=== PATIENT | male | born 1950 | race Caucasian/White ===

== ENCOUNTER 2017-07-10 17:00 | Inpatient (IN) ==
--- NOTE | 2017-07-10 17:39 | Emergency Department Note ---
Disposition Clinical Impression: Hypertensive urgency Headache Qualifiers: Headache type: unspecified Headache chronicity pattern: acute headache Intractability: not intractable Qualified Code(s): R51 - Headache Abdominal pain Qualifiers: Abdominal location: generalized Qualified Code(s): R10.84 - Generalized abdominal pain Disposition: Admitted As Inpatient Condition: Undetermined Referrals: Praneeth Ruiz MD [Primary Care Provider] - Forms: Work/School Release, ED Satisfaction Letter Time of Disposition: 19:19 General Adult HPI - General Chief complaint: ED Headache Stated complaint: headache, upper abdominal pain Time Seen by Provider: 07/10/17 17:06 Source: patient Mode of arrival: ambulatory Limitations: no limitations Nursing Notes Reviewed: Yes Vital Signs Reviewed: Yes - History of Present Illness HPI Narrative: 67-year-old male with history of hypertension arrives to the emergency department complaining of abdominal pain, generalized weakness and headache that has been ongoing for the past few days. The patient states he is not sleeping well due to the abdominal pain as well as headache. The patient arrives to the emergency department with a systolic blood pressure in the 220s. He denies any chest pain but does admit to some blurred vision. He states his abdominal pain is different than any abdominal pains had the past. He denies any other complaints at this time. He is resting comfortably in the room but is a very poor historian. Onset (ago): unknown Location: head, abdomen Radiation: non-radiation Pain Severity: moderate, severe Pain Scale: 10 Quality: aching Consistency: constant, Worsening Improves with: nothing Worsens with: nothing Associated symptoms: Reports: denies other symptoms - Related Data Home Medications Medication Instructions Recorded Confirmed Albuterol Sulfate [Proventil Hfa] 8 gm IH QID 05/13/15 05/13/15 Azithromycin [Zithromax] 250 mg PO DAILY 05/13/15 05/13/15 Citalopram Hydrobromide [Celexa] 40 mg PO DAILY 05/13/15 05/13/15 Diazepam [Valium] 10 mg PO BID 05/13/15 05/13/15 Gabapentin [Neurontin] 300 mg PO TID 05/13/15 05/13/15 Hydrochlorothiazide 20 mg PO DAILY 05/13/15 05/13/15 Lisinopril [Zestril] 20 mg PO DAILY 05/13/15 05/13/15 Polyethylene Glycol 3350 [MiraLAX] 17 gm PO DAILY 05/13/15 05/13/15 PredniSONE 20 mg PO BID 05/13/15 05/13/15 Sertraline HCl [Zoloft] 20 mg PO DAILY 05/13/15 05/13/15 Sildenafil Citrate [Viagra] 25 mg PO PRN PRN 05/13/15 05/13/15 Tizanidine [Zanaflex] 4 mg PO TID 05/13/15 05/13/15 Previous Rx's Medication Instructions Recorded Trazodone HCl 50 mg PO HS #30 tablet 01/12/17 Metoclopramide [Reglan] 10 mg PO QIDAC PRN 7 Days tablet 01/15/17 MDD 40 Allergies Allergy/AdvReac Type Severity Reaction Status Date / Time No Known Allergies Allergy Verified 07/04/17 17:36 All systems ED: reviewed and negative except as stated. Constitutional: Reports: weakness. Denies: fever, chills Cardiovascular: Denies: chest pain, palpitations, dyspnea on exertion Respiratory: Denies: cough, dyspnea, wheezes Gastrointestinal: Reports: abdominal pain. Denies: nausea, vomiting, diarrhea, constipation Genitourinary: Denies: urgency, dysuria Musculoskeletal: Denies: back pain Neurological: Reports: headache. Denies: weakness, numbness, paresthesias, confusion, abnormal gait, vertigo Psychiatric: Denies: anxiety Past Medical History - Past Medical History Attestation: Yes The following information was validated with the patient. Source: patient Medical history: Reports: COPD, GERD, GI bleed, hyperlipidemia, hypertension, myocardial infarction Surgical history: Reports: no surgical history Psychiatric history: Reports: anxiety, depression - Social History Smoking Status: Current some day smoker Smokeless Tobacco Status: No Alcohol use: Reports: none Drug use: Reports: none Physical Exam Bedside U/S demonstrated no obvious aortic dilation. - General Limitations: no limitations General appearance: alert, in no apparent distress - Head Head exam: atraumatic, normocephalic, normal inspection - Eye Eye exam: Present: normal appearance, PERRL, EOMI - ENT ENT exam: normal exam, normal oropharynx, mucous membranes moist - Neck Neck exam: Present: normal inspection, full ROM, trachea midline - Chest Chest inspection: Present: normal inspection - Respiratory Respiratory exam: Present: normal lung sounds bilaterally - Cardiovascular Cardiovascular exam: Present: regular rate, normal rhythm, normal heart sounds - Abdominal Exam Abdominal exam: Present: soft, tenderness (Diffuse). Absent: Non-Tender, distention, guarding, rebound, rigidity Course Vital Signs Temperature 97.9 F 07/10/17 17:02 Pulse Rate 80 07/10/17 17:02 Respiratory Rate 18 07/10/17 17:02 Blood Pressure 217/127 07/10/17 17:02 O2 Sat by Pulse Oximetry 96 07/10/17 17:02 Temperature 97.9 F 07/10/17 17:02 Pulse Rate 91 07/10/17 18:49 Respiratory Rate 16 07/10/17 18:49 Blood Pressure 158/98 07/10/17 18:49 O2 Sat by Pulse Oximetry 96 07/10/17 18:49 Oxygen Delivery Oxygen Delivery Room Air Medical Decision Making - MDM Narrative Medical decision making narrative: Patient's workup here in the emergency Department dentures no acute process to account for the patient's symptoms. The patient does have a history of hypertension and was very hypertensive upon arrival to the emergency department. His blood pressure was initially 220. He was given 2 doses of 10 mg of hydralazine which did lower his blood pressure. The patient's current blood pressure is 158 systolic. He is feeling much better at this time. We will admit the patient to the hospitalist service for further workup and care. Patient accepted by Dr. Buck. - Lab Data Lab results reviewed: Yes I reviewed the patient's lab results. Result diagrams: 07/10/17 17:14 07/10/17 17:14 Lab Results 07/10/17 07/10/17 07/10/17 Range/Units 17:14 17:14 17:14 WBC 8.9 (4.3-11.1) K/mcL RBC 5.85 H (4.19-5.50) M/mcL Hgb 17.5 H D (12.9-16.9) g/dL Hct 49.6 (37.5-50.1) % MCV 84.8 (83.0-100.0) fL MCH 29.9 (28.0-33.3) pg MCHC 35.3 (31.6-35.5) g/dL RDW 13.1 (11.5-14.5) % Plt Count 476 H (140-400) K/mcL MPV 8.9 L (9.4-12.4) fL Immature Gran % 0.2 (0-4) % Seg Neutrophils % 81.3 % Lymphocytes % 12.4 % Monocytes % 5.1 % Eosinophils % 0.1 % Basophils % 0.9 % Neutrophils # 7.2 (1.6-8.9) K/mcL Lymphocytes # 1.1 (0.6-4.6) K/mcL Monocytes # 0.5 (0.0-1.3) K/mcL Eosinophils # 0.0 (0.0-0.6) K/mcL Basophils # 0.1 (0.0-0.2) K/mcL Sodium 134 L (136-145) mEq/L Potassium 3.5 (3.5-4.5) mEq/L Chloride 99 (98-109) mEq/L Carbon Dioxide 22 (19-29) mEq/L BUN 13 (8-26) mg/dL Creatinine 1.16 (0.72-1.25) mg/dL Est GFR ( Amer) > 60 (> 60) Est GFR (Non-Af Amer) > 60 (> 60) BUN/Creatinine Ratio 11 (6-26) Glucose 139 H (70-99) mg/dL Calculated Osmolality 280 (280-300) Calcium 10.1 (8.6-10.8) mg/dL Total Bilirubin 0.9 (0.2-1.2) mg/dL Direct Bilirubin 0.4 (0.0-0.5) mg/dL Indirect Bilirubin 0.5 (0.0-1.2) mg/dL AST 11 (5-34) Units/L ALT 13 (0-55) Units/L Alkaline Phosphatase 109 (38-126) Units/L Troponin I 0.01 (0-0.03) ng/mL Serum Total Protein 8.7 H (6.0-8.3) g/dL Albumin 4.5 (3.5-5.0) g/dL Globulin 4.2 H (2.4-3.5) g/dL Albumin/Globulin Ratio 1.1 (1.1-2.2) Urine Color (Yellow) Urine Clarity (Clear) Urine pH (5.0-8.0) pH Units Ur Specific [place] (1.010-1.025) Urine Protein (Neg-Trace) mg/dL Urine Glucose (UA) (Normal) mg/dL Urine Ketones (Negative) mg/dL Urine Blood (Negative) Urine Nitrite (Negative) Urine Bilirubin (Negative) Urine Urobilinogen (Normal) mg/dL Ur Leukocyte Esterase (Negative) Urine Microscopic RBC (0-3) per hpf Urine Microscopic WBC (0-3) per hpf Ur Squamous Epith Cells (None-Few) per lpf Urine Bacteria (None-Few) per hpf Hyaline Casts (None-Few) per lpf Ur Culture Indicated? (NO) 07/10/17 Range/Units 18:40 WBC (4.3-11.1) K/mcL RBC (4.19-5.50) M/mcL Hgb (12.9-16.9) g/dL Hct (37.5-50.1) % MCV (83.0-100.0) fL MCH (28.0-33.3) pg MCHC (31.6-35.5) g/dL RDW (11.5-14.5) % Plt Count (140-400) K/mcL MPV (9.4-12.4) fL Immature Gran % (0-4) % Seg Neutrophils % % Lymphocytes % % Monocytes % % Eosinophils % % Basophils % % Neutrophils # (1.6-8.9) K/mcL Lymphocytes # (0.6-4.6) K/mcL Monocytes # (0.0-1.3) K/mcL Eosinophils # (0.0-0.6) K/mcL Basophils # (0.0-0.2) K/mcL Sodium (136-145) mEq/L Potassium (3.5-4.5) mEq/L Chloride (98-109) mEq/L Carbon Dioxide (19-29) mEq/L BUN (8-26) mg/dL Creatinine (0.72-1.25) mg/dL Est GFR ( Amer) (> 60) Est GFR (Non-Af Amer) (> 60) BUN/Creatinine Ratio (6-26) Glucose (70-99) mg/dL Calculated Osmolality (280-300) Calcium (8.6-10.8) mg/dL Total Bilirubin (0.2-1.2) mg/dL Direct Bilirubin (0.0-0.5) mg/dL Indirect Bilirubin (0.0-1.2) mg/dL AST (5-34) Units/L ALT (0-55) Units/L Alkaline Phosphatase (38-126) Units/L Troponin I (0-0.03) ng/mL Serum Total Protein (6.0-8.3) g/dL Albumin (3.5-5.0) g/dL Globulin (2.4-3.5) g/dL Albumin/Globulin Ratio (1.1-2.2) Urine Color Yellow (Yellow) Urine Clarity Clear (Clear) Urine pH 7.0 (5.0-8.0) pH Units Ur Specific [place] 1.021 (1.010-1.025) Urine Protein 30 H (Neg-Trace) mg/dL Urine Glucose (UA) Normal (Normal) mg/dL Urine Ketones 40 H (Negative) mg/dL Urine Blood Negative (Negative) Urine Nitrite Negative (Negative) Urine Bilirubin Negative (Negative) Urine Urobilinogen Normal (Normal) mg/dL Ur Leukocyte Esterase Negative (Negative) Urine Microscopic RBC 0-3 (0-3) per hpf Urine Microscopic WBC 0-3 (0-3) per hpf Ur Squamous Epith Cells Moderate H (None-Few) per lpf Urine Bacteria None Seen (None-Few) per hpf Hyaline Casts None Seen (None-Few) per lpf Ur Culture Indicated? NO (NO) - Radiology Data Radiology results reviewed: Yes I reviewed the patient's radiology results. - EKG Data EKG #1 EKG attestation: Yes I reviewed and interpreted this EKG. EKG results narrative: Heart rate 68 bpm. GA interval 163 ms. QTc 384 ms. Normal sinus rhythm. No ST elevation or ST depression noted. EKG similar appearance to EKG from 2016. EKG #2 1846: Heart rate 97 bpm. GA interval 128 ms. QTC 4:15 milliseconds. Normal axis. Normal sinus rhythm. No ST elevation or ST depression noted. Nonspecific changes noted primarily in leads 3 from EKG performed at 1747.
[2017-07-10 17:42] LABS: Basophils # 0.1 K/mcL (0.0-0.2); Basophils % 0.9 %; Eosinophils % 0.1 %; Hematocrit 49.6 % (37.5-50.1); Immature Granulocytes % 0.2 % (0-4); Lymphocytes # 1.1 K/mcL (0.6-4.6); Lymphocytes % 12.4 %; Mean Corpuscular HGB Conc 35.3 g/dL (31.6-35.5); Mean Corpuscular Hemoglobin 29.9 pg (28.0-33.3); Mean Corpuscular Volume 84.8 fL (83.0-100.0); Mean Platelet Volume 8.9 fL (9.4-12.4); Monocytes # 0.5 K/mcL (0.0-1.3); Monocytes % 5.1 %; Neutrophils # 7.2 K/mcL (1.6-8.9); Platelet Count 476 K/mcL (140-400); Red Blood Count 5.85 M/mcL (4.19-5.50); Red Cell Distribution Width 13.1 % (11.5-14.5); Segmented Neutrophils % 81.3 %
--- NOTE | 2017-07-10 17:43 | Emergency Department Note ---
START Narrative - START START: I examined this patient and my medical decision-making was reviewed with the Resident Physician. I agree with the documented findings, disposition and treatment plan as described except to the extent set forth below. 67 yo M here for elevated BP and headache and abd pain. will do ct head and abd pelvis BP is 190 systolic despite taking his normal lisinopril dose today. has not had a bp this elevated in the past. denies cp to me. abd pain is vague in quality. no pain radiation. will do imaging and labs. bp control with hydralazine due to HR in the upper 60s. slowly titrate his bp down. anticipate admission due to age and BP
[2017-07-10 17:51] LABS: Hemoglobin 17.5 g/dL (12.9-16.9)
[2017-07-10 17:59] LABS: Alanine Aminotransferase 13 Units/L (0-55); Albumin 4.5 g/dL (3.5-5.0); Albumin/Globulin Ratio 1.1 (1.1-2.2); Alkaline Phosphatase 109 Units/L (38-126); Aspartate Amino Transferase 11 Units/L (5-34); BUN/Creatinine Ratio 11 (6-26); Bilirubin,Direct 0.4 mg/dL (0.0-0.5); Bilirubin,Indirect 0.5 mg/dL (0.0-1.2); Bilirubin,Total 0.9 mg/dL (0.2-1.2); Blood Urea Nitrogen 13 mg/dL (8-26); Calcium 10.1 mg/dL (8.6-10.8); Carbon Dioxide 22 mEq/L (19-29); Chloride 99 mEq/L (98-109); Globulin 4.2 g/dL (2.4-3.5); Glucose 139 mg/dL (70-99); Osmolality,Calculated 280 (280-300); Potassium 3.5 mEq/L (3.5-4.5); Sodium 134 mEq/L (136-145); Total Protein 8.7 g/dL (6.0-8.3); eGFR For African Americans > 60 (> 60); eGFR For Non-African Americans > 60 (> 60)
[2017-07-10] MEDS ORDERED: Ondansetron 4 MG/2 ML VIAL IVP ONE ×2 (18:14→19:51)
[2017-07-10] MEDS ORDERED: *HR* HYDROmorphone (PF) 1 MG/ML SYRINGE IVP ONE (18:29)
[2017-07-10 19:08] LABS: Bilirubin,Urine Negative (Negative); Blood,Urine Negative (Negative); Clarity,Urine Clear (Clear); Color,Urine Yellow (Yellow); Glucose,Urine (UA) Normal (Normal); Ketones,Urine 40 mg/dL (Negative); Leukocyte Esterase,Urine Negative (Negative); Nitrite,Urine Negative (Negative); Protein,Urine 30 mg/dL (Neg-Trace); Specific Gravity,Urine 1.021 (1.010-1.025); Urobilinogen,Urine Normal (Normal)
[2017-07-10 19:10] LABS: Bacteria,Urine None Seen per hpf (None-Few); Hyaline Casts,Urine None Seen per lpf (None-Few); RBC,Urine 0-3 per hpf (0-3); Squamous Epithelial Cell,Urine Moderate per lpf (None-Few); WBC,Urine 0-3 per hpf (0-3)
[2017-07-10] MEDS ORDERED: *HR* Promethazine 25 MG/ML VIAL IVP ONE (19:19)
--- NOTE | 2017-07-10 20:48 | Internal Med History&Physical ---
Date of Encounter: 07/10/17 Time of Encounter: 20:47 Assessment and Plan (1) Hypertensive urgency Current visit: Yes Status: Acute hx of HTN presented with BP of 217/127, unclear which came first whether his current symptoms are from the uncontrolled HTN or the symptoms made it impossible for him to take his medications leading to his current BP, head CT was unremarkable, will resume his medications with BP monitoring for adjustment (2) Abdominal pain Current visit: Yes Status: Acute etiology remains unclear, abdominal CT reported non calcified stones, will get USG for further evaluation, supportive management for now Qualifiers: Abdominal location: generalized Qualified Code(s): R10.84 - Generalized abdominal pain (3) Depression Current visit: Yes Status: Chronic continue home medications Qualifiers: Depression Type: major depressive disorder Major depression recurrence: recurrent Active/Remission status: in partial remission Qualified Code(s): F33.41 - Major depressive disorder, recurrent, in partial remission (4) Diabetes Current visit: Yes Status: Chronic Type II diabetes mellitus on metformin,, A1c unknown, will update, to do basal bolus insulin regimen with sliding scale insulin for hyperglycemia coverage, will hold metformin due to the possible need for contrast enhanced studies Qualifiers: Diabetes mellitus type: type 2 Diabetes mellitus complication status: with neurologic complications Diabetes mellitus complication detail: with polyneuropathy Diabetes mellitus skilled nursing insulin use: without skilled nursing use Qualified Code(s): E11.42 - Type 2 diabetes mellitus with diabetic polyneuropathy (5) GERD (gastroesophageal reflux disease) Current visit: Yes Status: Chronic continue PPI Qualifiers: Esophagitis presence: without esophagitis Qualified Code(s): K21.9 - Gastro -esophageal reflux disease without esophagitis Internal Medicine - H&P: HPI Chief complaint: headache Admitted From: Emergency Dept Plans for Post Hospital Care: Home History of present illness: Mr. Ro is a 67 year old male with a history of type II diabetes mellitus complicated by peripheral neuropathy who came to the ER today for persistent headache and abdominal pain. Patient reports that he was in his usual state of health until about 5 days ago when he began experiencing headaches located at the back of his head, achy in character which radiates to the neck. Pain is intermittent in timing, 10/10 at the peak of its severity. It is associated with poor sleep, and he denies sleeping for the past 5 days. His symptoms were also associated with general malaise, poor appetite with aches and pain. His abdominal pain is below the umbilicus, achy in character, radiates diffusely over the lower abdomen associated with nausea, no vomiting but dry heaves. No diarrhea reported. He denies any recent sick contacts, fever, chills, or upper respiratory tract infection. He came to the ER today because his headache has been constant as well as constant abdominal pain with inability to keep anything down either liquids or solids. Past Med Surg Social Fam HX - Past Medical History Source: patient Medical history: COPD, diabetes, GERD, GI bleed, hyperlipidemia, hypertension, myocardial infarction, other (sigmoid diverticulosis) Psychiatric history: anxiety, depression - Past Surgical History Surgical History: no surgical history - Social History Smoking Status: Current some day smoker Smokeless Tobacco Status: No Alcohol use: none Drug use: none Current living situation: Home - Independent Activity Level: Independent ambulation - Family History Mother Living Status: Age at : 72 Cause of : Lung Cancer Hx Family Cardiac Disorders: Yes (HTN) Hx Family Respiratory Disorders: No Hx Family Cancer: Yes (Lung) Hx Family GI Disorders: No Hx Family Genitourinary Disorders: No Hx Family Endocrine Disorder: No Hx Family Musculoskeletal Disorders: No Hx Family Neuromuscular Disorders: No Hx Family Neurologic Disorders: Yes (CVA) Hx Family HEENT Disorders: No Hx Family Autoimmune Disorders: No Hx Family Reproductive Disorders: No Hx Family Psychosocial Disorders: No Hx Family Medical Disorders: No - Additional Family History Additional family history: HTN; in both parents, DM in sister, father from a massive DC in his 50's, mother had a stroke, no family history of GI problems to his knowledge Internal Medicine - H&P: Meds Albuterol Sulfate [Proventil Hfa] 2 puff IH QID PRN 05/13/15 [History] Gabapentin [Neurontin] 300 mg PO TID 05/13/15 [History] Polyethylene Glycol 3350 [MiraLAX] 17 gm PO DAILY 05/13/15 [History] Tizanidine [Zanaflex] 4 mg PO TID PRN 05/13/15 [History] Ascorbate Calcium [Vitamin C] 500 mg PO BID 07/10/17 [History] Aspirin Enteric Coated [Aspirin EC] 81 mg PO DAILY 07/10/17 [History] Duloxetine HCl [Cymbalta] 60 mg PO DAILY 07/10/17 [History] Ferrous Gluconate 324 mg PO BID 07/10/17 [History] HydrOXYzine Pamoate [Vistaril] 50 mg PO HS 07/10/17 [History] Metformin HCl [Glucophage] 1,000 mg PO BID 07/10/17 [History] Potassium Chloride [Klor-Con 10] 10 meq PO BID 07/10/17 [History] Simvastatin [Zocor] 20 mg PO HS 07/10/17 [History] Trazodone HCl 100 mg PO HS 07/10/17 [History] 3 Allergy/AdvReac Type Severity Reaction Status Date / Time No Known Allergies Allergy Verified 07/04/17 17:36 All Systems PM: A 10-system review of systems was performed and is negative for pertinent findings except as documented above in the HPI. - Constitutional Vitals: Temp Pulse Resp BP Pulse Ox 98.2 F 94 18 167/104 96 07/10/17 20:11 07/10/17 19:28 07/10/17 20:11 07/10/17 20:11 07/10/17 19:28 GENERAL: Adult male, sitting at the edge of his bed dry heaving, Alert, in obvious distress HEENT: NC/AT, EOMI, PERRLA, anicteric sclera, normal conjunctiva, supple, clear nares, dry mucous membranes, RESP: Lungs are clear to auscultation bilaterally, with good AE, no crackles or wheeze CARDIO: Normal heart sounds with RRR, no murmurs, no JVD, no ankle edema GI: Soft, full, tenderness just below umbilicus extending to the lower abdomen with mild guarding, RUQ tenderness noted, no organomegaly felt, normal bowel sounds heard MUSCULOSKELETAL: Grossly normal movements bilaterally, no deformities noted, NEUROLOGIC: CN 2-12 intact grossly. No gross motor/sensory deficit appreciated, PSYCHIATRY: AAO x 3. SKIN: dry skin Internal Med - H&P Results - Labs CBC & Chem 7: 07/10/17 17:14 07/11/17 05:39 - Diagnostic Studies CT scan - head Status: image reviewed by me CT scan - abdomen Status: image reviewed by me
[2017-07-10] MEDS ORDERED: Ondansetron 4 MG/2 ML VIAL IVP PRN (21:01)
[2017-07-10] MEDS ORDERED: Naloxone 0.4 MG/ML INJ IVP PRN (21:01)
[2017-07-10] MEDS ORDERED: *HR* Morphine 2 MG/ML SYRINGE IVP PRN (21:04)
[2017-07-10] MEDS ORDERED: Dextrose Gel 15 GM PO PRN ×2 (21:05)
[2017-07-10] MEDS ORDERED: D5% in Water 1,000 ML IVC PRN (21:05)
[2017-07-10] MEDS ORDERED: *HR* Dextrose 50 % in Water (Syg) 50 ML SYRINGE IVP PRN (21:05)
[2017-07-10] MEDS ORDERED: *HR* Labetalol 20 MG/4 ML SYRINGE IVP PRN (21:11)
[2017-07-10] MEDS ORDERED: *HR* Morphine 2 MG/ML SYRINGE ONE (21:43)
[2017-07-10] MEDS ORDERED: Ondansetron 4 MG/2 ML VIAL ONE (21:43)
[2017-07-10] MEDS: *HR* Morphine 2 MG/ML SYRINGE IVP PRN (21:45)
[2017-07-10] MEDS: Insulin LISPRO 300 UNITS/3 ML VIAL SQ SCH (23:10)
[2017-07-10] MEDS ORDERED: Metoclopramide 10 MG/2 ML VIAL IVP PRN (23:19)
[2017-07-11] MEDS: Ondansetron 4 MG/2 ML VIAL IVP SCH ×4 (00:04→16:50)
[2017-07-11] MEDS: amLODIPine 5 MG TABLET PO SCH ×2 (00:20→08:11)
[2017-07-11] MEDS: tiZANidine 4 MG TABLET PO PRN ×2 (00:20→21:33)
[2017-07-11] MEDS: Gabapentin 300 MG CAPSULE PO SCH ×4 (00:20→20:42)
[2017-07-11] MEDS: Insulin LISPRO 300 UNITS/3 ML VIAL SQ SCH ×5 (00:21→20:39)
[2017-07-11] MEDS: 0.9 % Sodium Chloride 1,000 ML IVC SCH ×4 (00:21→21:33)
[2017-07-11] MEDS: *HR* Morphine 2 MG/ML SYRINGE IVP PRN ×4 (04:37→18:54)
[2017-07-11 06:29] LABS: BUN/Creatinine Ratio 14 (6-26); Blood Urea Nitrogen 14 mg/dL (8-26); Calcium 9.8 mg/dL (8.6-10.8); Carbon Dioxide 23 mEq/L (19-29); Chloride 99 mEq/L (98-109); Glucose 121 mg/dL (70-99); Magnesium 2.2 mg/dL (1.6-2.6); Osmolality,Calculated 280 (280-300); Phosphorous 3.4 mg/dL (2.3-4.7); Potassium 3.7 mEq/L (3.5-4.5); Sodium 134 mEq/L (136-145); eGFR For African Americans > 60 (> 60); eGFR For Non-African Americans > 60 (> 60)
[2017-07-11] MEDS: Acetaminophen 325 MG TABLET PO PRN (08:10)
[2017-07-11] MEDS: Aspirin Enteric Coated 81 MG Tablet PO SCH (08:11)
[2017-07-11] MEDS: Ascorbic Acid 500 MG TABLET PO SCH ×2 (08:11→20:41)
--- NOTE | 2017-07-11 17:01 | Electrocardiograph Report ---
[address] [address] Test Date: 2017-07-10 Pat Name: Cain Ro Department: 103 Room: 3B Gender: M Director Of Philanthropy: WINNIE : 1950 Requested By: Evan Hill Order Number: [id number] Reading MD: Mango Basurto Measurements Intervals [place] Rate: 68 P: 46 IN: 163 QRS: 31 QRSD: 89 T: 48 QT: 367 QTc: 384 Interpretive Statements SINUS RHYTHM Electronically Signed On 07-11-2017 17:00:05 EDT by Mango Basurto
--- NOTE | 2017-07-11 17:02 | Electrocardiograph Report ---
[place] [address] Test Date: 2017-07-10 Pat Name: Cain Ro Department: 103 Room: 3B64 Gender: M Activities Officer: EVER : 1950 Requested By: Evan Hill Order Number: [id number] Reading MD: Mango Basurto Measurements Intervals [place] Rate: 97 P: 3 AK: 128 QRS: 16 QRSD: 97 T: 20 QT: 361 QTc: 415 Interpretive Statements SINUS RHYTHM INFERIOR MYOCARDIAL INFARCTION, PROBABLY OLD Electronically Signed On 07-11-2017 17:00:48 EDT by Mango Basurto
--- NOTE | 2017-07-11 19:46 | Internal Med Progress Note ---
Date of Encounter: 07/11/17 Time of Encounter: 13:30 - Assessment and plan (1) Sleep difficulties Current Visit: No Status: Acute Assessment and plan: Patient reports insomnia. We will give melatonin tonight. If it helps, patient will take at home. (2) Hypertensive urgency Current Visit: Yes Status: Acute Assessment and plan: Blood pressure has returned to within normal limits. We will continue to monitor and continue home medications. (3) Headache Current Visit: Yes Status: Acute Assessment and plan: Patient with occipital headache onset 2 days ago. He denies any vision changes. His neck is nontender to palpation, does not complain of pain with movement against resistance with normal range of motion. He denies any nausea or vomiting. Head CT is negative for any acute intracranial abnormality. We will give patient medication and reevaluate in the morning. Chest X-Ray 07/10/17 17:07 IMPRESSION: No acute process. D/ / Elliot Perry MD / Elliot Perry MD Interpreting Provider: Elliot Perry MD Head CT 07/10/17 17:07 IMPRESSION: No acute intracranial abnormality. D/ / Vishnu Betts MD / Vishnu Betts MD Interpreting Provider: Vishnu Betts MD Qualifiers: Headache type: unspecified Headache chronicity pattern: acute headache Intractability: not intractable Qualified Code(s): R51 - Headache (4) Abdominal pain Current Visit: Yes Status: Acute Assessment and plan: Patient reports sudden onset "hard" lower abdominal pain with nausea. Patient appears to be periumbilical. He has no history of anything in the past. He denies constipation, nausea, vomiting, diarrhea. Onset while sitting at his desk at home. Have episodes of nausea and vomiting at the time of onset of pain. He has been able to eat and drink this evening. Abdomen is soft and nontender to palpation with bowel sounds present. Abdominal ultrasound shows small stones and/or sludge within the gallbladder, otherwise unremarkable. There is no evidence of biliary obstruction. His hepatic steatosis with areas of focal fatty sparing along the gallbladder fossa. Abdomen pelvis CT shows no acute definite acute finding in the abdomen or pelvis , there might be a suspicion of a few small noncalcified gallstones. Mild sigmoid diverticulosis with no evidence of diverticulitis is noted. Urine negative for infection. We will continue to monitor vitals, labs, and patient condition. Qualifiers: Abdominal location: generalized Qualified Code(s): R10.84 - Generalized abdominal pain (5) Diabetes Current Visit: Yes Status: Chronic Assessment and plan: Type 2 diabetes. Continue sliding scale insulin, Accu-Cheks before meals at bedtime, diabetic diet. A1c ordered for morning. Qualifiers: Diabetes mellitus type: type 2 Diabetes mellitus complication status: with neurologic complications Diabetes mellitus complication detail: with polyneuropathy Diabetes mellitus detention insulin use: without rn long term care use Qualified Code(s): E11.42 - Type 2 diabetes mellitus with diabetic polyneuropathy (6) GERD (gastroesophageal reflux disease) Current Visit: Yes Status: Chronic Assessment and plan: Patient nontender and epigastric area. He denies any GERD exacerbation or symptoms. Continue home medications. Qualifiers: Esophagitis presence: without esophagitis Qualified Code(s): K21.9 - Gastro -esophageal reflux disease without esophagitis - Time Spent With Patient less than 15 minutes - Subjective Interval history: Patient was seen and assessed at 1330 this afternoon. Patient reports sudden onset yesterday of "hard" pain with nausea. No history of anything in the past. Onset while sitting at his desk at home. Patient states that the pain awakened him from his sleep. He also reports that he has not slept for 45 days. I will give him melatonin tonight. He denies any diarrhea, he was able to eat and drink his dinner tray tonight. Patient also reports a 9/10 headache since yesterday or the day before, patient is unsure. He does state that the headache began first. It is occipital in location, he describes it as achy. He has had no vision changes and he does have neck pain. Neck is nontender to palpation, pain does not increase with movement. We will continue to monitor. - Constitutional Vitals: Temp Pulse Resp BP Pulse Ox 98.9 F 93 16 138/87 93 07/11/17 18:57 07/11/17 18:57 07/11/17 18:57 07/11/17 18:57 07/11/17 18:57 General appearance: Present: A&O X 3, pleasant, no acute distress, answers questions appropriately - Head Head exam: Present: atraumatic, normal inspection, normocephalic - Eye Eye exam: Present: normal appearance, conjuntiva pink, sclera anicteric - Neck Neck exam general surgery: Present: normal inspection, supple, trachea midline. Absent: lymphadenopathy, tenderness - Respiratory Respiratory exam: Present: CTAB. Absent: accessory muscle use, chest wall tenderness, rales, respiratory distress, rhonchi, wheezes - Cardiovascular Cardiovascular exam: Present: RRR, +S1, +S2. Absent: diastolic murmur, gallop, rubs, systolic murmur - GI/Abdominal GI/Abdominal exam: Present: normal bowel sounds, soft. Absent: distended, hepatomegaly, tenderness - Extremities Exam Extremities exam: Present: normal capillary refill, warm, radial pulses palpable and symmetrical. Absent: calf tenderness, cyanotic, pedal edema, tenderness - Neurological Exam Neurological exam: Present: alert, oriented X3, no focal deficits, strengths equal and symetr throughout. Absent: facial droop, speech deficit - Psychiatric Psychiatric exam: Present: flat affect - Skin Skin exam: Present: dry, intact, normal color, warm. Absent: rash Internal Medicine: Result - Labs CBC & Chem 7: 07/10/17 17:14 07/11/17 05:39 Labs: BMP 07/11/17 05:39 Sodium 134 L Potassium 3.7 Chloride 99 Carbon Dioxide 23 BUN 14 Creatinine 1.02 Glucose 121 H Calcium 9.8 - Impressions Impressions Abdomen Ultrasound 07/10/17 21:12 IMPRESSION: Small stones and/ or sludge is seen layering dependently within the gallbladder which is otherwise unremarkable. No evidence of biliary obstruction. Hepatic steatosis with areas of focal fatty sparing along the gallbladder fossa. D/ / Shalonda Lynn MD / Shalonda Lynn MD Interpreting Provider: Shalonda Lynn MD Consult Discharge Plan - Plan Referrals: Praneeth Ruiz MD [Primary Care Provider] - 07/26/17 9:45 am
[2017-07-11] MEDS ORDERED: Ketorolac 30 MG/ML VIAL IVP ONE (19:50)
[2017-07-11] MEDS ORDERED: Ondansetron 4 MG/2 ML VIAL IVP ONE (19:51)
[2017-07-11] MEDS: *HR* Heparin 5,000 UNIT/ML VIAL SQ SCH (20:41)
[2017-07-11] MEDS ORDERED: Melatonin 3 MG TABLET PO SCH (21:00)
[2017-07-12] MEDS: Ondansetron 4 MG/2 ML VIAL IVP SCH (00:49)
[2017-07-12] MEDS: 0.9 % Sodium Chloride 1,000 ML IVC SCH ×2 (01:31→10:10)
[2017-07-12 04:41] LABS: Basophils # 0.1 K/mcL (0.0-0.2); Eosinophils # 0.1 K/mcL (0.0-0.6); Hematocrit 42.3 % (37.5-50.1); Immature Granulocytes % 0.1 % (0-4); Lymphocytes # 2.3 K/mcL (0.6-4.6); Lymphocytes % 32.8 %; Mean Corpuscular HGB Conc 33.6 g/dL (31.6-35.5); Mean Corpuscular Hemoglobin 29.7 pg (28.0-33.3); Mean Corpuscular Volume 88.5 fL (83.0-100.0); Mean Platelet Volume 9.4 fL (9.4-12.4); Monocytes # 0.7 K/mcL (0.0-1.3); Monocytes % 9.8 %; Neutrophils # 3.9 K/mcL (1.6-8.9); Platelet Count 322 K/mcL (140-400); Red Blood Count 4.78 M/mcL (4.19-5.50); Red Cell Distribution Width 13.8 % (11.5-14.5); Segmented Neutrophils % 55.3 %
[2017-07-12 04:42] LABS: Hemoglobin 14.2 g/dL (12.9-16.9)
[2017-07-12 05:04] LABS: BUN/Creatinine Ratio 14 (6-26); Blood Urea Nitrogen 15 mg/dL (8-26); Calcium 8.6 mg/dL (8.6-10.8); Carbon Dioxide 24 mEq/L (19-29); Chloride 106 mEq/L (98-109); Glucose 102 mg/dL (70-99); Osmolality,Calculated 289 (280-300); Potassium 3.7 mEq/L (3.5-4.5); Sodium 139 mEq/L (136-145); eGFR For African Americans > 60 (> 60); eGFR For Non-African Americans > 60 (> 60)
[2017-07-12 05:38] LABS: Hemoglobin A1C 5.6 %
[2017-07-12] MEDS: Acetaminophen 325 MG TABLET PO PRN (07:40)
[2017-07-12] MEDS: Aspirin Enteric Coated 81 MG Tablet PO SCH (07:40)
[2017-07-12] MEDS: amLODIPine 5 MG TABLET PO SCH (07:40)
[2017-07-12] MEDS: Gabapentin 300 MG CAPSULE PO SCH ×2 (07:40→13:43)
[2017-07-12] MEDS: Ascorbic Acid 500 MG TABLET PO SCH (07:41)
[2017-07-12] MEDS: *HR* Heparin 5,000 UNIT/ML VIAL SQ SCH ×2 (07:41→13:43)
[2017-07-12] MEDS: Insulin LISPRO 300 UNITS/3 ML VIAL SQ SCH ×3 (07:57→16:28)
[2017-07-12] MEDS: *HR* Morphine 2 MG/ML SYRINGE IVP PRN (13:48)
[2017-07-12 15:25] VITALS: BP 154/93
[2017-07-12] MEDS ORDERED: traMADol 50 MG TABLET PO STA (15:51)
--- NOTE | 2017-07-12 15:56 | Discharge Summary ---
Date of Encounter: 07/12/17 Time of Encounter: 15:30 - Discharge Diagnosis (1) Sleep difficulties Priority: Primary Status: Acute Comments: Pt reports chronic insomnia. We discussed changing sleep hygiene, he verbalized understanding. I will send him home with Melatonin 3mg po, as well. (2) Hypertensive urgency Priority: Secondary Status: Acute Comments: hx of HTN presented with BP of 217/127, unclear which came first whether his current symptoms are from the uncontrolled HTN or the symptoms made it impossible for him to take his medications leading to his current BP, head CT was unremarkable. Normal home medications were restarted and vs have been stable. Pt also reports headache that he reports has become some better when his blood pressure is in control. Head CT negative for intracranial abnormality (3) Headache Priority: Secondary Status: Acute Comments: Pt reports occpital headache for 3 days. Pt has obtained relief with BP control and with medication. CT head negative. Pt reports FAULKNER currently resolved. He denies n/v/d, vision changes, dizziness. Pt is neurologically intact. Speech is clear, EOMI, PERRLA. Pt will be sent home with few Tramadol and will need to follow up with PCP for continued monitoring and medication adjustments. Qualifiers: Headache type: unspecified Headache chronicity pattern: acute headache Intractability: not intractable Qualified Code(s): R51 - Headache (4) Abdominal pain Priority: Secondary Status: Resolved Comments: Pt denies periumbilical abdominal pain. Denies n/v/d. Abd soft, rounded, non- tender, BS x 4. Pt without biliary obstruction, and noted hepatic steatosis. Pt has small stone and/or sludge in the gallbladder without cholecystitis. Transaminases, urine, and liver panel WNL. Unclear etiology at this time. Abdomen/Pelvis CT 07/10/17 17:36 IMPRESSION: No definite acute finding in the abdomen or pelvis with the reservation that there is suspicion of a few small noncalcified gallstones. Follow-up gallbladder ultrasound after fasting would be helpful in further evaluation. Mild sigmoid colon diverticulosis with no definite evidence of diverticulitis. D/ / Vishnu Betts MD / Vishnu Betts MD Interpreting Provider: Vishnu Betts MD Abdomen Ultrasound 07/10/17 21:12 IMPRESSION: Small stones and/ or sludge is seen layering dependently within the gallbladder which is otherwise unremarkable. No evidence of biliary obstruction. Hepatic steatosis with areas of focal fatty sparing along the gallbladder fossa. D/ / Shalonda Lynn MD / Shalonda Lynn MD Interpreting Provider: Shalonda Lynn MD Qualifiers: Abdominal location: generalized Qualified Code(s): R10.84 - Generalized abdominal pain (5) Diabetes Priority: Secondary Status: Chronic Comments: Type II diabetes mellitus on metformin,, A1c 5.6. Continue home medications and accucheck regimen. Qualifiers: Diabetes mellitus type: type 2 Diabetes mellitus complication status: with neurologic complications Diabetes mellitus complication detail: with polyneuropathy Diabetes mellitus intermediate accountant insulin use: without retirement use Qualified Code(s): E11.42 - Type 2 diabetes mellitus with diabetic polyneuropathy (6) GERD (gastroesophageal reflux disease) Priority: Secondary Status: Chronic Qualifiers: Esophagitis presence: without esophagitis Qualified Code(s): K21.9 - Gastro -esophageal reflux disease without esophagitis - Discharge Medications Prescriptions: Melatonin 3 mg PO HS PRN #6 tablet PRN Reason: Insomnia Tramadol HCl [Ultram] 50 mg PO BID PRN #4 tab PRN Reason: Headache Home Medications: Albuterol Sulfate [Proventil Hfa] 2 puff IH QID PRN 05/13/15 [History] Gabapentin [Neurontin] 300 mg PO TID 05/13/15 [History] Polyethylene Glycol 3350 [MiraLAX] 17 gm PO DAILY 05/13/15 [History] Tizanidine [Zanaflex] 4 mg PO TID PRN 05/13/15 [History] Ascorbate Calcium [Vitamin C] 500 mg PO BID 07/10/17 [History] Aspirin Enteric Coated [Aspirin EC] 81 mg PO DAILY 07/10/17 [History] Duloxetine HCl [Cymbalta] 60 mg PO DAILY 07/10/17 [History] Ferrous Gluconate 324 mg PO BID 07/10/17 [History] HydrOXYzine Pamoate [Vistaril] 50 mg PO HS 07/10/17 [History] Metformin HCl [Glucophage] 1,000 mg PO BID 07/10/17 [History] Potassium Chloride [Klor-Con 10] 10 meq PO BID 07/10/17 [History] Simvastatin [Zocor] 20 mg PO HS 07/10/17 [History] Trazodone HCl 100 mg PO HS 07/10/17 [History] Melatonin 3 mg PO HS PRN #6 tablet 07/12/17 [Rx] Tramadol HCl [Ultram] 50 mg PO BID PRN #4 tab 07/12/17 [Rx] Allergies/Adverse Reactions: 3 Allergy/AdvReac Type Severity Reaction Status Date / Time No Known Allergies Allergy Verified 07/04/17 17:36 Date of admission: 07/11/17 20:04 Primary care physician: Praneeth Ruiz MD Discharging clinician: Linda Butler Anticipated date of discharge: 07/12/17 - Patient Status Disposition: Home, Self-Care Condition: Good Functional capacity at discharge: independent ambulation Overall status at discharge: patient is back to baseline - Discharge Instructions Follow Up With: Praneeth Ruiz MD [Primary Care Provider] - 07/26/17 9:45 am Additional Instructions: Follow up with your PCP in the next 7-10 days for a follow up visit. Return to the ER as needed for any other problems or concerns. Take your medications as directed. REsume your normal activities as tolerated. - Diet and Activity Activity: resume usual activities as tolerated Diet: advance to your usual diet Hospital course: Please see assessment and plan for hospital course. - Time Spent with Patient Total time spent providing and/or coordinating discharge services: Less than 30 minutes - Constitutional Vitals: Temp Pulse Resp BP Pulse Ox 98.4 F 77 17 154/93 98 07/12/17 15:23 07/12/17 15:23 07/12/17 15:23 07/12/17 15:23 07/12/17 15:23 General appearance: Present: cooperative, A&O X 3, pleasant, no acute distress, answers questions appropriately - Head Head exam: Present: atraumatic, normal inspection, normocephalic - Expanded Head Exam Head exam expanded: Absent: abrasion, general tenderness, hematoma, tenderness of temporal artery - Eye Eye exam: Present: normal appearance, PERRL, conjuntiva pink, sclera anicteric - ENT ENT exam: Present: mucous membranes moist, normal exam, normal external ear exam - Neck Neck exam general surgery: Present: normal inspection, supple, trachea midline. Absent: lymphadenopathy, tenderness - Respiratory Respiratory exam: Present: CTAB. Absent: accessory muscle use, decreased breath sounds, rales, respiratory distress, rhonchi, wheezes - Cardiovascular Cardiovascular exam: Present: RRR, +S1, +S2. Absent: diastolic murmur, gallop, rubs, systolic murmur - GI/Abdominal GI/Abdominal exam: Present: normal bowel sounds, soft. Absent: distended, hernia, hepatomegaly, pulsatile mass, tenderness - Extremities Exam Extremities exam: Present: warm, radial pulses palpable and symmetrical. Absent : calf tenderness, cyanotic, pedal edema - Neurological Exam Neurological exam: Present: alert, oriented X3, no focal deficits, strengths equal and symetr throughout. Absent: altered, facial droop, speech deficit - Skin Skin exam: Present: dry, intact, normal color, warm. Absent: rash
--- NOTE | 2017-07-12 16:53 | Physician Discharge Referral ---
Home Health/Hosp Referral Info Transfer to: Home Health Provider in Charge Post Discharge: PCP - Diagnosis (1) Sleep difficulties Priority: Secondary Status: Acute (2) Hypertensive urgency Priority: Primary Status: Acute (3) Headache Priority: Secondary Status: Acute (4) Abdominal pain Priority: Secondary Status: Resolved (5) Diabetes Priority: Secondary Status: Chronic (6) GERD (gastroesophageal reflux disease) Priority: Secondary Status: Chronic - Respiratory Orders Smoking Cessation: Smoking cessation has been advised. For more information, call the [place] Tobacco Quit Line at 0-120-WOWP-NOW. - Diet/Nutrition Diet/Nutrition Orders: Regular - Activity Activity Orders: Up ad patricia - Services Needed Following services are medically necessary services: Nursing, Home Health Aide, Physical Therapy, Occupational Therapy - Transfer Medications Prescriptions: Melatonin 3 mg PO HS PRN #6 tablet PRN Reason: Insomnia Tramadol HCl [Ultram] 50 mg PO BID PRN #4 tab PRN Reason: Headache Home Medications: Albuterol Sulfate [Proventil Hfa] 2 puff IH QID PRN 05/13/15 [History] Gabapentin [Neurontin] 300 mg PO TID 05/13/15 [History] Polyethylene Glycol 3350 [MiraLAX] 17 gm PO DAILY 05/13/15 [History] Tizanidine [Zanaflex] 4 mg PO TID PRN 05/13/15 [History] Ascorbate Calcium [Vitamin C] 500 mg PO BID 07/10/17 [History] Aspirin Enteric Coated [Aspirin EC] 81 mg PO DAILY 07/10/17 [History] Duloxetine HCl [Cymbalta] 60 mg PO DAILY 07/10/17 [History] Ferrous Gluconate 324 mg PO BID 07/10/17 [History] HydrOXYzine Pamoate [Vistaril] 50 mg PO HS 07/10/17 [History] Metformin HCl [Glucophage] 1,000 mg PO BID 07/10/17 [History] Potassium Chloride [Klor-Con 10] 10 meq PO BID 07/10/17 [History] Simvastatin [Zocor] 20 mg PO HS 07/10/17 [History] Trazodone HCl 100 mg PO HS 07/10/17 [History] Melatonin 3 mg PO HS PRN #6 tablet 07/12/17 [Rx] Tramadol HCl [Ultram] 50 mg PO BID PRN #4 tab 07/12/17 [Rx] Allergies/Adverse Reactions: 3 Allergy/AdvReac Type Severity Reaction Status Date / Time No Known Allergies Allergy Verified 07/04/17 17:36 Certification: Further, I certify that my clinical findings support that this patient is homebound (i.e. absences from home require considerable and taxing effort and are for medical reasons or baptism services or infrequently or short duration when for other reasons) because: Homebound Reason: Patient requires assistance of a person or device to safely leave home Attestation: My signature below is to certify that this patient is under my care and that I, or nurse practitioner, or a physician's events assistant working with me, has a face-to -face encounter with this patient.
== END 2017-07-12 17:12 | disposition home or self-care (01) | DRG 305 ==
LOC: 3BNU 17:00 → EMEROO 17:00 → 3BNU 20:27
PROVIDERS: ADMIT Hospitalist; ATTEND Registered Nurse

== ENCOUNTER 2017-07-14 21:38 | Observation (INO) ==
--- NOTE | 2017-07-14 23:45 | Emergency Department Note ---
Disposition Clinical Impression: Insomnia Qualifiers: Insomnia type: unspecified Qualified Code(s): G47.00 - Insomnia, unspecified Disposition: Still a Patient Condition: Fair General Adult HPI - General Chief complaint: ED Shortness of Breath/Dyspnea Stated complaint: nervous/anxious, multiple complaints Time Seen by Provider: 07/14/17 23:19 Source: patient Mode of arrival: private vehicle Limitations: no limitations Nursing Notes Reviewed: Yes Vital Signs Reviewed: Yes - History of Present Illness Onset (ago): week(s) Location: other (no pain, just cannot sleep, can't restat all, exhausted) Radiation: other (no pain) Pain Scale: 0 Quality: other Consistency: constant Improves with: nothing Worsens with: other (trying to rest) Associated symptoms: Reports: denies other symptoms Treatments Prior to Arrival: none - Related Data Home Medications Medication Instructions Recorded Confirmed Albuterol Sulfate [Proventil Hfa] 2 puff IH QID PRN 05/13/15 07/10/17 Gabapentin [Neurontin] 300 mg PO TID 05/13/15 07/10/17 Polyethylene Glycol 3350 [MiraLAX] 17 gm PO DAILY 05/13/15 07/10/17 Tizanidine [Zanaflex] 4 mg PO TID PRN 05/13/15 07/10/17 Ascorbate Calcium [Vitamin C] 500 mg PO BID 07/10/17 07/10/17 Aspirin Enteric Coated [Aspirin EC] 81 mg PO DAILY 07/10/17 07/10/17 Duloxetine HCl [Cymbalta] 60 mg PO DAILY 07/10/17 07/10/17 Ferrous Gluconate 324 mg PO BID 07/10/17 07/10/17 HydrOXYzine Pamoate [Vistaril] 50 mg PO HS 07/10/17 07/10/17 Metformin HCl [Glucophage] 1,000 mg PO BID 07/10/17 07/10/17 Potassium Chloride [Klor-Con 10] 10 meq PO BID 07/10/17 07/10/17 Simvastatin [Zocor] 20 mg PO HS 07/10/17 07/10/17 Trazodone HCl 100 mg PO HS 07/10/17 07/10/17 Previous Rx's Medication Instructions Recorded Melatonin 3 mg PO HS PRN #6 tablet 07/12/17 Tramadol HCl [Ultram] 50 mg PO BID PRN #4 tab 07/12/17 Allergies Allergy/AdvReac Type Severity Reaction Status Date / Time No Known Allergies Allergy Verified 07/14/17 22:07 All systems ED: reviewed and negative except as stated. Review of Systems: As Per HPI Constitutional: Denies: fever, chills, weakness Eyes: Denies: eye pain, eye discharge, vision change ENT ED: Denies: ear pain, throat pain, congestion, dysphagia Cardiovascular: Denies: chest pain, palpitations Respiratory: Denies: cough, dyspnea, wheezes, hemoptysis Gastrointestinal: Denies: abdominal pain, nausea, vomiting, diarrhea, constipation, hematemesis, melena, hematochezia Genitourinary: Denies: urgency, dysuria, frequency, hematuria Musculoskeletal: Denies: back pain, neck pain, joint swelling Integumentary: Denies: rash, abrasion, lesions Neurological: Denies: headache, weakness, numbness, paresthesias Psychiatric: Reports: as per HPI, anxiety Endocrine: Reports: as per HPI, fatigue Hematological/Lymphatic: Denies: easy bleeding, easy bruising Allergic/Immunologic: Denies: facial swelling, urticaria Past Medical History - Past Medical History Attestation: Yes The following information was validated with the patient. Source: patient Medical history: Reports: COPD, diabetes, GERD, GI bleed, hyperlipidemia, hypertension, myocardial infarction, other Surgical history: Reports: no surgical history Psychiatric history: Reports: anxiety - Social History Smoking Status: Current some day smoker Smokeless Tobacco Status: No Alcohol use: Reports: none Drug use: Reports: none Physical Exam - General Limitations: no limitations General appearance: alert, anxious - Head Head exam: atraumatic, normocephalic, normal inspection - Eye Eye exam: Present: normal appearance, PERRL. Absent: scleral icterus, conjunctival injection, periorbital swelling - ENT ENT exam: mucous membranes moist - Neck Neck exam: Present: normal inspection, full ROM, trachea midline - Chest Chest inspection: Present: normal inspection - Respiratory Respiratory exam: Present: normal lung sounds bilaterally. Absent: respiratory distress, wheezes, stridor - Cardiovascular Cardiovascular exam: Present: regular rate, normal rhythm, normal heart sounds - Abdominal Exam Abdominal exam: Present: soft, Non-Tender. Absent: distention, guarding, rebound, ascites, mass - Extremities Exam Extremities exam: Present: normal inspection, full ROM - Expanded Lower Extremity Exam Gait: observed and normal - Neurological Exam Neurological exam: Present: alert, oriented X3, CN II-XII intact, normal gait - Psychiatric Psychiatric exam: Present: normal affect, anxious - Skin Skin exam: Present: warm, dry, intact, normal color Course - Reevaluation(s) Reevaluation #1: no better after 2mg of Ativan. Will check labs and call 1A for psychiatric evaluation. Time: 01:14 Vital Signs Temperature 97.6 F 07/14/17 22:08 Pulse Rate 87 07/14/17 22:08 Respiratory Rate 20 07/14/17 22:08 Blood Pressure 175/111 07/14/17 22:08 O2 Sat by Pulse Oximetry 100 07/14/17 22:08 Temperature 97.6 F 07/14/17 22:08 Pulse Rate 85 07/15/17 03:07 Respiratory Rate 20 07/14/17 22:08 Blood Pressure 168/82 07/15/17 03:07 O2 Sat by Pulse Oximetry 100 07/14/17 22:08 Oxygen Delivery Oxygen Delivery Room Air Medical Decision Making - Medical Records Medical records reviewed: Yes I reviewed the patient's medical records. - Lab Data Lab results reviewed: Yes I reviewed the patient's lab results. Result diagrams: 07/15/17 01:04 07/15/17 01:04 Lab Results 07/15/17 07/15/17 07/15/17 Range/Units 01:04 01:04 01:04 WBC 10.9 D (4.3-11.1) K/mcL RBC 4.97 (4.19-5.50) M/mcL Hgb 15.2 (12.9-16.9) g/dL Hct 42.9 (37.5-50.1) % MCV 86.3 (83.0-100.0) fL MCH 30.6 (28.0-33.3) pg MCHC 35.4 (31.6-35.5) g/dL RDW 13.7 (11.5-14.5) % Plt Count 345 (140-400) K/mcL MPV 9.0 L (9.4-12.4) fL Immature Gran % 0.4 (0-4) % Seg Neutrophils % 68.5 % Lymphocytes % 21.9 % Monocytes % 6.9 % Eosinophils % 1.3 % Basophils % 1.0 % Neutrophils # 7.5 (1.6-8.9) K/mcL Lymphocytes # 2.4 (0.6-4.6) K/mcL Monocytes # 0.8 (0.0-1.3) K/mcL Eosinophils # 0.1 (0.0-0.6) K/mcL Basophils # 0.1 (0.0-0.2) K/mcL Immature Plt Fraction 2.2 (1.1-6.1) % Sodium 135 L (136-145) mEq/L Potassium 2.8 L (3.5-4.5) mEq/L Chloride 100 (98-109) mEq/L Carbon Dioxide 24 (19-29) mEq/L BUN 21 (8-26) mg/dL Creatinine 1.05 (0.72-1.25) mg/dL Est GFR ( Amer) > 60 (> 60) Est GFR (Non-Af Amer) > 60 (> 60) BUN/Creatinine Ratio 20 (6-26) Glucose 114 H (70-99) mg/dL Calculated Osmolality 284 (280-300) Calcium 10.0 D (8.6-10.8) mg/dL Total Bilirubin 0.3 (0.2-1.2) mg/dL Direct Bilirubin 0.2 (0.0-0.5) mg/dL Indirect Bilirubin 0.1 (0.0-1.2) mg/dL AST 11 (5-34) Units/L ALT 13 (0-55) Units/L Alkaline Phosphatase 79 (38-126) Units/L Creatine Kinase 46 (30-200) Units/L Troponin I (0-0.03) ng/mL Serum Total Protein 7.5 (6.0-8.3) g/dL Albumin 4.0 (3.5-5.0) g/dL Globulin 3.5 (2.4-3.5) g/dL Albumin/Globulin Ratio 1.1 (1.1-2.2) TSH (0.350-4.840) mcIU/mL Urine Color (Yellow) Urine Clarity (Clear) Urine pH (5.0-8.0) pH Units Ur Specific [place] (1.010-1.025) Urine Protein (Neg-Trace) mg/dL Urine Glucose (UA) (Normal) mg/dL Urine Ketones (Negative) mg/dL Urine Blood (Negative) Urine Nitrite (Negative) Urine Bilirubin (Negative) Urine Urobilinogen (Normal) mg/dL Ur Leukocyte Esterase (Negative) Ur Culture Indicated? (NO) Urine Opiates Screen (Xvyhrq=566) ng/mL Ur Barbiturates Screen (Jdlyyf=951) ng/mL Ur Phencyclidine Scrn (Cutoff=25) ng/mL Ur Amphetamines Screen (Wdmuiw=7571) ng/mL U Benzodiazepines Scrn (Pjuobk=560) ng/mL Urine Cocaine Screen (Cutoff= 300) ng/mL U Marijuana (THC) Screen (Cutoff = 50) ng/mL Ethyl Alcohol < 10 (0-10) mg/dL 07/15/17 07/15/17 07/15/17 Range/Units 01:04 01:04 01:15 WBC (4.3-11.1) K/mcL RBC (4.19-5.50) M/mcL Hgb (12.9-16.9) g/dL Hct (37.5-50.1) % MCV (83.0-100.0) fL MCH (28.0-33.3) pg MCHC (31.6-35.5) g/dL RDW (11.5-14.5) % Plt Count (140-400) K/mcL MPV (9.4-12.4) fL Immature Gran % (0-4) % Seg Neutrophils % % Lymphocytes % % Monocytes % % Eosinophils % % Basophils % % Neutrophils # (1.6-8.9) K/mcL Lymphocytes # (0.6-4.6) K/mcL Monocytes # (0.0-1.3) K/mcL Eosinophils # (0.0-0.6) K/mcL Basophils # (0.0-0.2) K/mcL Immature Plt Fraction (1.1-6.1) % Sodium (136-145) mEq/L Potassium (3.5-4.5) mEq/L Chloride (98-109) mEq/L Carbon Dioxide (19-29) mEq/L BUN (8-26) mg/dL Creatinine (0.72-1.25) mg/dL Est GFR ( Amer) (> 60) Est GFR (Non-Af Amer) (> 60) BUN/Creatinine Ratio (6-26) Glucose (70-99) mg/dL Calculated Osmolality (280-300) Calcium (8.6-10.8) mg/dL Total Bilirubin (0.2-1.2) mg/dL Direct Bilirubin (0.0-0.5) mg/dL Indirect Bilirubin (0.0-1.2) mg/dL AST (5-34) Units/L ALT (0-55) Units/L Alkaline Phosphatase (38-126) Units/L Creatine Kinase (30-200) Units/L Troponin I 0.00 (0-0.03) ng/mL Serum Total Protein (6.0-8.3) g/dL Albumin (3.5-5.0) g/dL Globulin (2.4-3.5) g/dL Albumin/Globulin Ratio (1.1-2.2) TSH 2.967 (0.350-4.840) mcIU/mL Urine Color Yellow (Yellow) Urine Clarity Clear (Clear) Urine pH 6.5 (5.0-8.0) pH Units Ur Specific [place] 1.018 (1.010-1.025) Urine Protein Negative (Neg-Trace) mg/dL Urine Glucose (UA) Normal (Normal) mg/dL Urine Ketones Negative (Negative) mg/dL Urine Blood Negative (Negative) Urine Nitrite Negative (Negative) Urine Bilirubin Negative (Negative) Urine Urobilinogen Normal (Normal) mg/dL Ur Leukocyte Esterase Negative (Negative) Ur Culture Indicated? NO (NO) Urine Opiates Screen (Wajybv=531) ng/mL Ur Barbiturates Screen (Tqkvcw=261) ng/mL Ur Phencyclidine Scrn (Cutoff=25) ng/mL Ur Amphetamines Screen (Ewwktg=9736) ng/mL U Benzodiazepines Scrn (Lajpjd=585) ng/mL Urine Cocaine Screen (Cutoff= 300) ng/mL U Marijuana (THC) Screen (Cutoff = 50) ng/mL Ethyl Alcohol (0-10) mg/dL 07/15/17 Range/Units 01:15 WBC (4.3-11.1) K/mcL RBC (4.19-5.50) M/mcL Hgb (12.9-16.9) g/dL Hct (37.5-50.1) % MCV (83.0-100.0) fL MCH (28.0-33.3) pg MCHC (31.6-35.5) g/dL RDW (11.5-14.5) % Plt Count (140-400) K/mcL MPV (9.4-12.4) fL Immature Gran % (0-4) % Seg Neutrophils % % Lymphocytes % % Monocytes % % Eosinophils % % Basophils % % Neutrophils # (1.6-8.9) K/mcL Lymphocytes # (0.6-4.6) K/mcL Monocytes # (0.0-1.3) K/mcL Eosinophils # (0.0-0.6) K/mcL Basophils # (0.0-0.2) K/mcL Immature Plt Fraction (1.1-6.1) % Sodium (136-145) mEq/L Potassium (3.5-4.5) mEq/L Chloride (98-109) mEq/L Carbon Dioxide (19-29) mEq/L BUN (8-26) mg/dL Creatinine (0.72-1.25) mg/dL Est GFR ( Amer) (> 60) Est GFR (Non-Af Amer) (> 60) BUN/Creatinine Ratio (6-26) Glucose (70-99) mg/dL Calculated Osmolality (280-300) Calcium (8.6-10.8) mg/dL Total Bilirubin (0.2-1.2) mg/dL Direct Bilirubin (0.0-0.5) mg/dL Indirect Bilirubin (0.0-1.2) mg/dL AST (5-34) Units/L ALT (0-55) Units/L Alkaline Phosphatase (38-126) Units/L Creatine Kinase (30-200) Units/L Troponin I (0-0.03) ng/mL Serum Total Protein (6.0-8.3) g/dL Albumin (3.5-5.0) g/dL Globulin (2.4-3.5) g/dL Albumin/Globulin Ratio (1.1-2.2) TSH (0.350-4.840) mcIU/mL Urine Color (Yellow) Urine Clarity (Clear) Urine pH (5.0-8.0) pH Units Ur Specific [place] (1.010-1.025) Urine Protein (Neg-Trace) mg/dL Urine Glucose (UA) (Normal) mg/dL Urine Ketones (Negative) mg/dL Urine Blood (Negative) Urine Nitrite (Negative) Urine Bilirubin (Negative) Urine Urobilinogen (Normal) mg/dL Ur Leukocyte Esterase (Negative) Ur Culture Indicated? (NO) Urine Opiates Screen Negative (Cmnidf=337) ng/mL Ur Barbiturates Screen Negative (Orsbfx=487) ng/mL Ur Phencyclidine Scrn Negative (Cutoff=25) ng/mL Ur Amphetamines Screen Negative (Vnhoqx=3856) ng/mL U Benzodiazepines Scrn Negative (Qmalik=328) ng/mL Urine Cocaine Screen Negative (Cutoff= 300) ng/mL U Marijuana (THC) Screen Negative (Cutoff = 50) ng/mL Ethyl Alcohol (0-10) mg/dL - EKG Data EKG #1 EKG attestation: Yes I reviewed and interpreted this EKG. EKG shows normal: sinus rhythm Rate: normal Rhythm: NSR [place]/QRS: normal When compared to previous EKG there are: no significant changes Interpretation: no acute changes, normal EKG Attestation Statement - Attestation Attestation: I, Colby Rubi MD, personally evaluated this patient and discussed their management with the midlevel provicer, PAC/SALES INTERN. I reviewed the midlevel provider 's note and agree with the documented findings, medical decision making, and plan of care. 67-year-old male presenting to the emergency department complaining of severe anxiety and insomnia. He states he has been unable sleep for days. He complains of just feeling anxious and jittery all over. He complains of pain in his feet and legs which is chronic. On examination patient is a well-developed well-nourished elderly male in no acute distress. He is extremely anxious. He is alert and oriented 3. There is no cyanosis or diaphoresis. Neck is supple and nontender. Full range of motion. Breath sounds clear and equal bilaterally. Heart regular rate and rhythm. Abdomen soft and nontender with normal bowel sounds. No gross focal neurological deficits. Trace pedal edema bilaterally. Labs reviewed. Potassium 2.8. Patient received Ativan 2 mg by mouth with no improvement in his condition. Psychiatry was consulted and after evaluation they recommended medical admission. The hospitalist, Dr. Buck, was consulted and accepted admission of the patient.
[2017-07-14] MEDS ORDERED: *HR* LORazepam 1 MG TABLET PO ONE (23:57)
[2017-07-15 01:11] LABS: Basophils # 0.1 K/mcL (0.0-0.2); Eosinophils # 0.1 K/mcL (0.0-0.6); Eosinophils % 1.3 %; Hematocrit 42.9 % (37.5-50.1); Hemoglobin 15.2 g/dL (12.9-16.9); Immature Granulocytes % 0.4 % (0-4); Immature Platelets 2.2 % (1.1-6.1); Lymphocytes # 2.4 K/mcL (0.6-4.6); Lymphocytes % 21.9 %; Mean Corpuscular HGB Conc 35.4 g/dL (31.6-35.5); Mean Corpuscular Hemoglobin 30.6 pg (28.0-33.3); Mean Corpuscular Volume 86.3 fL (83.0-100.0); Monocytes # 0.8 K/mcL (0.0-1.3); Monocytes % 6.9 %; Neutrophils # 7.5 K/mcL (1.6-8.9); Platelet Count 345 K/mcL (140-400); Red Blood Count 4.97 M/mcL (4.19-5.50); Red Cell Distribution Width 13.7 % (11.5-14.5); Segmented Neutrophils % 68.5 %
[2017-07-15 01:22] LABS: Bilirubin,Urine Negative (Negative); Blood,Urine Negative (Negative); Clarity,Urine Clear (Clear); Color,Urine Yellow (Yellow); Glucose,Urine (UA) Normal (Normal); Ketones,Urine Negative (Negative); Leukocyte Esterase,Urine Negative (Negative); Nitrite,Urine Negative (Negative); PH,Urine 6.5 pH Units (5.0-8.0); Protein,Urine Negative (Neg-Trace); Specific Gravity,Urine 1.018 (1.010-1.025); Urobilinogen,Urine Normal (Normal)
[2017-07-15 01:25] LABS: Alanine Aminotransferase 13 Units/L (0-55); Albumin/Globulin Ratio 1.1 (1.1-2.2); Alkaline Phosphatase 79 Units/L (38-126); Aspartate Amino Transferase 11 Units/L (5-34); BUN/Creatinine Ratio 20 (6-26); Bilirubin,Direct 0.2 mg/dL (0.0-0.5); Bilirubin,Indirect 0.1 mg/dL (0.0-1.2); Bilirubin,Total 0.3 mg/dL (0.2-1.2); Blood Urea Nitrogen 21 mg/dL (8-26); Carbon Dioxide 24 mEq/L (19-29); Chloride 100 mEq/L (98-109); Globulin 3.5 g/dL (2.4-3.5); Glucose 114 mg/dL (70-99); Osmolality,Calculated 284 (280-300); Potassium 2.8 mEq/L (3.5-4.5); Sodium 135 mEq/L (136-145); Total Protein 7.5 g/dL (6.0-8.3); eGFR For African Americans > 60 (> 60); eGFR For Non-African Americans > 60 (> 60)
[2017-07-15 01:28] LABS: Amphetamine Screen,Urine Negative ng/mL (Cutoff=1000); Barbiturate Screen,Urine Negative ng/mL (Cutoff=200); Benzodiazepines Screen,Urine Negative ng/mL (Cutoff=200); Cannabinoid Screen,Urine Negative ng/mL (Cutoff = 50); Cocaine Screen,Urine Negative ng/mL (Cutoff= 300); Opiate Screen,Urine Negative ng/mL (Cutoff=300); Phencyclidine Screen,Urine Negative ng/mL (Cutoff=25)
[2017-07-15 01:29] LABS: Ethanol < 10 mg/dL (0-10)
[2017-07-15] MEDS ORDERED: Melatonin 3 MG TABLET PO PRN (04:20)
--- NOTE | 2017-07-15 04:28 | Internal Med History&Physical ---
Date of Encounter: 07/17/17 Time of Encounter: 04:25 Assessment and Plan (1) Hypertension Status: Acute Continue home medications Qualifiers: Hypertension type: essential hypertension Qualified Code(s): I10 - Essential (primary) hypertension (2) Diabetes Status: Chronic Sliding scale insulin Qualifiers: Diabetes mellitus type: type 2 Diabetes mellitus complication status: with neurologic complications Diabetes mellitus complication detail: with polyneuropathy Diabetes mellitus correction insulin use: without termite treater use Qualified Code(s): E11.42 - Type 2 diabetes mellitus with diabetic polyneuropathy (3) Insomnia Status: Acute Suspect that this is related to depression. He denies suicidal ideations. Patient is on trazodone. Consult psychiatry for further input. I will start the patient on Ativan 1 mg TID PRN Qualifiers: Insomnia type: due to other mental disorder Qualified Code(s): F51.05 - Insomnia due to other mental disorder; F99 - Mental disorder, not otherwise specified; F99 - Mental disorder, not otherwise specified Internal Medicine - H&P: HPI Chief complaint: insomnia History of present illness: Mr. Ro is a 67 year old male with past medical history of diabetes mellitus , hypertension, gerd presents an emergency room today with the main complain of insomnia. Patient mentioned that he is not sleeping in many days. Patient mentioned that he has tried several medications but has not helped. He denies any other complains. He feels depressed but denies any suicidal or homicidal ideations. He was just discharged from the hospital a few days ago for the same reason. He takes trazodone for sleep. He denies taking any benzodiazepine. He does not drink excess caffeine products. He denies illicit drug use. No chest pain headache focal weakness blurry vision. Past Med Surg Social Fam HX - Past Medical History Medical history: COPD, diabetes, GERD, GI bleed, hyperlipidemia, hypertension, myocardial infarction, other Psychiatric history: anxiety - Past Surgical History Surgical History: no surgical history - Social History Smoking Status: Current some day smoker Smokeless Tobacco Status: No Alcohol use: none Drug use: none - Family History Mother Living Status: Hx Family Cardiac Disorders: Yes (HTN) Hx Family Respiratory Disorders: No Hx Family Cancer: Yes (Lung) Hx Family GI Disorders: No Hx Family Endocrine Disorder: No Hx Family Neuromuscular Disorders: No Hx Family Neurologic Disorders: Yes (CVA) Hx Family HEENT Disorders: No Hx Family Autoimmune Disorders: No Internal Medicine - H&P: Meds Albuterol Sulfate [Proventil Hfa] 2 puff IH QID PRN 05/13/15 [History] Polyethylene Glycol 3350 [MiraLAX] 17 gm PO DAILY 05/13/15 [History] Tizanidine [Zanaflex] 4 mg PO TID PRN 05/13/15 [History] Ascorbate Calcium [Vitamin C] 500 mg PO BID 07/10/17 [History] Aspirin Enteric Coated [Aspirin EC] 81 mg PO DAILY 07/10/17 [History] Ferrous Gluconate 324 mg PO BID 07/10/17 [History] HydrOXYzine Pamoate [Vistaril] 50 mg PO HS 07/10/17 [History] Metformin HCl [Glucophage] 1,000 mg PO BID 07/10/17 [History] Potassium Chloride [Klor-Con 10] 10 meq PO BID 07/10/17 [History] Simvastatin [Zocor] 20 mg PO HS 07/10/17 [History] Nortriptyline HCl 50 mg PO HS 07/15/17 [History] Gabapentin [Neurontin] 400 mg PO TID #90 capsule 07/16/17 [Rx] Quetiapine Fumarate [Seroquel] 50 mg PO HS #60 tablet 07/16/17 [Rx] 3 Allergy/AdvReac Type Severity Reaction Status Date / Time No Known Allergies Allergy Verified 07/14/17 22:07 All Systems PM: A 10-system review of systems was performed and is negative for pertinent findings except as documented above in the HPI. Review of systems: 10 point review systems is negative except for HPI - Constitutional Vitals: Temp Pulse Resp BP Pulse Ox 97.6 F 85 20 168/82 100 07/14/17 22:08 07/15/17 03:07 07/14/17 22:08 07/15/17 03:07 07/14/17 22:08 Exam: Gen.: patient is alert oriented times 3 not in distress. Cardiac: normal S1 S2 no additional sounds or murmurs chest: fair air entry. no active wheezing. No crackles or bronchial breathing. abdomen: soft nontender nondistended normal bowel sounds neuro: no focal deficit Internal Med - H&P Results - Labs CBC & Chem 7: 07/15/17 01:04 07/15/17 06:28
[2017-07-15] MEDS ORDERED: *HR* Morphine 2 MG/ML SYRINGE IVP ONE (05:57)
[2017-07-15] MEDS: Insulin LISPRO 300 UNITS/3 ML VIAL SQ SCH ×4 (07:19→23:10)
[2017-07-15] MEDS: Aspirin Enteric Coated 81 MG Tablet PO SCH (07:47)
[2017-07-15] MEDS: *HR* LORazepam 1 MG TABLET PO PRN (12:05)
--- NOTE | 2017-07-15 12:10 | Internal Med Progress Note ---
Date of Encounter: 07/15/17 Time of Encounter: 12:04 - Assessment and plan (1) Insomnia Current Visit: Yes Status: Acute Qualifiers: Insomnia type: unspecified Qualified Code(s): G47.00 - Insomnia, unspecified (2) Anxiety Current Visit: Yes Status: Acute (3) Diabetes Current Visit: Yes Status: Chronic Qualifiers: Diabetes mellitus type: type 2 Diabetes mellitus complication status: with neurologic complications Diabetes mellitus complication detail: with polyneuropathy Diabetes mellitus exterminator insulin use: without alf use Qualified Code(s): E11.42 - Type 2 diabetes mellitus with diabetic polyneuropathy (4) Hypertension Current Visit: Yes Status: Acute Qualifiers: Hypertension type: essential hypertension Qualified Code(s): I10 - Essential (primary) hypertension (5) Diabetic neuropathy Current Visit: Yes Status: Acute Qualifiers: Diabetes mellitus type: type 2 Diabetes mellitus complication detail: diabetic polyneuropathy Qualified Code(s): E11.42 - Type 2 diabetes mellitus with diabetic polyneuropathy - Subjective Interval history: Patient is 67-year-old admitted for insomnia. He was discharged home recently on trazodone and melatonin which she thinks does not work. He says he feels anxiety of palpitation and site could not elaborate on it any further. RN reported that he was noticed to be sleeping in the ER and on floor he is sleeping on and off. Psych consult is pending. He is complaining of bilateral lower extremity pain which is neither burning nor pins or needles. I asked him if he discuss this with his family doctor as it seems chronic and he says that his doctor does not prescribe any medication for this except for one time when he gave him some [place]. Not sure if there is any secondary gain involved. Accu -Chek 4 times a day with sliding scale coverage daily. Neurontin added. Continue trazodone. Neurontin with having to a low bedside helping with diabetic neuropathy as well as helpings insomnia - Constitutional Vitals: Temp Pulse Resp BP Pulse Ox 98.0 F 96 15 147/95 97 07/15/17 11:57 07/15/17 11:57 07/15/17 11:57 07/15/17 11:57 07/15/17 11:57 General appearance: Present: A&O X 3, no acute distress, answers questions appropriately - Head Head exam: Present: atraumatic, normocephalic - Eye Eye exam: Present: PERRL, conjuntiva pink, sclera anicteric Pupils: Present: PERRL - Neck Neck exam general surgery: Present: supple, trachea midline. Absent: lymphadenopathy - Respiratory Respiratory exam: Present: CTAB. Absent: accessory muscle use, rales, rhonchi, wheezes - Cardiovascular Cardiovascular exam: Present: RRR, +S1, +S2. Absent: diastolic murmur, gallop, rubs, systolic murmur - GI/Abdominal GI/Abdominal exam: Present: normal bowel sounds, soft, no peritoneal signs. Absent: distended, tenderness - Extremities Exam Extremities exam: Present: warm, radial pulses palpable and symmetrical. Absent : calf tenderness, cyanotic, pedal edema - Neurological Exam Neurological exam: Present: CN II-XII intact, oriented X3, no focal deficits. Absent: pronater drift, facial droop, speech deficit - Skin Skin exam: Present: dry, intact Internal Medicine: Result - Labs CBC & Chem 7: 07/15/17 01:04 07/15/17 06:28 Labs: BMP 07/15/17 06:28 Potassium 3.0 L Cardiac Enzymes 07/15/17 Range/Units 06:28 Troponin I 0.01 (0-0.03) ng/mL - VTE Documentation of Mechanical Device: Intermittent pneumatic compression device Consult Discharge Plan - Plan Referrals: Praneeth Ruiz MD [Primary Care Provider] -
[2017-07-15] MEDS: Gabapentin 400 MG CAPSULE PO SCH ×2 (14:47→21:54)
--- NOTE | 2017-07-15 16:15 | Psychiatry Progress Note ---
Date of Encounter: 07/15/17 Time of Encounter: 15:30 Subjective Interval history: Patient referred for psychiatric consultation regarding insomnia. Review of the records showed the patient had no previous or current psychiatric treatment or psychiatric condition. She is prescribed antidepressant by PCP but he has not taken it he described his insomnia as initial and mid insomnia exaggerated with pain in his feet from neuropathy and back pain. She reports a history of chronic back pain and extremity pain he was prescribed trazodone and melatonin without much improvement he did not endorse any symptoms of depression or suicidal ideation or psychosis. She denied any use of caffeine and alcohol or nicotine. Objective: Exam Patient orientation: Yes Person, Yes Time, Yes Place Level of alertness: Alert Patient appearance: Appropriate, Well Groomed Behavior: calm, cooperative Psychomotor activity: Normal Eye contact: Maintains Eye Contact Mood description: Euthymic/stable Affect description: congruent with mood, full range Speech pattern: Normal rate, Normal rhythm, Normal tone Speech volume: Normal Thought process: Linear, Goal Oriented Thought content: No Suicidal ideation, No Homicidal ideation, No Overt delusions Perceptual disturbances: No Auditory hallucinations, No Visual hallucinations Judgment: Fair Insight: Partial Results - Vital Signs Vital Signs: Temp Pulse Resp BP Pulse Ox 98.0 F 96 15 147/95 97 07/15/17 11:57 07/15/17 11:57 07/15/17 11:57 07/15/17 11:57 07/15/17 11:57 - Labs Labs: Laboratory Results - last 24 hr 07/15/17 07/15/17 07/15/17 05:03 06:28 06:28 Potassium 3.0 L POC Glucose 128 H Magnesium 2.0 Creatine Kinase 43 Troponin I 0.01 Assessment and Plan (1) Insomnia Current visit: Yes Status: Acute Plan: Continue hospitalization, Close observation, Suicide Precautions per unit protocol, Encourage participation in unit milieu, Group Therapy, Monitor sleep, Monitor appetite Additional Plan: 1. Neurology consults with recommended to evaluate his neuropathy 2. Trial of Seroquel 100 mg at bedtime is recommended 3. There are no acute psychiatric condition that require inpatient hospitalization at this time, patient can be referred to outpatient resources. Thank you for consultation Risks, benefits, side effects, alternatives discussed w/pt: Yes Patient agreeable to treatment: Yes Qualifiers: Insomnia type: unspecified Qualified Code(s): G47.00 - Insomnia, unspecified Consult Discharge Plan - Plan Referrals: Praneeth Ruiz MD [Primary Care Provider] -
--- NOTE | 2017-07-15 16:52 | Electrocardiograph Report ---
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
[2017-07-15] MEDS ORDERED: traZODone 50 MG TABLET PO SCH (21:00)
[2017-07-16] MEDS: Insulin LISPRO 300 UNITS/3 ML VIAL SQ SCH ×2 (07:50→12:47)
[2017-07-16] MEDS: Gabapentin 400 MG CAPSULE PO SCH (08:10)
[2017-07-16] MEDS: Aspirin Enteric Coated 81 MG Tablet PO SCH (08:10)
[2017-07-16] MEDS: *HR* LORazepam 1 MG TABLET PO PRN (10:58)
--- NOTE | 2017-07-16 11:22 | Discharge Summary ---
Date of Encounter: 07/16/17 Time of Encounter: 09:20 - Discharge Diagnosis (1) Insomnia Priority: Primary Status: Acute Qualifiers: Insomnia type: due to other mental disorder Qualified Code(s): F51.05 - Insomnia due to other mental disorder; F99 - Mental disorder, not otherwise specified; F99 - Mental disorder, not otherwise specified (2) Anxiety Priority: Secondary Status: Acute (3) Diabetes Priority: Secondary Status: Chronic Qualifiers: Diabetes mellitus type: type 2 Diabetes mellitus complication status: with neurologic complications Diabetes mellitus complication detail: with polyneuropathy Diabetes mellitus custodial insulin use: without director long term care use Qualified Code(s): E11.42 - Type 2 diabetes mellitus with diabetic polyneuropathy (4) Diabetic neuropathy Priority: Secondary Status: Acute Qualifiers: Diabetes mellitus type: type 2 Diabetes mellitus complication detail: diabetic polyneuropathy Qualified Code(s): E11.42 - Type 2 diabetes mellitus with diabetic polyneuropathy (5) Hypertension Priority: Secondary Status: Acute Qualifiers: Hypertension type: essential hypertension Qualified Code(s): I10 - Essential (primary) hypertension - Discharge Medications Prescriptions: Gabapentin [Neurontin] 400 mg PO TID #90 capsule Quetiapine Fumarate [Seroquel] 50 mg PO HS #60 tablet Home Medications: Albuterol Sulfate [Proventil Hfa] 2 puff IH QID PRN 05/13/15 [History] Polyethylene Glycol 3350 [MiraLAX] 17 gm PO DAILY 05/13/15 [History] Tizanidine [Zanaflex] 4 mg PO TID PRN 05/13/15 [History] Ascorbate Calcium [Vitamin C] 500 mg PO BID 07/10/17 [History] Aspirin Enteric Coated [Aspirin EC] 81 mg PO DAILY 07/10/17 [History] Ferrous Gluconate 324 mg PO BID 07/10/17 [History] HydrOXYzine Pamoate [Vistaril] 50 mg PO HS 07/10/17 [History] Metformin HCl [Glucophage] 1,000 mg PO BID 07/10/17 [History] Potassium Chloride [Klor-Con 10] 10 meq PO BID 07/10/17 [History] Simvastatin [Zocor] 20 mg PO HS 07/10/17 [History] Nortriptyline HCl 50 mg PO HS 07/15/17 [History] Gabapentin [Neurontin] 400 mg PO TID #90 capsule 07/16/17 [Rx] Quetiapine Fumarate [Seroquel] 50 mg PO HS #60 tablet 07/16/17 [Rx] Allergies/Adverse Reactions: 3 Allergy/AdvReac Type Severity Reaction Status Date / Time No Known Allergies Allergy Verified 07/14/17 22:07 Procedures/tests Complete & Pending: Procedures Performed prior 72 hours Category Date Time Status ECG 12 lead ECG [ECG] Routine Y 07/14/17 22:15 Completed Date of admission: 07/15/17 04:10 Primary care physician: Praneeth Ruiz MD Consults: 07/15/17 04:22 Consult to Psychiatry [CONS] Routine Consulting Provider: Psychiatry Nika Reason for Consult: insomnia Call Completed: No 07/15/17 08:36 Consult to Psychiatry [CONS] Routine Consulting Provider: Jaylen Maher Reason for Consult: insomnia/depression Time Notified: 08:36 Call Completed: Yes Discharging clinician: Qamar Perdomo Anticipated date of discharge: 07/16/17 - Patient Status Disposition: Home, Self-Care Condition: Good Functional capacity at discharge: independent ambulation Overall status at discharge: patient is progressing back to baseline - Discharge Instructions Instructions: Gabapentin (By mouth), Quetiapine (By mouth), Diabetes Mellitus Type 2 in Adults (DC), Chronic Hypertension (DC), Anxiety (DC) Follow Up With: Mercedez Blanton MD [Partnered Physician] - 08/14/17 2:45 pm (neuropathy) Praneeth Ruiz MD [Primary Care Provider] - 07/24/17 10:00 am (in 1 week) Additional Instructions: Follow up with Psychiatry to manage your anxiety. The PCP will need to make the referral. - Diet and Activity Activity: increase activity as tolerated Diet: diabetic diet, low fat, low cholesterol, low salt diet Hospital course: Mr. Ro is a 67 year old male patient with history of diabetes and diabetic neuropathy and anxiety disorder who was observed in the hospital after presenting with complaints of insomnia and persistent lower extremity pain. Psychiatry had initially been called in the ER and they recommended hospitalization under hospitalist service and that they would consult for psychiatric evaluation. Patient was initially treated with Ativan for his anxiet. Patient taking nortriptyline, hydroxyzine and trazodone at home for his insomnia with no significant improvement in his symptoms. He denied any excessive caffeine use. Patient was on Cymbalta for his anxiety and had been treated previously with gabapentin for his neuropathy. Patient was evaluated by psychiatry and was recommended that he be placed on Seroquel at bedtime. Patient has been able to sleep well here and feels better and is stable to be discharged home. He will follow up with his primary care provider and with psychiatry as outpatient for management of his chronic medical conditions. He most likely has restless leg syndrome and will need further evaluation and treatment for this. I am not starting him on any new medications for this as he is already on multiple psychotropic medications with increased risk for sedation and complications of polypharmacy. I will refer him to Neurology for further evaluation. Given his poor response to Cymbalta, this will be discontinued and he will be placed on Seroquel instead to control his anxiety better and to help with his insomnia. - Time Spent with Patient Total time spent providing and/or coordinating discharge services: Less than 30 minutes (25 min) - Constitutional Vitals: Temp Pulse Resp BP Pulse Ox 97.3 F L 75 16 136/84 96 07/16/17 06:00 07/16/17 06:00 07/16/17 06:00 07/16/17 06:00 07/16/17 06:00 General appearance: Present: A&O X 3, no acute distress, answers questions appropriately - Neck Neck exam general surgery: Present: supple, trachea midline. Absent: lymphadenopathy - Respiratory Respiratory exam: Present: CTAB. Absent: accessory muscle use, rales, rhonchi, wheezes - Cardiovascular Cardiovascular exam: Present: RRR, +S1, +S2. Absent: diastolic murmur, gallop, rubs, systolic murmur - GI/Abdominal GI/Abdominal exam: Present: normal bowel sounds, soft, no peritoneal signs. Absent: distended, tenderness - Extremities Exam Extremities exam: Present: warm, radial pulses palpable and symmetrical. Absent : calf tenderness, cyanotic, pedal edema - Neurological Exam Neurological exam: Present: oriented X3, no focal deficits. Absent: facial droop, speech deficit - VTE Documentation of Mechanical Device: Intermittent pneumatic compression device
[2017-07-16 11:37] VITALS: BP 144/94
[2017-07-17 20:00] LABS: CK-MB (CK isoenzymes) 0 % (0-4); CK-MM (CK-isoenzymes) 100 % (96-100)
[2017-07-18 07:57] LABS: CK Total (Ck Isoenzymes) 40 U/L (20-200); CK-BB (CK isoenzymes) 0 % (0-0)
== END 2017-07-16 15:10 | disposition home or self-care (01) ==
LOC: EMEROO 21:38 → 3NENU 21:38 → SUATTDRO 07-15 04:10 → 3NENU 07-15 04:52 → 3ANU 07-15 13:41
PROVIDERS: ADMIT Hospitalist; ATTEND Internal Medicine

== ENCOUNTER 2017-09-10 22:16 | Inpatient (IN) ==
[2017-09-11] MEDS ORDERED: *HR* Morphine 2 MG/ML SYRINGE IVP ONE ×2 (02:09→06:29)
[2017-09-11 02:25] LABS: Bilirubin,Urine Negative (Negative); Blood,Urine Trace (Negative); Clarity,Urine Clear (Clear); Color,Urine Yellow (Yellow); Glucose,Urine (UA) Normal (Normal); Ketones,Urine 40 mg/dL (Negative); Leukocyte Esterase,Urine Negative (Negative); Nitrite,Urine Negative (Negative); PH,Urine 6.5 pH Units (5.0-8.0); Protein,Urine >=300 mg/dL (Neg-Trace); Specific Gravity,Urine 1.025 (1.010-1.025); Urobilinogen,Urine Normal (Normal)
[2017-09-11 02:27] LABS: Bacteria,Urine None Seen per hpf (None-Few); Hyaline Casts,Urine None Seen per lpf (None-Few); Squamous Epithelial Cell,Urine Many per lpf (None-Few); WBC,Urine 0-3 per hpf (0-3)
[2017-09-11] MEDS ORDERED: Ondansetron 4 MG/2 ML VIAL ONE (03:02)
[2017-09-11] MEDS ORDERED: Ondansetron 4 MG/2 ML VIAL IVP ONE (03:03)
[2017-09-11 03:07] LABS: Basophils # 0.1 K/mcL (0.0-0.2); Basophils % 0.4 %; Hematocrit 51.3 % (37.5-50.1); Immature Granulocytes % 0.4 % (0-4); Lymphocytes # 1.1 K/mcL (0.6-4.6); Lymphocytes % 7.9 %; Mean Corpuscular HGB Conc 35.1 g/dL (31.6-35.5); Mean Corpuscular Hemoglobin 30.2 pg (28.0-33.3); Mean Corpuscular Volume 86.1 fL (83.0-100.0); Mean Platelet Volume 9.1 fL (9.4-12.4); Monocytes # 0.6 K/mcL (0.0-1.3); Monocytes % 4.6 %; Platelet Count 424 K/mcL (140-400); Red Blood Count 5.96 M/mcL (4.19-5.50); Red Cell Distribution Width 13.5 % (11.5-14.5); Segmented Neutrophils % 86.7 %
[2017-09-11 03:42] LABS: Alanine Aminotransferase 21 Units/L (7-52); Albumin 5.2 g/dL (3.5-5.7); Albumin/Globulin Ratio 1.6 (1.1-2.2); Alkaline Phosphatase 107 Units/L (34-104); Amylase 28 Units/L (29-103); Aspartate Amino Transferase 14 Units/L (13-39); BUN/Creatinine Ratio 14 (6-26); Bilirubin,Direct 0.1 mg/dL (0.0-0.2); Bilirubin,Indirect 0.5 mg/dL (0.0-1.2); Bilirubin,Total 0.6 mg/dL (0.3-1.0); Blood Urea Nitrogen 13 mg/dL (8-23); Calcium 9.8 mg/dL (8.6-10.3); Carbon Dioxide 20 mEq/L (23-29); Chloride 95 mEq/L (98-107); Globulin 3.3 g/dL (2.4-3.5); Glucose 137 mg/dL (70-105); Lipase < 3 Units/L (11-82); Osmolality,Calculated 270 (280-300); Potassium 3.3 mEq/L (3.5-5.1); Sodium 129 mEq/L (136-145); Total Protein 8.5 g/dL (6.4-8.9); eGFR For African Americans > 60 (> 60); eGFR For Non-African Americans > 60 (> 60)
[2017-09-11] MEDS ORDERED: *HR* Labetalol 20 MG/4 ML SYRINGE IVP ONE (04:48)
--- NOTE | 2017-09-11 05:00 | Emergency Department Note ---
Disposition Clinical Impression: Abdominal pain Qualifiers: Abdominal location: unspecified location Qualified Code(s): R10.9 - Unspecified abdominal pain Disposition: Home, Self-Care Condition: Good General Adult HPI - General Stated complaint: abd pain/chest tightness Time Seen by Provider: 09/10/17 22:32 Source: patient Limitations: no limitations Nursing Notes Reviewed: Yes Vital Signs Reviewed: Yes - History of Present Illness HPI Narrative: Patient presents with concern for abdominal pain. Patient has multiple previous emergency department visits for similar complaints. Ultimately was seen earlier and had a CT scan as well as basic laboratory analyses performed. There is no evidence of acute findings. The patient was ultimately discharged home and now returns with complaints of severe generalized abdominal pain. Non- peritoneal on arrival with normal vital signs. Denies nausea, vomiting, diarrhea. General: No acute distress HEENT: Pupils equal and reactive to light, extraoccular muscle movement is normal, TMS are clear bilaterally. Heart: RRR, No murmor rub or gallop Lungs: lungs clear, no wheezing, rales or ronchi. ABD: SNT, no focal areas or tenderness, no guarding or rebound tenderness. Extremities: No cyanosis, clubbing or edema Neuro: CN 2-12 in tact, no focal deficit. strength 5/5. Medical decision making Patient ultimately had repeat imaging as well as laboratory analyses given history of an "severe abdominal pain". Given his age I did proceed with ordering a lactate. His labs do suggest some degree of dehydration and he does now have a moderate leukocytosis. Repeat imaging reveals no acute surgical pathology. I would proceed with admission for serial abdominal exams and turning of laboratory analyses. Pain Scale: 6 - Related Data Home Medications Medication Instructions Recorded Confirmed Albuterol Sulfate [Proventil Hfa] 2 puff IH QID PRN 05/13/15 07/15/17 Polyethylene Glycol 3350 [MiraLAX] 17 gm PO DAILY 05/13/15 07/15/17 Tizanidine [Zanaflex] 4 mg PO TID PRN 05/13/15 07/15/17 Ascorbate Calcium [Vitamin C] 500 mg PO BID 07/10/17 07/15/17 Aspirin Enteric Coated [Aspirin EC] 81 mg PO DAILY 07/10/17 07/15/17 Ferrous Gluconate 324 mg PO BID 07/10/17 07/15/17 HydrOXYzine Pamoate [Vistaril] 50 mg PO HS 07/10/17 07/15/17 Metformin HCl [Glucophage] 1,000 mg PO BID 07/10/17 07/15/17 Potassium Chloride [Klor-Con 10] 10 meq PO BID 07/10/17 07/15/17 Simvastatin [Zocor] 20 mg PO HS 07/10/17 07/15/17 Nortriptyline HCl 50 mg PO HS 07/15/17 07/15/17 Previous Rx's Medication Instructions Recorded Gabapentin [Neurontin] 400 mg PO TID #90 capsule 07/16/17 Quetiapine Fumarate [Seroquel] 50 mg PO HS #60 tablet 07/16/17 predniSONE [PredniSONE] 60 mg PO DAILY #15 tablet 09/09/17 Dicyclomine [Bentyl] 10 mg PO QID #40 capsule 09/10/17 Lansoprazole [Prevacid] 15 mg PO BIDAC #60 capsule. 09/10/17 Ondansetron [Zofran] 8 mg PO Q8HR #12 tablet 09/10/17 Allergies Allergy/AdvReac Type Severity Reaction Status Date / Time No Known Allergies Allergy Verified 09/10/17 22:22 Past Medical History - Past Medical History Medical history: Reports: COPD, diabetes, GERD, GI bleed, hyperlipidemia, hypertension, myocardial infarction, other Surgical history: Reports: no surgical history Psychiatric history: Reports: anxiety - Social History Smoking Status: Current every day smoker Smokeless Tobacco Status: No Alcohol use: Reports: none Drug use: Reports: none Physical Exam - General Limitations: no limitations General appearance: alert, in no apparent distress Course Vital Signs Temperature 98.5 F 09/10/17 22:22 Pulse Rate 76 09/10/17 22:22 Respiratory Rate 18 09/10/17 22:22 Blood Pressure 190/132 09/10/17 22:22 O2 Sat by Pulse Oximetry 98 09/10/17 22:22 Temperature 98.5 F 09/10/17 22:22 Pulse Rate 89 09/11/17 04:49 Respiratory Rate 18 09/11/17 04:49 Blood Pressure 181/119 09/11/17 04:49 O2 Sat by Pulse Oximetry 97 09/11/17 04:49 Oxygen Delivery Oxygen Delivery Room Air Medical Decision Making - Lab Data Result diagrams: 09/11/17 02:58 09/11/17 02:58 Lab Results 09/11/17 09/11/17 09/11/17 Range/Units 02:15 02:58 02:58 WBC 13.8 H D (4.3-11.1) K/mcL RBC 5.96 H (4.19-5.50) M/mcL Hgb 18.0 H (12.9-16.9) g/dL Hct 51.3 H (37.5-50.1) % MCV 86.1 (83.0-100.0) fL MCH 30.2 (28.0-33.3) pg MCHC 35.1 (31.6-35.5) g/dL RDW 13.5 (11.5-14.5) % Plt Count 424 H (140-400) K/mcL MPV 9.1 L (9.4-12.4) fL Immature Gran % 0.4 (0-4) % Seg Neutrophils % 86.7 % Lymphocytes % 7.9 % Monocytes % 4.6 % Eosinophils % 0.0 % Basophils % 0.4 % Neutrophils # 12.0 H (1.6-8.9) K/mcL Lymphocytes # 1.1 (0.6-4.6) K/mcL Monocytes # 0.6 (0.0-1.3) K/mcL Eosinophils # 0.0 (0.0-0.6) K/mcL Basophils # 0.1 (0.0-0.2) K/mcL Sodium 129 L (136-145) mEq/L Potassium 3.3 L (3.5-5.1) mEq/L Chloride 95 L (98-107) mEq/L Carbon Dioxide 20 L (23-29) mEq/L BUN 13 (8-23) mg/dL Creatinine 0.96 (0.70-1.30) mg/dL Est GFR ( Amer) > 60 (> 60) Est GFR (Non-Af Amer) > 60 (> 60) BUN/Creatinine Ratio 14 (6-26) Glucose 137 H (70-105) mg/dL Calculated Osmolality 270 L (280-300) Lactic Acid (0.5-2.2) mmol/L Calcium 9.8 (8.6-10.3) mg/dL Total Bilirubin 0.6 (0.3-1.0) mg/dL Direct Bilirubin 0.1 (0.0-0.2) mg/dL Indirect Bilirubin 0.5 (0.0-1.2) mg/dL AST 14 (13-39) Units/L ALT 21 (7-52) Units/L Alkaline Phosphatase 107 H (34-104) Units/L Troponin I (< 0.04) ng/mL Serum Total Protein 8.5 (6.4-8.9) g/dL Albumin 5.2 (3.5-5.7) g/dL Globulin 3.3 (2.4-3.5) g/dL Albumin/Globulin Ratio 1.6 (1.1-2.2) Amylase 28 L (29-103) Units/L Lipase < 3 L (11-82) Units/L Urine Color Yellow (Yellow) Urine Clarity Clear (Clear) Urine pH 6.5 (5.0-8.0) pH Units Ur Specific [place] 1.025 (1.010-1.025) Urine Protein >=300 H (Neg-Trace) mg/dL Urine Glucose (UA) Normal (Normal) mg/dL Urine Ketones 40 H (Negative) mg/dL Urine Blood Trace H (Negative) Urine Nitrite Negative (Negative) Urine Bilirubin Negative (Negative) Urine Urobilinogen Normal (Normal) mg/dL Ur Leukocyte Esterase Negative (Negative) Urine Microscopic RBC 5-15 H (0-3) per hpf Urine Microscopic WBC 0-3 (0-3) per hpf Ur Squamous Epith Cells Many H (None-Few) per lpf Urine Bacteria None Seen (None-Few) per hpf Hyaline Casts None Seen (None-Few) per lpf Ur Culture Indicated? NO (NO) 09/11/17 09/11/17 Range/Units 02:58 02:58 WBC (4.3-11.1) K/mcL RBC (4.19-5.50) M/mcL Hgb (12.9-16.9) g/dL Hct (37.5-50.1) % MCV (83.0-100.0) fL MCH (28.0-33.3) pg MCHC (31.6-35.5) g/dL RDW (11.5-14.5) % Plt Count (140-400) K/mcL MPV (9.4-12.4) fL Immature Gran % (0-4) % Seg Neutrophils % % Lymphocytes % % Monocytes % % Eosinophils % % Basophils % % Neutrophils # (1.6-8.9) K/mcL Lymphocytes # (0.6-4.6) K/mcL Monocytes # (0.0-1.3) K/mcL Eosinophils # (0.0-0.6) K/mcL Basophils # (0.0-0.2) K/mcL Sodium (136-145) mEq/L Potassium (3.5-5.1) mEq/L Chloride (98-107) mEq/L Carbon Dioxide (23-29) mEq/L BUN (8-23) mg/dL Creatinine (0.70-1.30) mg/dL Est GFR ( Amer) (> 60) Est GFR (Non-Af Amer) (> 60) BUN/Creatinine Ratio (6-26) Glucose (70-105) mg/dL Calculated Osmolality (280-300) Lactic Acid 1.3 (0.5-2.2) mmol/L Calcium (8.6-10.3) mg/dL Total Bilirubin (0.3-1.0) mg/dL Direct Bilirubin (0.0-0.2) mg/dL Indirect Bilirubin (0.0-1.2) mg/dL AST (13-39) Units/L ALT (7-52) Units/L Alkaline Phosphatase (34-104) Units/L Troponin I < 0.03 (< 0.04) ng/mL Serum Total Protein (6.4-8.9) g/dL Albumin (3.5-5.7) g/dL Globulin (2.4-3.5) g/dL Albumin/Globulin Ratio (1.1-2.2) Amylase (29-103) Units/L Lipase (11-82) Units/L Urine Color (Yellow) Urine Clarity (Clear) Urine pH (5.0-8.0) pH Units Ur Specific [place] (1.010-1.025) Urine Protein (Neg-Trace) mg/dL Urine Glucose (UA) (Normal) mg/dL Urine Ketones (Negative) mg/dL Urine Blood (Negative) Urine Nitrite (Negative) Urine Bilirubin (Negative) Urine Urobilinogen (Normal) mg/dL Ur Leukocyte Esterase (Negative) Urine Microscopic RBC (0-3) per hpf Urine Microscopic WBC (0-3) per hpf Ur Squamous Epith Cells (None-Few) per lpf Urine Bacteria (None-Few) per hpf Hyaline Casts (None-Few) per lpf Ur Culture Indicated? (NO)
[2017-09-11] MEDS ORDERED: Acetaminophen 325 MG TABLET PO PRN (07:49)
[2017-09-11] MEDS ORDERED: Ondansetron 4 MG/2 ML VIAL IVP PRN (07:49)
[2017-09-11] MEDS ORDERED: Naloxone 0.4 MG/ML INJ IVP PRN (07:49)
[2017-09-11] MEDS ORDERED: *HR* Dextrose 50 % in Water (Syg) 50 ML SYRINGE IVP PRN (07:52)
[2017-09-11] MEDS ORDERED: Dextrose Gel 15 GM PO PRN ×2 (07:52)
[2017-09-11] MEDS ORDERED: D5% in Water 1,000 ML IVC PRN (07:52)
--- NOTE | 2017-09-11 07:56 | Internal Med History&Physical ---
Date of Encounter: 09/11/17 Time of Encounter: 07:56 Assessment and Plan (1) Abdominal pain Current visit: No Status: Resolved with reported severe abdominal pain with associated nausea and vomiting that started 1 day prior to presentation. No loose stool. Etiology unknown at this time. ABD CT nonacute, abdominal exam benign. LFTs, lipase normal. Possible gastroenteritis. Keep NPO, IV PPI. GI consulted Qualifiers: Abdominal location: generalized Qualified Code(s): R10.84 - Generalized abdominal pain (2) Hyponatremia Current visit: Yes Status: Acute Na 129; neurologically intact. Likely secondary to poor PO intake and emesis prior to presentation. IV fluids. Monitor repeat BMP (3) Hypokalemia Current visit: Yes Status: Acute K 3.3; replaced. Monitor repeat BMP. Mg pending (4) Chronic back pain Current visit: Yes Status: Acute per hx. Cont home gabapentin. Qualifiers: Back pain location: low back pain Back pain laterality: bilateral Sciatica presence: without sciatica Qualified Code(s): M54.5 - Low back pain; G89.29 - Other chronic pain; G89.29 - Other chronic pain (5) Hypertension Current visit: No Status: Acute per patient reported hx but not on BP medications at home. BP uncontrolled in ED with SBPs in 190s. Possibly due to ABD pain. BP improving as pain controlled. Monitor BP and initiate antihypertensives PRN Qualifiers: Hypertension type: essential hypertension Qualified Code(s): I10 - Essential (primary) hypertension (6) Depression Current visit: No Status: Acute per hx. patient has had multiple presentations to the ED loss 48 hours. States he lives alone and has little family. Per chart review, patient reported SI on previous recent presentation. Currently denies thoughts of harming or killing self. Cont home antidepressants Qualifiers: Depression Type: major depressive disorder Major depression recurrence: recurrent Active/Remission status: currently active Major depression episode severity: moderate Qualified Code(s): F33.1 - Major depressive disorder, recurrent, moderate (7) Diabetes Current visit: No Status: Chronic per hx. Holding home oral hypoglycemics. Monitor blood sugar and titrate PRN Qualifiers: Diabetes mellitus type: type 2 Diabetes mellitus complication status: with neurologic complications Diabetes mellitus complication detail: with polyneuropathy Diabetes mellitus superintendent terminal insulin use: without assisted use Qualified Code(s): E11.42 - Type 2 diabetes mellitus with diabetic polyneuropathy (8) DVT prophylaxis Current visit: Yes Status: Acute heparin Internal Medicine - H&P: HPI Chief complaint: Abdominal pain Admitted From: Home Plans for Post Hospital Care: Home History of present illness: Mr. Ro is a 67 year old male with past medical history diabetes, hypertension, CAD, chronic back pain and depression who presented to [facility] on 09/11/2017 with complaints of severe abdominal pain. He was placed in observation status for further workup and treatment. Patient obtained from chart review and patient report. Per chart review, patient has had multiple presentations to the ED in the past 48 hours with multiple, vague complaints ranging from leg pain to fatigue to weakness, depression with possible SI and now severe abdominal pain. On my exam he reports severe abdominal pain that started yesterday morning with associated nausea and vomiting. No diarrhea. Abdominal pain localizes to epigastric area and radiates to chest, worse with eating. IV morphine has helped relieve abdominal pain., Denies chest pain, no shortness of breath. No sick contacts that he is aware of. Past Med Surg Social Fam HX - Past Medical History Medical history: COPD, diabetes, GERD, GI bleed, hyperlipidemia, hypertension, myocardial infarction, other Psychiatric history: anxiety - Past Surgical History Surgical History: no surgical history - Social History Smoking Status: Current every day smoker Smokeless Tobacco Status: No Alcohol use: none Drug use: none - Family History Mother Living Status: Hx Family Cardiac Disorders: Yes (HTN) Hx Family Respiratory Disorders: No Hx Family Cancer: Yes (Lung) Hx Family GI Disorders: No Hx Family Endocrine Disorder: No Hx Family Neuromuscular Disorders: No Hx Family Neurologic Disorders: Yes (CVA) Hx Family HEENT Disorders: No Hx Family Autoimmune Disorders: No Internal Medicine - H&P: Meds Albuterol Sulfate [Proventil Hfa] 2 puff IH QID PRN 05/13/15 [History] Polyethylene Glycol 3350 [MiraLAX] 17 gm PO DAILY PRN 05/13/15 [History] Tizanidine [Zanaflex] 4 mg PO TID PRN 05/13/15 [History] Ascorbate Calcium [Vitamin C] 500 mg PO BID 07/10/17 [History] Aspirin Enteric Coated [Aspirin EC] 81 mg PO DAILY 07/10/17 [History] Ferrous Gluconate 324 mg PO BID 07/10/17 [History] Metformin HCl [Glucophage] 1,000 mg PO BID 07/10/17 [History] Potassium Chloride [Klor-Con 10] 10 meq PO BID 07/10/17 [History] Simvastatin [Zocor] 20 mg PO HS 07/10/17 [History] Quetiapine Fumarate [Seroquel] 50 mg PO HS #60 tablet 07/16/17 [Rx] predniSONE [PredniSONE] 60 mg PO DAILY #15 tablet 09/09/17 [Rx] Lansoprazole [Prevacid] 15 mg PO BIDAC #60 capsule.dr 09/10/17 [Rx] ARIPiprazole [Abilify] 2 mg PO DAILY 09/11/17 [History] Duloxetine HCl [Cymbalta] 60 mg PO BID 09/11/17 [History] Gabapentin [Neurontin] 300 mg PO QID 09/11/17 [History] Ondansetron [Zofran] 8 mg PO Q8HR PRN 09/11/17 [History] traZODone [TraZODone] 50 mg PO HS 09/11/17 [History] 3 Allergy/AdvReac Type Severity Reaction Status Date / Time No Known Allergies Allergy Verified 09/10/17 22:22 All Systems PM: A 10-system review of systems was performed and is negative for pertinent findings except as documented above in the HPI. - Constitutional Constitutional: no chills, no fever(s), no night sweats - EENT Eyes: no change in vision, no discharge, no pain, no photophobia Ears: no ear discharge, no ear pain, no tinnitus Nose, mouth and throat: no dysphagia, no nasal discharge, no neck pain, no sore throat - Cardiovascular Cardiovascular ROS IM: no chest pain, no diaphoresis, no dyspnea, no lightheadedness, no palpitations, no syncope - Respiratory Respiratory: no cough, no dyspnea, no wheezing, no excessive phlegm production - Gastrointestinal Gastrointestinal: abdominal pain, nausea, vomiting, no diarrhea, no hematemesis , no hematochezia, no melena - Musculoskeletal Musculoskeletal ROS IM: no numbness, no tingling - Integumentary Integumentary IM: no rash, no unusual bruising - Neurological Neurological ROS: no confusion, no convulsions, no focal weakness, no numbness, no tingling, no tremor(s) - Hematologic/Lymphatic Hematologic/Lymphatic: no easy bruising - Constitutional Vitals: Temp Pulse Resp BP Pulse Ox 98.3 F 78 16 156/92 95 09/11/17 06:34 09/11/17 06:34 09/11/17 06:34 09/11/17 06:34 09/11/17 06:34 General appearance: Present: A&O X 3, no acute distress - Head Head exam: Present: atraumatic, normocephalic - Eye Eye exam: Present: PERRL, conjuntiva pink, sclera anicteric Pupils: Present: PERRL - Neck Neck exam general surgery: Present: supple, trachea midline. Absent: lymphadenopathy - Respiratory Respiratory exam: Present: CTAB. Absent: accessory muscle use, rales, rhonchi, wheezes - Cardiovascular Cardiovascular exam: Present: RRR, +S1, +S2. Absent: diastolic murmur, gallop, rubs, systolic murmur - GI/Abdominal GI/Abdominal exam: Present: normal bowel sounds, soft, no peritoneal signs. Absent: distended, tenderness - Extremities Exam Extremities exam: Present: warm, radial pulses palpable and symmetrical. Absent : calf tenderness, cyanotic, pedal edema - Neurological Exam Neurological exam: Present: CN II-XII intact, oriented X3, no focal deficits. Absent: pronater drift, facial droop, speech deficit - Skin Skin exam: Present: dry, intact Internal Med - H&P Results - Labs CBC & Chem 7: 09/11/17 02:58 09/11/17 02:58
[2017-09-11] MEDS ORDERED: tiZANidine 4 MG TABLET PO PRN (08:06)
[2017-09-11] MEDS: ARIPiprazole 2 MG TABLET PO SCH (10:16)
[2017-09-11] MEDS: Aspirin Enteric Coated 81 MG Tablet PO SCH (10:17)
[2017-09-11] MEDS: Gabapentin 300 MG CAPSULE PO SCH ×4 (10:17→20:16)
[2017-09-11] MEDS: Pantoprazole 40 MG VIAL IVP SCH (10:28)
[2017-09-11] MEDS: 0.9 % Sodium Chloride 1,000 ML IVC SCH ×2 (10:29→20:22)
[2017-09-11] MEDS ORDERED: *HR* Morphine 2 MG/ML SYRINGE IVP PRN (10:32)
--- NOTE | 2017-09-11 10:52 | Gastroenterology Consult Note ---
<Tres Swanson - Last Filed: 09/11/17 10:49> Date of Encounter: 09/11/17 Time of Encounter: 10:15 - Assessment and plan (1) Abdominal pain Current Visit: No Status: Resolved Assessment and plan: CTA of abd/pelvis with no acute findings. CT A/P 09/10/2017 no acute process, moderate stool throughout the colon and rectum, c/w constipation. Keep patient NPO for now. Plan for EGD today to r/o esophagitis, gastritis, duodenitis, PUD, MW tear, or AVM. Continue PPI. Qualifiers: Abdominal location: generalized Qualified Code(s): R10.84 - Generalized abdominal pain (2) Constipation Current Visit: Yes Status: Acute Assessment and plan: Recommend daily fiber supplement. Can use Miralax up to BID PRN. Qualifiers: Constipation type: unspecified constipation type Qualified Code(s): K59.00 - Constipation, unspecified - Time Spent With Patient Total time spent is greater than 50% in coordination of care (as documented) at patient's floor/unit and/or counseling patient: GI History of Present Illness - Data of Consult Patient: new to practice Consult date: 09/11/17 Requesting Physician: Elen Meredith CNP - Consult Narrative Reason for consult: Abdominal pain, N/V History of present illness: Mr. Ro is a 67 year old male with PMHx of COPD, DM, GERD, GI bleed, HLD, HTN , [place] who presented to the ED with complaints of severe abdominal pain. He has had multiple presentations to the ED in the past 48 hours with multiple, vague complaints ranging from leg pain to fatigue to weakness, depression and now severe abdominal pain. He states the abdominal pain started the day prior to admission along with nausea and vomiting, which is worsened with eating. Patient reports having BM every 3-4 days. He denies fever, chest pain, shortness of breath, diarrhea, melena, or hematochezia. Procedures: EGD 03/27/2015 Dr. Rajput: Normal Colonoscopy 04/22/2013 Dr. French: Hyperplastic polyp. Repeat 5 years NSAIDs: ASA Anticoagulation: None Past Med Surg Social Fam HX - Past Medical History Medical history: COPD, diabetes, GERD, GI bleed, hyperlipidemia, hypertension, myocardial infarction, other Psychiatric history: anxiety - Past Surgical History Surgical History: no surgical history - Social History Smoking Status: Current every day smoker Smokeless Tobacco Status: No Alcohol use: none Drug use: none - Family History Mother Living Status: Hx Family Cardiac Disorders: Yes (HTN) Hx Family Respiratory Disorders: No Hx Family Cancer: Yes (Lung) Hx Family GI Disorders: No Hx Family Endocrine Disorder: No Hx Family Neuromuscular Disorders: No Hx Family Neurologic Disorders: Yes (CVA) Hx Family HEENT Disorders: No Hx Family Autoimmune Disorders: No - Gastrointestinal Gastrointestinal: Present: as per HPI - Constitutional Constitutional: as per HPI - EENT Eyes: as per HPI Ears: Present: as per HPI Nose, mouth and throat: Present: as per HPI - Cardiovascular Cardiovascular ROS: Present: as per HPI - Respiratory Respiratory IM: Present: as per HPI - Genitourinary Genitourinary: Absent: change in color, Urinary frequency - Neurological ROS Neurological GI: Present: as per HPI - Hematologic/Lymphatic Hematologic/Lymphatic pediatric: Present: as per HPI - Musculoskeletal Musculoskeletal ROS GI: Present: as per HPI - Integumentary Integumentary GI: Present: as per HPI - Psychiatric ROS Psychiatric GI: Present: as per HPI - Endocrine Endocrine IM: Present: as per HPI - Constitutional Vitals: Temp Pulse Resp BP Pulse Ox 98.3 F 78 16 156/92 95 09/11/17 06:34 09/11/17 06:34 09/11/17 06:34 09/11/17 06:34 09/11/17 06:34 General appearance: Present: cooperative, A&O X 3, no acute distress, answers questions appropriately - Head Head exam: Present: atraumatic, normocephalic - Eye Eye exam: Present: normal appearance, sclera anicteric - ENT ENT exam: Present: mucous membranes dry - Neck Neck exam general surgery: Present: normal inspection, trachea midline - Respiratory Respiratory exam: Present: CTAB. Absent: rales, rhonchi - Cardiovascular Cardiovascular exam: Present: RRR, +S1, +S2 - GI/Abdominal GI/Abdominal exam: Present: soft, no peritoneal signs. Absent: distended, firm , guarding, tenderness - Rectal Rectal exam: Present: deferred - Extremities Exam Extremities exam: Present: warm - Neurological Exam Neurological exam: Present: no focal deficits - Psychiatric Psychiatric exam: Present: normal affect, normal mood - Skin Skin exam: Present: dry, intact, normal color, warm Results - Labs CBC & Chem 7: 09/11/17 02:58 09/11/17 02:58 Labs: Last Result Calcium 9.8 mg/dL (8.6-10.3) 09/11/17 02:58 Troponin I < 0.03 ng/mL (< 0.04) 09/11/17 08:05 Entire Visit Hgb 18.0 g/dL (12.9-16.9) H 09/11/17 02:58 Hct 51.3 % (37.5-50.1) H 09/11/17 02:58 Total Bilirubin 0.6 mg/dL (0.3-1.0) 09/11/17 02:58 AST 14 Units/L (13-39) 09/11/17 02:58 ALT 21 Units/L (7-52) 09/11/17 02:58 Amylase 28 Units/L (29-103) L 09/11/17 02:58 Lipase < 3 Units/L (11-82) L 09/11/17 02:58 Consult Discharge Plan - Plan Referrals: Praneeth Ruiz MD [Primary Care Provider] - <Randell French - Last Filed: 09/11/17 14:24> Date of Encounter: 09/11/17 Time of Encounter: 13:00 - Time Spent With Patient Total time spent is greater than 50% in coordination of care (as documented) at patient's floor/unit and/or counseling patient: GI History of Present Illness - Data of Consult Requesting Physician: Elen Meredith CNP - Consult Narrative History of present illness: Mr. Ro is a 67 year old male - Constitutional Vitals: Temp Pulse Resp BP Pulse Ox 98.2 F 80 15 155/98 96 09/11/17 11:02 09/11/17 12:55 09/11/17 12:55 09/11/17 12:55 09/11/17 12:55 Results - Labs CBC & Chem 7: 09/11/17 02:58 09/11/17 02:58 Labs: Last Result Calcium 9.8 mg/dL (8.6-10.3) 09/11/17 02:58 Troponin I < 0.03 ng/mL (< 0.04) 12/27/17 13:31 Entire Visit Hgb 18.0 g/dL (12.9-16.9) H 09/11/17 02:58 Hct 51.3 % (37.5-50.1) H 09/11/17 02:58 Total Bilirubin 0.6 mg/dL (0.3-1.0) 09/11/17 02:58 AST 14 Units/L (13-39) 09/11/17 02:58 ALT 21 Units/L (7-52) 09/11/17 02:58 Amylase 28 Units/L (29-103) L 09/11/17 02:58 Lipase < 3 Units/L (11-82) L 09/11/17 02:58 - Attending Attestation I examined this patient and my medical decision-making was reviewed with the Resident Physician. I agree with the documented findings, disposition and treatment plan as described except to the extent set forth below.
[2017-09-11 12:00] LABS: Magnesium 2.2 mg/dL (1.6-2.6)
[2017-09-11] MEDS ORDERED: *HR* Midazolam HCl 5 MG/5 ML VIAL IVP ONE (12:00)
[2017-09-11] MEDS ORDERED: *HR* FentaNYL (PF) 100 MCG/2 ML VIAL ONE (12:01)
[2017-09-11] MEDS: *HR* Heparin 5,000 UNIT/ML VIAL SQ SCH ×2 (14:41→21:16)
[2017-09-11] MEDS ORDERED: traZODone 50 MG TABLET PO SCH (21:00)
[2017-09-11 21:55] LABS: Hemoglobin A1C 5.8 %
[2017-09-11] MEDS: *HR* OxyCODONE/APAP 5/325 TABLET PO PRN (23:43)
[2017-09-12] MEDS: *HR* OxyCODONE/APAP 5/325 TABLET PO PRN (05:29)
[2017-09-12] MEDS: *HR* Heparin 5,000 UNIT/ML VIAL SQ SCH ×2 (05:30→13:00)
[2017-09-12 06:14] LABS: Hematocrit 44.5 % (37.5-50.1); Mean Corpuscular HGB Conc 34.4 g/dL (31.6-35.5); Mean Corpuscular Hemoglobin 30.5 pg (28.0-33.3); Mean Corpuscular Volume 88.8 fL (83.0-100.0); Mean Platelet Volume 9.3 fL (9.4-12.4); Platelet Count 311 K/mcL (140-400); Red Blood Count 5.01 M/mcL (4.19-5.50); Red Cell Distribution Width 14.3 % (11.5-14.5)
[2017-09-12 06:26] LABS: Hemoglobin 15.3 g/dL (12.9-16.9)
[2017-09-12 06:33] LABS: BUN/Creatinine Ratio 14 (6-26); Blood Urea Nitrogen 16 mg/dL (8-23); Calcium 8.6 mg/dL (8.6-10.3); Carbon Dioxide 23 mEq/L (23-29); Chloride 105 mEq/L (98-107); Glucose 113 mg/dL (70-105); Osmolality,Calculated 280 (280-300); Potassium 3.7 mEq/L (3.5-5.1); Sodium 134 mEq/L (136-145); eGFR For African Americans > 60 (> 60); eGFR For Non-African Americans > 60 (> 60)
[2017-09-12] MEDS: Gabapentin 300 MG CAPSULE PO SCH ×3 (09:03→16:37)
[2017-09-12] MEDS: Aspirin Enteric Coated 81 MG Tablet PO SCH (09:03)
[2017-09-12] MEDS: ARIPiprazole 2 MG TABLET PO SCH (09:03)
[2017-09-12] MEDS: Pantoprazole 40 MG VIAL IVP SCH (09:03)
[2017-09-12] MEDS ORDERED: Sennosides/Docusate Sodium TABLET PO SCH (10:30)
[2017-09-12 15:49] VITALS: BP 136/82
--- NOTE | 2017-09-12 16:07 | Discharge Summary ---
Date of Encounter: 09/12/17 Time of Encounter: 16:01 - Discharge Diagnosis (1) Abdominal pain Priority: Primary Status: Resolved Comments: with reported severe abdominal pain and associated nausea/vomiting that started 1 day prior to presentation. ABD CT with large amt stool in colon, otherwise nonacute, abdominal exam benign. 09/11/2017 EGD relatively unremarkable. Suspect abdominal pain secondary to constipation. Qualifiers: Abdominal location: generalized Qualified Code(s): R10.84 - Generalized abdominal pain (2) Hyponatremia Priority: Primary Status: Resolved Comments: Na 129; neurologically intact. Likely secondary to poor PO intake and emesis prior to presentation. Sodium improved with IV fluids. Na 134 at discharge (3) Hypokalemia Priority: Primary Status: Resolved Comments: K 3.3 on arrival. Normalized with replacement. (4) Chronic back pain Priority: Secondary Status: Chronic Comments: per hx. Cont home gabapentin. Qualifiers: Back pain location: low back pain Back pain laterality: bilateral Sciatica presence: without sciatica Qualified Code(s): M54.5 - Low back pain; G89.29 - Other chronic pain; G89.29 - Other chronic pain (5) Hypertension Priority: Secondary Status: Chronic Comments: per patient reported hx but not on BP medications at home. BP uncontrolled in ED with SBPs in 190s. Possibly due to ABD pain. BP improved to normotemsive at time of discharge. Recommend follow-up with PCP within one week for BP recheck Qualifiers: Hypertension type: essential hypertension Qualified Code(s): I10 - Essential (primary) hypertension (6) Depression Priority: Secondary Status: Chronic Comments: per hx. Patient has had multiple presentations to the ED in the last 48 hours. States he lives alone and has little family. Per chart review, patient reported SI on previous recent presentation. Currently denies thoughts of harming or killing self. Cont home antidepressants Qualifiers: Depression Type: major depressive disorder Major depression recurrence: recurrent Active/Remission status: currently active Major depression episode severity: moderate Qualified Code(s): F33.1 - Major depressive disorder, recurrent, moderate (7) Diabetes Priority: Secondary Status: Chronic Comments: per hx. continue home diabetes medication regimen. Qualifiers: Diabetes mellitus type: type 2 Diabetes mellitus complication status: with neurologic complications Diabetes mellitus complication detail: with polyneuropathy Diabetes mellitus director long term care insulin use: without director long term care use Qualified Code(s): E11.42 - Type 2 diabetes mellitus with diabetic polyneuropathy - Discharge Medications Prescriptions: Sennosides/Docusate Sodium [Senna Plus] 2 each PO BID #60 tablet Home Medications: Albuterol Sulfate [Proventil Hfa] 2 puff IH QID PRN 05/13/15 [History] Polyethylene Glycol 3350 [MiraLAX] 17 gm PO DAILY PRN 05/13/15 [History] Tizanidine [Zanaflex] 4 mg PO TID PRN 05/13/15 [History] Ascorbate Calcium [Vitamin C] 500 mg PO BID 07/10/17 [History] Aspirin Enteric Coated [Aspirin EC] 81 mg PO DAILY 07/10/17 [History] Ferrous Gluconate 324 mg PO BID 07/10/17 [History] Metformin HCl [Glucophage] 1,000 mg PO BID 07/10/17 [History] Potassium Chloride [Klor-Con 10] 10 meq PO BID 07/10/17 [History] Simvastatin [Zocor] 20 mg PO HS 07/10/17 [History] Quetiapine Fumarate [Seroquel] 50 mg PO HS #60 tablet 07/16/17 [Rx] predniSONE [PredniSONE] 60 mg PO DAILY #15 tablet 09/09/17 [Rx] Lansoprazole [Prevacid] 15 mg PO BIDAC #60 capsule. 09/10/17 [Rx] ARIPiprazole [Abilify] 2 mg PO DAILY 09/11/17 [History] Duloxetine HCl [Cymbalta] 60 mg PO BID 09/11/17 [History] Gabapentin [Neurontin] 300 mg PO QID 09/11/17 [History] Ondansetron [Zofran] 8 mg PO Q8HR PRN 09/11/17 [History] traZODone [TraZODone] 50 mg PO HS 09/11/17 [History] Sennosides/Docusate Sodium [Senna Plus] 2 each PO BID #60 tablet 09/12/17 [Rx] Allergies/Adverse Reactions: 3 Allergy/AdvReac Type Severity Reaction Status Date / Time No Known Allergies Allergy Verified 09/10/17 22:22 Date of admission: 09/11/17 12:49 Primary care physician: Praneeth Ruiz MD Discharging clinician: Elen Meredith Anticipated date of discharge: 09/12/17 - Patient Status Disposition: Home, Self-Care Condition: Good Overall status at discharge: patient is back to baseline - Discharge Instructions Instructions: Constipation (DC), Laxative, Stimulant (By mouth), Suicide Prevention for Adults (DC), Depression (DC) Follow Up With: Praneeth Ruiz MD [Primary Care Provider] - 09/19/17 3:00 pm - Diet and Activity Activity: increase activity as tolerated Diet: advance to your usual diet Interval History: Seen and examined at bedside; uneventful night. Diet advanced to regular and tolerating with no increase in abdominal pain. No nausea or vomiting. Reports mild abdominal pain but overall improved. His acute go home if able to tolerate dinner. Encouraged adequate water intake and ambulation. He lives alone and feels comfortable returning to home environment; declines PT/OT evaluation. Hospital course: See assessment and plan for hospital course - Time Spent with Patient Total time spent providing and/or coordinating discharge services: - Constitutional Vitals: Temp Pulse Resp BP Pulse Ox 97.4 F L 84 16 136/82 96 09/12/17 15:46 09/12/17 15:46 09/12/17 15:46 09/12/17 15:46 09/12/17 15:46 General appearance: Present: A&O X 3, no acute distress - Head Head exam: Present: atraumatic, normocephalic - Eye Eye exam: Present: PERRL, conjuntiva pink, sclera anicteric Pupils: Present: PERRL - Neck Neck exam general surgery: Present: supple, trachea midline. Absent: lymphadenopathy - Respiratory Respiratory exam: Present: CTAB. Absent: accessory muscle use, rales, rhonchi, wheezes - Cardiovascular Cardiovascular exam: Present: RRR, +S1, +S2. Absent: diastolic murmur, gallop, rubs, systolic murmur - GI/Abdominal GI/Abdominal exam: Present: normal bowel sounds, soft, no peritoneal signs. Absent: distended, tenderness - Extremities Exam Extremities exam: Present: warm, radial pulses palpable and symmetrical. Absent : calf tenderness, cyanotic, pedal edema - Neurological Exam Neurological exam: Present: CN II-XII intact, oriented X3, no focal deficits. Absent: pronater drift, facial droop, speech deficit - Skin Skin exam: Present: dry, intact
--- NOTE | 2017-09-12 19:31 | Electrocardiograph Report ---
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
== END 2017-09-12 18:44 | disposition home or self-care (01) | DRG 392 ==
LOC: 3BNU 22:16 → EMEROO 22:16 → 3BNU 09-11 05:25
PROVIDERS: ADMIT Registered Nurse; ATTEND Registered Nurse
PROC: ENDOEBX (2017-09-11 12:30)

== ENCOUNTER 2018-01-07 16:12 | Inpatient (IN) ==
[2018-01-07] MEDS ORDERED: Pantoprazole 40 MG VIAL IVP ONE (16:26)
--- NOTE | 2018-01-07 16:26 | Emergency Department Note ---
Disposition Clinical Impression: Rectal bleeding Diverticulosis Qualifiers: Diverticulosis site: diverticulosis of large intestine Diverticulosis bleeding : diverticulosis with bleeding Qualified Code(s): K57.31 - Diverticulosis of large intestine without perforation or abscess with bleeding Chest pain Qualifiers: Chest pain type: unspecified Qualified Code(s): R07.9 - Chest pain, unspecified Disposition: Admitted As Inpatient Condition: Fair Referrals: Praneeth Ruiz MD [Primary Care Provider] - Forms: ED Satisfaction Letter Time of Disposition: 18:50 General Adult HPI - General Chief complaint: ED Chest Pain Stated complaint: CP & TAI. Rectal Bleeding Time Seen by Provider: 01/07/18 16:15 Source: patient Mode of arrival: ambulatory Limitations: no limitations Nursing Notes Reviewed: Yes Vital Signs Reviewed: Yes - History of Present Illness HPI Narrative: 67-year-old male who comes in complaining of chest pain and also rectal bleeding. Patient had an episode of rectal bleeding in the past found to have some diverticulosis. The patient has been complaining of chest pain for the last couple of days. 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 Location: chest Radiation: non-radiation Pain Severity: severe Pain Scale: 10 Quality: aching, dull Consistency: constant Improves with: nothing Worsens with: nothing Associated symptoms: Reports: other (Blood in the stool) Treatments Prior to Arrival: none - Related Data Home Medications Medication Instructions Recorded Confirmed Albuterol Sulfate [Proventil Hfa] 2 puff IH QID PRN 05/13/15 09/11/17 Polyethylene Glycol 3350 [MiraLAX] 17 gm PO DAILY PRN 05/13/15 09/11/17 Tizanidine [Zanaflex] 4 mg PO TID PRN 05/13/15 09/11/17 Ascorbate Calcium [Vitamin C] 500 mg PO BID 07/10/17 09/11/17 Aspirin Enteric Coated [Aspirin EC] 81 mg PO DAILY 07/10/17 09/11/17 Ferrous Gluconate 324 mg PO BID 07/10/17 09/11/17 Metformin HCl [Glucophage] 1,000 mg PO BID 07/10/17 09/11/17 Potassium Chloride [Klor-Con 10] 10 meq PO BID 07/10/17 09/11/17 Simvastatin [Zocor] 20 mg PO HS 07/10/17 09/11/17 ARIPiprazole [Abilify] 2 mg PO DAILY 09/11/17 09/11/17 Duloxetine HCl [Cymbalta] 60 mg PO BID 09/11/17 09/11/17 Gabapentin [Neurontin] 300 mg PO QID 09/11/17 09/11/17 Ondansetron [Zofran] 8 mg PO Q8HR PRN 09/11/17 09/11/17 traZODone [TraZODone] 50 mg PO HS 09/11/17 09/11/17 Previous Rx's Medication Instructions Recorded Quetiapine Fumarate [Seroquel] 50 mg PO HS #60 tablet 07/16/17 predniSONE [PredniSONE] 60 mg PO DAILY #15 tablet 09/09/17 Lansoprazole [Prevacid] 15 mg PO BIDAC #60 capsule. 09/10/17 Sennosides/Docusate Sodium [Senna 2 each PO BID #60 tablet 09/12/17 Plus] Allergies Allergy/AdvReac Type Severity Reaction Status Date / Time No Known Allergies Allergy Verified 09/10/17 22:22 Constitutional: Denies: fever, chills, weakness, weight change Eyes: Denies: eye pain, eye discharge, vision change ENT ED: Denies: ear pain, throat pain, dental pain, hearing loss, epistaxis, congestion, dysphagia Cardiovascular: Reports: chest pain. Denies: palpitations, dyspnea on exertion , edema, syncope Respiratory: Denies: cough, dyspnea, wheezes, hemoptysis, stridor Gastrointestinal: Reports: hematochezia. Denies: nausea, vomiting, diarrhea, constipation, hematemesis, melena Genitourinary: Denies: urgency, dysuria, frequency, hematuria Musculoskeletal: Denies: back pain, neck pain, arthralgia, myalgia Integumentary: Denies: rash, abrasion, lesions Neurological: Denies: headache, weakness, numbness, paresthesias, confusion, abnormal gait, vertigo Psychiatric: Denies: anxiety, depression, suicidal thoughts, homicidal thoughts , auditory hallucinations, visual hallucinations Endocrine: Denies: fatigue Hematological/Lymphatic: Denies: easy bleeding, easy bruising Allergic/Immunologic: Denies: facial swelling, urticaria Past Medical History - Past Medical History Medical history: Reports: COPD, diabetes, GERD, GI bleed, hyperlipidemia, hypertension, myocardial infarction, other Surgical history: Reports: no surgical history Psychiatric history: Reports: anxiety - Social History Smoking Status: Current every day smoker Smokeless Tobacco Status: No Alcohol use: Reports: none Drug use: Reports: none Physical Exam - General General appearance: alert - Head Head exam: atraumatic, normocephalic, normal inspection - Eye Eye exam: Present: normal appearance, PERRL, EOMI - ENT ENT exam: normal exam, normal oropharynx, mucous membranes moist - Neck Neck exam: Present: normal inspection, full ROM, trachea midline - Chest Chest inspection: Present: normal inspection, symmetric chest wall rise - Respiratory Respiratory exam: Present: normal lung sounds bilaterally - Cardiovascular Cardiovascular exam: Present: regular rate, normal rhythm, normal heart sounds - Abdominal Exam Abdominal exam: Present: soft, Non-Tender. Absent: guarding - Extremities Exam Extremities exam: Present: normal inspection, full ROM. Absent: tenderness, pedal edema - Expanded Lower Extremity Exam Neurovascular/Tendon exam: Absent: motor deficit, sensory deficit, tendon deficit Gait: observed and normal - Back Exam Back exam: Present: normal inspection, full ROM. Absent: tenderness - Neurological Exam Neurological exam: Present: alert, oriented X3 - Psychiatric Psychiatric exam: Present: normal affect, normal mood - Skin Skin exam: Present: warm, dry, intact, normal color Course - Reevaluation(s) Reevaluation #1: 67-year-old states he has had rectal bleeding since yesterday. Also complains of some chest pain. Workup here EKGs were negative for acute ischemic change initial troponin was negative his initial hemoglobin is 16.9. CT scan does show diverticulosis no acute diverticulitis. Time: 18:49 - Consultations Consultation #1: Discussed with , admit. Time: 18:49 Vital Signs Temperature 98.2 F 01/07/18 16:13 Pulse Rate 69 01/07/18 16:13 Respiratory Rate 18 01/07/18 16:13 Blood Pressure 120/72 01/07/18 16:13 O2 Sat by Pulse Oximetry 96 01/07/18 16:13 Temperature 98.2 F 01/07/18 16:19 Pulse Rate 102 01/07/18 17:20 Respiratory Rate 16 01/07/18 17:20 Blood Pressure 139/104 01/07/18 17:20 O2 Sat by Pulse Oximetry 98 01/07/18 17:20 Oxygen Delivery Oxygen Delivery Nasal Cannula Medical Decision Making - Lab Data Lab results reviewed: Yes I reviewed the patient's lab results. Result diagrams: 01/07/18 16:33 01/07/18 16:33 Lab Results 01/07/18 01/07/18 01/07/18 Range/Units 16:33 16:33 16:33 WBC 13.5 H (4.3-11.1) K/mcL RBC 5.58 H (4.19-5.50) M/mcL Hgb 16.9 (12.9-16.9) g/dL Hct 48.0 (37.5-50.1) % MCV 86.0 (83.0-100.0) fL MCH 30.3 (28.0-33.3) pg MCHC 35.2 (31.6-35.5) g/dL RDW 12.6 (11.5-14.5) % Plt Count 385 (140-400) K/mcL MPV 9.4 (9.4-12.4) fL Immature Gran % 0.4 (0-4) % Seg Neutrophils % 90.4 % Lymphocytes % 7.7 % Monocytes % 1.2 % Eosinophils % 0.1 % Basophils % 0.2 % Neutrophils # 12.2 H (1.6-8.9) K/mcL Lymphocytes # 1.0 (0.6-4.6) K/mcL Monocytes # 0.2 (0.0-1.3) K/mcL Eosinophils # 0.0 (0.0-0.6) K/mcL Basophils # 0.0 (0.0-0.2) K/mcL PT (9.4-12.1) Seconds INR APTT (26.0-36.0) Seconds Sodium 136 (136-145) mEq/L Potassium 3.6 (3.5-5.1) mEq/L Chloride 98 (98-107) mEq/L Carbon Dioxide 27 (23-29) mEq/L BUN 30 H (8-23) mg/dL Creatinine 1.47 H (0.70-1.30) mg/dL Est GFR ( Amer) 58 L (> 60) Est GFR (Non-Af Amer) 48 L (> 60) BUN/Creatinine Ratio 20 (6-26) Glucose 188 H (70-105) mg/dL Calculated Osmolality 293 (280-300) Calcium 9.7 (8.6-10.3) mg/dL Troponin I < 0.03 (< 0.04) ng/mL Specimen Rejected Blood Type A POSITIVE Antibody Screen NEGATIVE 01/07/18 01/07/18 Range/Units 16:33 17:36 WBC (4.3-11.1) K/mcL RBC (4.19-5.50) M/mcL Hgb (12.9-16.9) g/dL Hct (37.5-50.1) % MCV (83.0-100.0) fL MCH (28.0-33.3) pg MCHC (31.6-35.5) g/dL RDW (11.5-14.5) % Plt Count (140-400) K/mcL MPV (9.4-12.4) fL Immature Gran % (0-4) % Seg Neutrophils % % Lymphocytes % % Monocytes % % Eosinophils % % Basophils % % Neutrophils # (1.6-8.9) K/mcL Lymphocytes # (0.6-4.6) K/mcL Monocytes # (0.0-1.3) K/mcL Eosinophils # (0.0-0.6) K/mcL Basophils # (0.0-0.2) K/mcL PT 11.5 (9.4-12.1) Seconds INR 1.1 APTT 19.2 L (26.0-36.0) Seconds Sodium (136-145) mEq/L Potassium (3.5-5.1) mEq/L Chloride (98-107) mEq/L Carbon Dioxide (23-29) mEq/L BUN (8-23) mg/dL Creatinine (0.70-1.30) mg/dL Est GFR ( Amer) (> 60) Est GFR (Non-Af Amer) (> 60) BUN/Creatinine Ratio (6-26) Glucose (70-105) mg/dL Calculated Osmolality (280-300) Calcium (8.6-10.3) mg/dL Troponin I (< 0.04) ng/mL Specimen Rejected Volume Blood Type Antibody Screen - Radiology Data Radiology results reviewed: Yes I reviewed the patient's radiology results. Chest X-Ray 01/07/18 16:20 IMPRESSION: No acute process. D/ / Silvina Rob MD / Silvina Rob MD Interpreting Provider: Silvina Rob MD Abdomen/Pelvis CT 01/07/18 16:21 IMPRESSION: Diverticulosis coli without evidence of diverticulitis. Hepatic steatosis and cholelithiasis. D/ / Isidro Polanco MD / Isidro Polanco MD Interpreting Provider: Isidro Polanco MD - EKG Data EKG #1 EKG attestation: Yes I reviewed and interpreted this EKG. EKG shows normal: sinus rhythm Rate: tachycardia Rhythm: NSR Jackson/QRS: normal Interpretation: no acute changes
[2018-01-07] MEDS ORDERED: Ondansetron 4 MG/2 ML VIAL IVP ONE ×3 (16:48→19:36)
[2018-01-07 16:57] LABS: Basophils % 0.2 %; Eosinophils % 0.1 %; Hemoglobin 16.9 g/dL (12.9-16.9); Immature Granulocytes % 0.4 % (0-4); Lymphocytes % 7.7 %; Mean Corpuscular HGB Conc 35.2 g/dL (31.6-35.5); Mean Corpuscular Hemoglobin 30.3 pg (28.0-33.3); Mean Platelet Volume 9.4 fL (9.4-12.4); Monocytes # 0.2 K/mcL (0.0-1.3); Monocytes % 1.2 %; Neutrophils # 12.2 K/mcL (1.6-8.9); Platelet Count 385 K/mcL (140-400); Red Blood Count 5.58 M/mcL (4.19-5.50); Red Cell Distribution Width 12.6 % (11.5-14.5); Segmented Neutrophils % 90.4 %
[2018-01-07 17:31] LABS: BUN/Creatinine Ratio 20 (6-26); Blood Urea Nitrogen 30 mg/dL (8-23); Calcium 9.7 mg/dL (8.6-10.3); Carbon Dioxide 27 mEq/L (23-29); Chloride 98 mEq/L (98-107); Glucose 188 mg/dL (70-105); Osmolality,Calculated 293 (280-300); Potassium 3.6 mEq/L (3.5-5.1); Sodium 136 mEq/L (136-145); Troponin I < 0.03 ng/mL (< 0.04); eGFR For African Americans 58 (> 60); eGFR For Non-African Americans 48 (> 60)
[2018-01-07] MEDS ORDERED: *HR* HYDROmorphone (PF) 1 MG/ML SYRINGE IVP ONE (17:48)
[2018-01-07 18:08] LABS: INR 1.1; Prothrombin Time 11.5 Seconds (9.4-12.1)
[2018-01-07 18:15] LABS: Activated Partial Thrombo Time 19.2 Seconds (26.0-36.0)
[2018-01-07] MEDS ORDERED: Naloxone 0.4 MG/ML INJ IVP PRN (20:16)
[2018-01-07] MEDS ORDERED: 0.9 % Sodium Chloride 1,000 ML IVC SCH (20:30)
--- NOTE | 2018-01-07 20:30 | Internal Med History&Physical ---
Addendum entered and electronically signed by Mattie Kurtz 01/07/18 21:08: JASON - Likely prerenal, continue IV fluid, repeat RFP in the morning. Original Note: <Mattie Kurtz - Last Filed: 01/07/18 20:26> Date of Encounter: 01/07/18 Time of Encounter: 20:26 Internal Medicine - H&P: HPI Admitted From: Home Plans for Post Hospital Care: Home History of present illness: Mr. Ro is a 67 year old male past medical history significant for diverticulosis, chronic back pain, and hypertension presented with acute onset of her chest pain. He also reported a recent bloody stool. He describes the pain was across the chest, mainly located on the right side of the chest, constant, relieved by pain medicine, and exacerbated by exertion. He did not try nitroglycerin. He denies recent fever, chills, night sweats. He has no shortness of breath, productive cough, or palpitation. At the ED his vital signs were stable, labs revealed elevated BUN and creatinine. Troponin was negative, EKG no ST-T change, chest x-ray no acute changes. He will be admitted as observation for further management. Past Med Surg Social Fam HX - Past Medical History Medical history: COPD, diabetes, GERD, GI bleed, hyperlipidemia, hypertension, myocardial infarction, other Psychiatric history: anxiety - Past Surgical History Surgical History: no surgical history - Social History Smoking Status: Current every day smoker Smokeless Tobacco Status: No Alcohol use: none Drug use: none - Family History Mother Living Status: Hx Family Cardiac Disorders: Yes (HTN) Hx Family Respiratory Disorders: No Hx Family Cancer: Yes (Lung) Hx Family GI Disorders: No Hx Family Endocrine Disorder: No Hx Family Neuromuscular Disorders: No Hx Family Neurologic Disorders: Yes (CVA) Hx Family HEENT Disorders: No Hx Family Autoimmune Disorders: No Internal Medicine - H&P: Meds Albuterol Sulfate [Proventil Hfa] 2 puff IH QID PRN 05/13/15 [History] Polyethylene Glycol 3350 [MiraLAX] 17 gm PO DAILY PRN 05/13/15 [History] Tizanidine [Zanaflex] 4 mg PO TID PRN 05/13/15 [History] Ascorbate Calcium [Vitamin C] 500 mg PO BID 07/10/17 [History] Aspirin Enteric Coated [Aspirin EC] 81 mg PO DAILY 07/10/17 [History] Metformin HCl [Glucophage] 1,000 mg PO BID 07/10/17 [History] Potassium Chloride [Klor-Con 10] 10 meq PO BID 07/10/17 [History] Quetiapine Fumarate [Seroquel] 50 mg PO HS #60 tablet 07/16/17 [Rx] ARIPiprazole [Abilify] 2 mg PO DAILY 09/11/17 [History] Duloxetine HCl [Cymbalta] 60 mg PO BID 09/11/17 [History] Gabapentin [Neurontin] 300 mg PO QID 09/11/17 [History] traZODone [TraZODone] 50 mg PO HS 09/11/17 [History] 3 Allergy/AdvReac Type Severity Reaction Status Date / Time No Known Allergies Allergy Verified 01/07/18 19:10 All Systems PM: A 10-system review of systems was performed and is negative for pertinent findings except as documented above in the HPI. Review of systems: REVIEW OF SYSTEMS: CONSTITUTIONAL: No weight loss, fever, chills, weakness or fatigue. HEENT: Eyes: No visual loss, blurred vision, double vision or yellow sclerae. Ears, Nose, Throat: No hearing loss, sneezing, congestion, runny nose or sore throat. SKIN: No rash or itching. CARDIOVASCULAR: see HPI. RESPIRATORY: No shortness of breath, cough or sputum. GASTROINTESTINAL: No anorexia, nausea, vomiting or diarrhea. No abdominal pain or blood. GENITOURINARY: No dysuria, urgency, or frequency. NEUROLOGICAL: No headache, dizziness, syncope, paralysis, ataxia, numbness or tingling in the extremities. No change in bowel or bladder control. MUSCULOSKELETAL: No muscle, back pain, joint pain or stiffness. HEMATOLOGIC: No anemia, bleeding or bruising. LYMPHATICS: No enlarged nodes. No history of splenectomy. PSYCHIATRIC: No history of depression or anxiety. ENDOCRINOLOGIC: No reports of sweating, cold or heat intolerance. No polyuria or polydipsia. - Constitutional Vitals: Temp Pulse Resp BP Pulse Ox 98.2 F 115 18 101/68 98 01/07/18 16:19 01/07/18 20:16 01/07/18 20:16 01/07/18 20:16 01/07/18 20:16 General appearance: Present: A&O X 3 Exam: PHYSICAL EXAMINATION: GENERAL APPEARANCE: The patient is alert, oriented and in no acute distress. HEENT: Head is normocephalic. The sinuses are nontender. Pupils are equal and reactive. The nares are patent. Oropharynx clear without lesions. NECK: Supple without lymphadenopathy. HEART: Regular rate and rhythm. LUNGS: No crackles or wheezes are heard. ABDOMEN: Soft, nontender, nondistended with good bowel sounds heard. Inguinal area is normal. EXTREMITIES: Without cyanosis, clubbing or edema. NEUROLOGICAL: Gross nonfocal. SKIN: Warm and dry without any rash. Internal Med - H&P Results - Labs CBC & Chem 7: 01/07/18 16:33 01/07/18 16:33 Labs: Short CBC 01/07/18 Range/Units 16:33 WBC 13.5 H (4.3-11.1) K/mcL Hgb 16.9 (12.9-16.9) g/dL Hct 48.0 (37.5-50.1) % Plt Count 385 (140-400) K/mcL Neutrophils # 12.2 H (1.6-8.9) K/mcL BMP 01/07/18 16:33 Sodium 136 Potassium 3.6 Chloride 98 Carbon Dioxide 27 BUN 30 H Creatinine 1.47 H Glucose 188 H Calcium 9.7 Cardiac Enzymes 01/07/18 Range/Units 16:33 Troponin I < 0.03 (< 0.04) ng/mL - Impressions ITS Impressions Chest X-Ray 01/07/18 16:20 IMPRESSION: No acute process. D/ / Silvina Rob MD / Silvina Rob MD Interpreting Provider: Silvina Rob MD Abdomen/Pelvis CT 01/07/18 16:21 IMPRESSION: Diverticulosis coli without evidence of diverticulitis. Hepatic steatosis and cholelithiasis. D/ / Isidro Polanco MD / Isidro Polanco MD Interpreting Provider: Isidro Polanco MD - Assessment and plan (1) Chest pain Current Visit: Yes Status: Acute Assessment and plan: 67 y male with past medical history of hypertension, diabetes, and diverticulosis presented with acute onset of chest pain. Patient describes the pain was across the chest, located on the right side, exacerbated by exertion, and relieved by pain medicine. He did not try Nitro. - atypical chest pain per patient prescription, troponin negative 1, EKG no acute ST-T change. - Due to the possible GI bleeding, aspirin was not given at ED. - We will order stress test in the morning, echocardiogram also ordered. - Consult cardiology if indicated. Qualifiers: Chest pain type: unspecified Qualified Code(s): R07.9 - Chest pain, unspecified (2) Rectal bleeding Current Visit: Yes Status: Acute Assessment and plan: - Recent EGD about 2 months ago did not reveal any abnormalities. Patient has history of hemorrhoids and diverticulosis. CT abdomen redemonstrated diverticulosis without diverticulitis. Unknown time of last colonoscopy. - We will check occult blood. - Hemoglobin stable. We will continue cycle H/H. - Consult GI if indicated. (3) Hypertension Current Visit: No Status: Chronic Assessment and plan: - BP well controlled, continue home medication. Qualifiers: Hypertension type: essential hypertension Qualified Code(s): I10 - Essential (primary) hypertension (4) Anxiety Current Visit: No Status: Acute Assessment and plan: - Mood stable, continue home medication. (5) Diabetic neuropathy Current Visit: No Status: Acute Assessment and plan: - Continue home medication. Qualifiers: Diabetes mellitus type: type 2 Diabetes mellitus complication detail: diabetic polyneuropathy Qualified Code(s): E11.42 - Type 2 diabetes mellitus with diabetic polyneuropathy - Time Spent With Patient Total time spent is greater than 50% in coordination of care (as documented) at patient's floor/unit and/or counseling patient: Greater than 35 minutes <Renaldo Garcia - Last Filed: 01/07/18 23:45> Date of Encounter: 01/07/18 Internal Medicine - H&P: HPI History of present illness: Mr. Ro is a 67 year old male All Systems PM: A 10-system review of systems was performed and is negative for pertinent findings except as documented above in the HPI. - Constitutional Vitals: Temp Pulse Resp BP Pulse Ox 97.6 F 98 17 89/70 97 01/07/18 21:35 01/07/18 21:35 01/07/18 21:35 01/07/18 21:35 01/07/18 21:35 Internal Med - H&P Results - Labs CBC & Chem 7: 01/07/18 16:33 01/07/18 16:33 - Attending Attestation I examined this patient and my medical decision-making was reviewed with the Resident Physician. I agree with the documented findings, disposition and treatment plan as described except to the extent set forth below. - Time Spent With Patient Total time spent is greater than 50% in coordination of care (as documented) at patient's floor/unit and/or counseling patient:
[2018-01-07] MEDS ORDERED: Pantoprazole 40 MG VIAL IVP SCH (21:00)
[2018-01-07] MEDS: traZODone 50 MG TABLET PO SCH (22:07)
[2018-01-07] MEDS: Gabapentin 300 MG CAPSULE PO SCH (22:07)
[2018-01-07] MEDS: Ascorbic Acid 500 MG TABLET PO SCH (22:07)
[2018-01-07] MEDS: tiZANidine 4 MG TABLET PO PRN (22:43)
[2018-01-08] MEDS ORDERED: 0.9 % Sodium Chloride 1,000 ML IVC ONE (00:28)
[2018-01-08] MEDS: 0.9 % Sodium Chloride 1,000 ML IVC SCH ×5 (01:20→17:28)
[2018-01-08 03:24] LABS: Basophils % 0.2 %; Hematocrit 37.2 % (37.5-50.1); Hemoglobin 12.9 g/dL (12.9-16.9); Immature Granulocytes % 0.3 % (0-4); Lymphocytes # 0.4 K/mcL (0.6-4.6); Lymphocytes % 3.4 %; Mean Corpuscular HGB Conc 34.7 g/dL (31.6-35.5); Mean Corpuscular Hemoglobin 30.3 pg (28.0-33.3); Mean Corpuscular Volume 87.3 fL (83.0-100.0); Mean Platelet Volume 9.7 fL (9.4-12.4); Monocytes # 0.2 K/mcL (0.0-1.3); Monocytes % 1.9 %; Neutrophils # 10.4 K/mcL (1.6-8.9); Platelet Count 258 K/mcL (140-400); Red Blood Count 4.26 M/mcL (4.19-5.50); Segmented Neutrophils % 94.2 %
[2018-01-08 03:41] LABS: BUN/Creatinine Ratio 21 (6-26); Blood Urea Nitrogen 30 mg/dL (8-23); Calcium 7.8 mg/dL (8.6-10.3); Carbon Dioxide 22 mEq/L (23-29); Chloride 108 mEq/L (98-107); Glucose 142 mg/dL (70-105); Osmolality,Calculated 293 (280-300); Potassium 3.3 mEq/L (3.5-5.1); Sodium 137 mEq/L (136-145); eGFR For African Americans > 60 (> 60); eGFR For Non-African Americans 51 (> 60)
[2018-01-08] MEDS: Pantoprazole 40 MG VIAL IVP SCH ×2 (05:40→17:28)
[2018-01-08] MEDS: ARIPiprazole 2 MG TABLET PO SCH (09:40)
[2018-01-08] MEDS: Gabapentin 300 MG CAPSULE PO SCH ×4 (09:41→20:48)
[2018-01-08] MEDS: Ascorbic Acid 500 MG TABLET PO SCH ×2 (09:41→20:48)
[2018-01-08] MEDS: Acetaminophen 325 MG TABLET PO PRN (09:51)
[2018-01-08] MEDS ORDERED: *HR* Dextrose 50 % in Water (Syg) 50 ML SYRINGE IVP PRN (12:24)
[2018-01-08] MEDS ORDERED: Dextrose Gel 15 GM/37.5 ML TUBE PO PRN ×2 (12:24)
[2018-01-08] MEDS ORDERED: D5% in Water 1,000 ML IVC PRN (12:24)
--- NOTE | 2018-01-08 13:17 | Gastroenterology Consult Note ---
<Lali Foley - Last Filed: 01/08/18 13:20> Date of Encounter: 01/08/18 Time of Encounter: 10:40 - Assessment and plan (1) Chest pain Current Visit: Yes Status: Acute Assessment and plan: Pt presents with chest pain, cardiac enzymes and EKG were normal. Hhe also reports nausea and vomiting x several episodes on the day of admission. Will plan for EGD tomorrow to evaluate for esophagitis or other gastrointestinal causes of chest pain, nausea and vomiting. Qualifiers: Chest pain type: unspecified Qualified Code(s): R07.9 - Chest pain, unspecified (2) Rectal bleeding Current Visit: Yes Status: Acute Assessment and plan: Pt is also reporting some rectal bleeding and hgb has dropped to 12 from a baseline of 16. Will plan for colonoscopy tomorrow to evaluate for source of rectal bleeding. - Time Spent With Patient Total time spent is greater than 50% in coordination of care (as documented) at patient's floor/unit and/or counseling patient: GI History of Present Illness - Data of Consult Patient: known to practice within the last 3 years Consult date: 01/08/18 Requesting Physician: Ronald Almeida MD - Consult Narrative Reason for consult: chest pain, rectal bleeding History of present illness: Mr. Ro is a 67 year old male past medical history significant for diverticulosis, chronic back pain, and hypertension presented with acute onset of her chest pain. He also reported episodes of bright red rectal bleeding over the past several weeks. He described the pain was across the chest, mainly located on the right side of the chest, constant, relieved by pain medicine, and exacerbated by exertion. He did not try nitroglycerin. He denies recent fever, chills, night sweats. He has no shortness of breath, productive cough, or palpitation. He also states he had nausea and vomiting "at least 20 times" on the day of admission. At the ED his vital signs were stable, labs revealed elevated BUN and creatinine. Troponin was negative, EKG no ST-T change, chest x -ray no acute changes. Hgb was 16.9 on admission and dropped to 12.9. He denies any abdominal pain, chest pain, nausea or vomiting at this time. EGD: 09/01 normal esophagus, erythematous mucosa in antrum , normal duodenum, gastric xanthoma Colon: 04/28 2 mm rectal polyp hyperplastic NsAIDS: asa 81 mg (doesn't take every day) anticoagulation: denies Past Med Surg Social Fam HX - Past Medical History Medical history: COPD, diabetes, GERD, GI bleed, hyperlipidemia, hypertension, myocardial infarction, other Psychiatric history: anxiety - Past Surgical History Surgical History: no surgical history - Social History Smoking Status: Current every day smoker Smokeless Tobacco Status: No Alcohol use: none Drug use: none - Family History Mother Living Status: Hx Family Cardiac Disorders: Yes (HTN) Hx Family Respiratory Disorders: No Hx Family Cancer: Yes (Lung) Hx Family GI Disorders: No Hx Family Endocrine Disorder: No Hx Family Neuromuscular Disorders: No Hx Family Neurologic Disorders: Yes (CVA) Hx Family HEENT Disorders: No Hx Family Autoimmune Disorders: No Review of Systems: GI: as per [facility]: denies fever, has some chills EYES: denies yellow discoloration ENT: denies pain with swallowing or difficulty swallowing CARDIO: see hpi RESP: No Shortness of breath with exertion : denies change in color of urine NEURO: denies any weakness HEME: Denies any bruising MS: chronic joint pain, and back back pain. DERM: denies rash or itching PSYCH: Denies history of anxiety or depression - Constitutional Vitals: Temp Pulse Resp BP Pulse Ox 98.2 F 94 16 104/74 94 01/08/18 11:06 01/08/18 11:06 01/08/18 11:06 01/08/18 11:06 01/08/18 11:06 Exam: CONSTITUTIONAL:~alert, no acute distress.~HEAD:~normocephalic.~EYES:~no jaundice.~NECK:~no obvious swelling.~HEART:~regular rate and rhythm, no murmurs. ~LUNGS:~bilateral good air entry.~ABDOMEN:~non distended, soft, mildly tender, no masses palpable, no organomegaly.~RECTAL EXAM:~Deferred.~EXTREMITIES:~no clubbing, cyanosis or edema.~SKIN:~no stigmata of chronic liver disease.~ NEUROLOGIC:~no obvious focal defect.~~~~ Results - Labs CBC & Chem 7: 01/08/18 03:03 01/08/18 03:03 Labs: Last Result Calcium 7.8 mg/dL (8.6-10.3) L 01/08/18 03:03 Troponin I 0.03 ng/mL (< 0.04) 01/08/18 08:38 Entire Visit Hgb 12.9 g/dL (12.9-16.9) D 01/08/18 03:03 Hct 37.2 % (37.5-50.1) L 01/08/18 03:03 PT 11.5 Seconds (9.4-12.1) 01/07/18 17:36 - ABG ABG results: PT/INR, D-dimer PT 11.5 Seconds (9.4-12.1) 01/07/18 17:36 - Impressions Impressions Echocardiogram 01/08/18 20:24 Impressions: LVEF 65%. Normal LV chamber size, wall thickness and function. Mild left ventricular diastolic dysfunction. Normal right ventricular structure and function. No evidence of pulmonary hypertension. No significant valvular dysfunction. Left Ventricular Wall Motion: Rest Echo Findings All wall segments showed normal motion. Findings: Study Quality * Technically adequate exam. ECG Findings * Normal sinus rhythm. Left Ventricle * LVEF 65%. * Normal LV chamber size, wall thickness and function. * Mild left ventricular diastolic dysfunction. Right Ventricle * Normal right ventricular structure and function. Left Atrium * Mildly dilated left atrium. Right Atrium * Normal right atrial size. Interatrial Septum * Interatrial septum not well evaluated. Aortic Valve * Trileaflet aortic valve with normal function. * No aortic regurgitation. * No aortic stenosis. Mitral Valve * Normal mitral valve structure and function. * No mitral regurgitation. * No mitral stenosis. Tricuspid Valve * Normal tricuspid valve structure and function. * Trace tricuspid regurgitation. * No evidence of pulmonary hypertension. Pulmonic Valve * Normal pulmonic valve structure and function. * Trace pulmonic regurgitation. Aorta * Normally sized aortic root. Pericardium * The pericardium appears normal. IVC * Normal IVC dimensions and inspiratory collapse. Pulmonary Artery * Normal visualized portions of the main pulmonary artery. Consult Discharge Plan - Plan Referrals: Praneeth Ruiz MD [Primary Care Provider] - 01/17/18 9:30 am ([phone]) <Randell French - Last Filed: 01/08/18 20:42> Date of Encounter: 01/08/18 Time of Encounter: 18:00 - Time Spent With Patient Total time spent is greater than 50% in coordination of care (as documented) at patient's floor/unit and/or counseling patient: GI History of Present Illness - Data of Consult Requesting Physician: Ronald Almeida MD - Consult Narrative History of present illness: Mr. Ro is a 67 year old male - Constitutional Vitals: Temp Pulse Resp BP Pulse Ox 98.7 F 94 17 100/67 97 01/08/18 20:30 01/08/18 20:30 01/08/18 20:30 01/08/18 20:30 01/08/18 20:30 Results - Labs CBC & Chem 7: 01/08/18 03:03 01/08/18 03:03 Labs: Last Result Calcium 7.8 mg/dL (8.6-10.3) L 01/08/18 03:03 Troponin I 0.03 ng/mL (< 0.04) 01/08/18 08:38 Entire Visit Hgb 12.9 g/dL (12.9-16.9) D 01/08/18 03:03 Hct 37.2 % (37.5-50.1) L 01/08/18 03:03 PT 11.5 Seconds (9.4-12.1) 01/07/18 17:36 - ABG ABG results: PT/INR, D-dimer PT 11.5 Seconds (9.4-12.1) 01/07/18 17:36 - Impressions Impressions Echocardiogram 01/08/18 20:24 Impressions: LVEF 65%. Normal LV chamber size, wall thickness and function. Mild left ventricular diastolic dysfunction. Normal right ventricular structure and function. No evidence of pulmonary hypertension. No significant valvular dysfunction. Left Ventricular Wall Motion: Rest Echo Findings All wall segments showed normal motion. Findings: Study Quality * Technically adequate exam. ECG Findings * Normal sinus rhythm. Left Ventricle * LVEF 65%. * Normal LV chamber size, wall thickness and function. * Mild left ventricular diastolic dysfunction. Right Ventricle * Normal right ventricular structure and function. Left Atrium * Mildly dilated left atrium. Right Atrium * Normal right atrial size. Interatrial Septum * Interatrial septum not well evaluated. Aortic Valve * Trileaflet aortic valve with normal function. * No aortic regurgitation. * No aortic stenosis. Mitral Valve * Normal mitral valve structure and function. * No mitral regurgitation. * No mitral stenosis. Tricuspid Valve * Normal tricuspid valve structure and function. * Trace tricuspid regurgitation. * No evidence of pulmonary hypertension. Pulmonic Valve * Normal pulmonic valve structure and function. * Trace pulmonic regurgitation. Aorta * Normally sized aortic root. Pericardium * The pericardium appears normal. IVC * Normal IVC dimensions and inspiratory collapse. Pulmonary Artery * Normal visualized portions of the main pulmonary artery. - Attending Attestation I have personally performed a face to face evaluation on this patient. I have reviewed and agree with the care plan. History and Exam by me shows: pt seen. Patient with the rectal bleeding also with chest pain. Recommendation: EGD to rule out esophageal causes for chest pain and colon for his rectal bleeding
[2018-01-08] MEDS: Insulin LISPRO 300 UNITS/3 ML VIAL SQ SCH ×3 (14:48→20:48)
[2018-01-08] MEDS: traMADol 50 MG TABLET PO PRN ×2 (14:53→20:54)
[2018-01-08] MEDS ORDERED: SODIUM CHLORIDE/NAHCO3/KCL/PEG 4,000 ML SOLN.RECON PO ONE (17:00)
[2018-01-08] MEDS: tiZANidine 4 MG TABLET PO PRN (17:37)
[2018-01-08] MEDS: traZODone 50 MG TABLET PO SCH (20:48)
--- NOTE | 2018-01-08 23:00 | Internal Med Progress Note ---
Date of Encounter: 01/08/18 Time of Encounter: 17:07 - Assessment and plan (1) Rectal bleeding Current Visit: Yes Status: Acute Assessment and plan: Patient has history of hemorrhoids and diverticulosis. CT abdomen redemonstrated diverticulosis without diverticulitis. Hemoglobin slightly decreased this AM. GI consulted; appreciate input. Plan for endoscopy tomorrow. Continue protonix IV BID. Recheck CBC in AM. (2) Chest pain Current Visit: Yes Status: Acute Assessment and plan: Atypical chest pain possibly related to GI bleed. Troponin trended WNL at 12 hours. EKG no acute ST-T change. Due to the possible GI bleeding, continue to hold aspirin. ECHO today with EF 65%, normal LV size and function, mild LV diastolic dysfunction, and no valvular dysfunction. Will defer stress test until GI bleed stabilized. Qualifiers: Chest pain type: unspecified Qualified Code(s): R07.9 - Chest pain, unspecified (3) Acute kidney injury Current Visit: Yes Status: Acute Assessment and plan: Cr slightly improved. Continue IVF. Recheck BMP in AM. (4) Hypertension Current Visit: Yes Status: Chronic Assessment and plan: Continue home medications. Qualifiers: Hypertension type: essential hypertension Qualified Code(s): I10 - Essential (primary) hypertension (5) Anxiety Current Visit: Yes Status: Acute Assessment and plan: Continue home medications. (6) Diabetic neuropathy Current Visit: Yes Status: Chronic Assessment and plan: Continue home medications. Qualifiers: Diabetes mellitus type: type 2 Diabetes mellitus complication detail: diabetic polyneuropathy Qualified Code(s): E11.42 - Type 2 diabetes mellitus with diabetic polyneuropathy (7) DVT prophylaxis Current Visit: Yes Status: Acute Assessment and plan: Anticoagulation deferred at this time due to suspected GI bleed. - Time Spent With Patient Total time spent is greater than 50% in coordination of care (as documented) at patient's floor/unit and/or counseling patient: less than 15 minutes - Subjective Interval history: Patient had no acute events overnight. He is feeling better today. He states chest pain is improved. Nausea and vomiting also better. He denies fever, chills, palpitations, or abdominal pain. - Constitutional Vitals: Temp Pulse Resp BP Pulse Ox 98.7 F 94 17 100/67 97 01/08/18 20:30 04/25/18 20:30 01/08/18 20:30 01/08/18 20:30 01/08/18 20:30 General appearance: Present: A&O X 3 Internal Medicine: Result - Labs CBC & Chem 7: 01/08/18 03:03 01/08/18 03:03 Labs: Short CBC 01/08/18 Range/Units 03:03 WBC 11.0 (4.3-11.1) K/mcL Hgb 12.9 D (12.9-16.9) g/dL Hct 37.2 L (37.5-50.1) % Plt Count 258 (140-400) K/mcL Neutrophils # 10.4 H (1.6-8.9) K/mcL BMP 01/08/18 03:03 Sodium 137 Potassium 3.3 L Chloride 108 H Carbon Dioxide 22 L BUN 30 H Creatinine 1.40 H Glucose 142 H Calcium 7.8 L Cardiac Enzymes 01/08/18 01/08/18 Range/Units 03:03 08:38 Troponin I < 0.03 0.03 (< 0.04) ng/mL - ABG Interpretation ABG results: PT/INR, D-dimer PT 11.5 Seconds (9.4-12.1) 01/07/18 17:36 - Impressions Impressions Echocardiogram 01/08/18 20:24 Impressions: LVEF 65%. Normal LV chamber size, wall thickness and function. Mild left ventricular diastolic dysfunction. Normal right ventricular structure and function. No evidence of pulmonary hypertension. No significant valvular dysfunction. Left Ventricular Wall Motion: Rest Echo Findings All wall segments showed normal motion. Findings: Study Quality * Technically adequate exam. ECG Findings * Normal sinus rhythm. Left Ventricle * LVEF 65%. * Normal LV chamber size, wall thickness and function. * Mild left ventricular diastolic dysfunction. Right Ventricle * Normal right ventricular structure and function. Left Atrium * Mildly dilated left atrium. Right Atrium * Normal right atrial size. Interatrial Septum * Interatrial septum not well evaluated. Aortic Valve * Trileaflet aortic valve with normal function. * No aortic regurgitation. * No aortic stenosis. Mitral Valve * Normal mitral valve structure and function. * No mitral regurgitation. * No mitral stenosis. Tricuspid Valve * Normal tricuspid valve structure and function. * Trace tricuspid regurgitation. * No evidence of pulmonary hypertension. Pulmonic Valve * Normal pulmonic valve structure and function. * Trace pulmonic regurgitation. Aorta * Normally sized aortic root. Pericardium * The pericardium appears normal. IVC * Normal IVC dimensions and inspiratory collapse. Pulmonary Artery * Normal visualized portions of the main pulmonary artery. - VTE Reasons for not Prescribing Prophylaxis: Medical contraindication (Suspected GI bleed.) Consult Discharge Plan - Plan Referrals: Praneeth Ruiz MD [Primary Care Provider] - 01/17/18 9:30 am ([phone])
[2018-01-09] MEDS: 0.9 % Sodium Chloride 1,000 ML IVC SCH ×2 (00:18→05:51)
[2018-01-09 04:33] LABS: Basophils % 0.2 %; Eosinophils % 0.4 %; Hematocrit 38.1 % (37.5-50.1); Immature Granulocytes % 0.5 % (0-4); Lymphocytes # 0.3 K/mcL (0.6-4.6); Mean Corpuscular HGB Conc 34.1 g/dL (31.6-35.5); Mean Corpuscular Hemoglobin 30.4 pg (28.0-33.3); Mean Corpuscular Volume 89.2 fL (83.0-100.0); Mean Platelet Volume 9.7 fL (9.4-12.4); Monocytes # 0.3 K/mcL (0.0-1.3); Monocytes % 2.8 %; Neutrophils # 9.8 K/mcL (1.6-8.9); Platelet Count 192 K/mcL (140-400); Red Blood Count 4.27 M/mcL (4.19-5.50); Red Cell Distribution Width 13.8 % (11.5-14.5); Segmented Neutrophils % 93.1 %
[2018-01-09] MEDS: Pantoprazole 40 MG VIAL IVP SCH ×2 (04:59→16:06)
[2018-01-09 05:00] LABS: BUN/Creatinine Ratio 13 (6-26); Blood Urea Nitrogen 13 mg/dL (8-23); Calcium 7.9 mg/dL (8.6-10.3); Carbon Dioxide 22 mEq/L (23-29); Chloride 106 mEq/L (98-107); Glucose 113 mg/dL (70-105); Osmolality,Calculated 277 (280-300); Potassium 3.6 mEq/L (3.5-5.1); Sodium 133 mEq/L (136-145); eGFR For African Americans > 60 (> 60); eGFR For Non-African Americans > 60 (> 60)
[2018-01-09] MEDS: Insulin LISPRO 300 UNITS/3 ML VIAL SQ SCH ×4 (07:58→21:27)
--- NOTE | 2018-01-09 12:02 | Anesthesia Evaluation PreOp ---
Date of Encounter: 01/09/18 Time of Encounter: 12:00 - Past History Planned Operation: EGD/Colonoscopy Cardiac History: IA, HTN, Hyperlipidemia Pulmonary History: Smoker (50 years), COPD GENERAL ADJUSTER History: Denies Any Significant HX Other Medical History: Diabetes Type II, GERD Anesthesia History: Past Anesthesia (no prior general anesthesia) Alcohol Use: none Drug use: none Medications and Allergies Albuterol Sulfate [Proventil Hfa] 2 puff IH QID PRN 05/13/15 [History] Polyethylene Glycol 3350 [MiraLAX] 17 gm PO DAILY PRN 05/13/15 [History] Tizanidine [Zanaflex] 4 mg PO TID PRN 05/13/15 [History] Ascorbate Calcium [Vitamin C] 500 mg PO BID 07/10/17 [History] Aspirin Enteric Coated [Aspirin EC] 81 mg PO DAILY 07/10/17 [History] Metformin HCl [Glucophage] 1,000 mg PO BID 07/10/17 [History] Potassium Chloride [Klor-Con 10] 10 meq PO BID 07/10/17 [History] Quetiapine Fumarate [Seroquel] 50 mg PO HS #60 tablet 07/16/17 [Rx] ARIPiprazole [Abilify] 2 mg PO DAILY 09/11/17 [History] Duloxetine HCl [Cymbalta] 60 mg PO BID 09/11/17 [History] Gabapentin [Neurontin] 300 mg PO QID 09/11/17 [History] traZODone [TraZODone] 50 mg PO HS 09/11/17 [History] 3 Allergy/AdvReac Type Severity Reaction Status Date / Time No Known Allergies Allergy Verified 01/07/18 19:10 - Meds/Allergy Pre-op Review Medications Reviewed: Yes Allergies Reviewed: Yes Beta Blockers on Current Med List: No Anesthesia Results - Labs 01/09/18 03:58 01/09/18 03:58 - Imaging EKG: report reviewed (09/10/2017 SINUS RHYTHM) Additional studies: 01/08/2018 Echo Impressions: LVEF 65%. Normal LV chamber size, wall thickness and function. Mild left ventricular diastolic dysfunction. Normal right ventricular structure and function. No evidence of pulmonary hypertension. No significant valvular dysfunction. Anesthesia Exam Vital Signs/O2 Sat/Glucose, Most Recent Temp Pulse Resp BP Pulse Ox 97.5 F L 87 18 111/71 96 01/09/18 11:11 01/09/18 11:11 01/09/18 11:11 01/09/18 11:11 01/09/18 11:11 Blood Glucose* 91 Height: 5'5''/1.65 m Weight: 181 lbs/82.1 kg NPO (# of Hours): 8 Pain Scale: 0 Pain Scale Used: Numeric (1 - 10) - HEENT Pupil (Motor): EOMI Mallampati: II Teeth: Missing (1 lower tooth) Denture Type: Upper: Complete Oral Opening: Greater than 3 - GENERAL ADJUSTER LOC: Oriented GENERAL ADJUSTER Motor: Normal RUE, Normal LUE, Normal RLE, Normal LLE, Normal Face GENERAL ADJUSTER Sensory: Normal: RUE, LUE, RLE, LLE, Face - Cardiac Rhythm: Regular Murmur: None - Pulmonary Breath Sounds: bilateral Clear Respiratory Effort: Symmetrical Anesthesia Assess/Plan ASA Score: 3 Modified Yajaira Scale for Level of Consciousness: Cooperative, oriented, and tranquil Anesthetic Plan: MAC Monitoring Plan: Standard Monitors
[2018-01-09] MEDS ORDERED: Propofol 500 MG/50 ML INFUS..BTL ONE (12:50)
[2018-01-09] MEDS ORDERED: Lidocaine -MPF 2% 2 ML VIAL ONE (12:51)
[2018-01-09] MEDS ORDERED: Simethicone 40 MG/0.6 ML MLS IR ONE ×2 (13:50→14:23)
[2018-01-09] MEDS ORDERED: Tetracaine/Benzocaine/Butamben 200MG/SPRAY (100SPY/BOT) MM ONE ×2 (13:50→14:23)
[2018-01-09] MEDS: traMADol 50 MG TABLET PO PRN (16:04)
[2018-01-09] MEDS: Gabapentin 300 MG CAPSULE PO SCH ×3 (16:04→21:27)
[2018-01-09] MEDS: Ascorbic Acid 500 MG TABLET PO SCH ×2 (16:04→21:26)
[2018-01-09] MEDS: ARIPiprazole 2 MG TABLET PO SCH (16:04)
[2018-01-09] MEDS: Acetaminophen 325 MG TABLET PO PRN (21:26)
[2018-01-09] MEDS: traZODone 50 MG TABLET PO SCH (21:26)
--- NOTE | 2018-01-09 22:38 | Internal Med Progress Note ---
Date of Encounter: 01/09/18 Time of Encounter: 21:37 - Assessment and plan (1) Rectal bleeding Current Visit: Yes Status: Acute Assessment and plan: Improving. Patient has history of hemorrhoids and diverticulosis. CT abdomen redemonstrated diverticulosis without diverticulitis. GI consulted; appreciate input. EGD today showed hemorrhoids, diverticulosis, and 1 polyp. Follow up on polyp pathology. Hemoglobin stable this AM. Continue protonix IV BID. Recheck CBC in AM. (2) Chest pain Current Visit: Yes Status: Acute Assessment and plan: Atypical chest pain possibly related to GI bleed. Troponin trended WNL at 12 hours. EKG no acute ST-T change. Since he has possible GI bleeding, will continue to hold aspirin. ECHO with EF 65%, normal LV size and function, mild LV diastolic dysfunction, and no valvular dysfunction. Will consider stress test after GI bleed stabilized. Qualifiers: Chest pain type: unspecified Qualified Code(s): R07.9 - Chest pain, unspecified (3) Acute kidney injury Current Visit: Yes Status: Resolved Assessment and plan: Resolved. Discontinue IVF. Started regular diet tonight after EGD. Recheck BMP in AM. (4) Hypertension Current Visit: Yes Status: Chronic Assessment and plan: Continue home medications. Qualifiers: Hypertension type: essential hypertension Qualified Code(s): I10 - Essential (primary) hypertension (5) Anxiety Current Visit: Yes Status: Chronic Assessment and plan: Continue home medications. (6) Diabetic neuropathy Current Visit: Yes Status: Chronic Assessment and plan: Continue home medications. Qualifiers: Diabetes mellitus type: type 2 Diabetes mellitus complication detail: diabetic polyneuropathy Qualified Code(s): E11.42 - Type 2 diabetes mellitus with diabetic polyneuropathy (7) DVT prophylaxis Current Visit: Yes Status: Acute Assessment and plan: Anticoagulation deferred at this time due to suspected GI bleed. Continue SCDs. - Time Spent With Patient Total time spent is greater than 50% in coordination of care (as documented) at patient's floor/unit and/or counseling patient: less than 15 minutes - Subjective Interval history: Patient had no acute events overnight. He is feeling ok tonight after his EGD. He denies chest pain, SOB, nausea, vomiting, fever, chills, palpitations, or abdominal pain. He has no complaints at this time. - Constitutional Vitals: Temp Pulse Resp BP Pulse Ox 98.1 F 91 17 132/83 95 01/09/18 21:09 01/09/18 21:09 01/09/18 21:09 01/09/18 21:09 01/09/18 21:09 General appearance: Present: cooperative, A&O X 3, pleasant, no acute distress, answers questions appropriately - Respiratory Respiratory exam: Present: CTAB. Absent: accessory muscle use, rales, rhonchi, wheezes Additional comments: Normal WOB - Cardiovascular Cardiovascular exam: Present: RRR, +S1, +S2. Absent: diastolic murmur, gallop, rubs, systolic murmur Additional comments: No BLE edema - GI/Abdominal GI/Abdominal exam: Present: normal bowel sounds, soft. Absent: distended, hepatomegaly, mass, splenomegaly, tenderness - Psychiatric Psychiatric exam: Present: normal affect, normal mood. Absent: agitated, anxious, depressed - Skin Skin exam: Present: dry, intact, warm. Absent: cyanosis, rash Internal Medicine: Result - Labs CBC & Chem 7: 01/09/18 03:58 01/09/18 03:58 Labs: Short CBC 01/09/18 Range/Units 03:58 WBC 10.5 (4.3-11.1) K/mcL Hgb 13.0 (12.9-16.9) g/dL Hct 38.1 (37.5-50.1) % Plt Count 192 (140-400) K/mcL Neutrophils # 9.8 H (1.6-8.9) K/mcL BMP 01/09/18 03:58 Sodium 133 L Potassium 3.6 Chloride 106 Carbon Dioxide 22 L BUN 13 Creatinine 1.00 Glucose 113 H Calcium 7.9 L - ABG Interpretation ABG results: PT/INR, D-dimer PT 11.5 Seconds (9.4-12.1) 01/07/18 17:36 - VTE Reasons for not Prescribing Prophylaxis: Medical contraindication (Suspected GI bleed.) Documentation of Mechanical Device: Intermittent pneumatic compression device Consult Discharge Plan - Plan Referrals: Praneeth Ruiz MD [Primary Care Provider] - 01/17/18 9:30 am ([phone])
[2018-01-10 05:15] LABS: Basophils % 0.3 %; Eosinophils # 0.1 K/mcL (0.0-0.6); Eosinophils % 1.7 %; Hematocrit 37.6 % (37.5-50.1); Hemoglobin 12.9 g/dL (12.9-16.9); Immature Granulocytes % 0.4 % (0-4); Lymphocytes # 0.3 K/mcL (0.6-4.6); Lymphocytes % 4.1 %; Mean Corpuscular HGB Conc 34.3 g/dL (31.6-35.5); Mean Corpuscular Hemoglobin 29.9 pg (28.0-33.3); Mean Corpuscular Volume 87.2 fL (83.0-100.0); Mean Platelet Volume 10.2 fL (9.4-12.4); Monocytes # 0.3 K/mcL (0.0-1.3); Monocytes % 3.4 %; Platelet Count 187 K/mcL (140-400); Red Blood Count 4.31 M/mcL (4.19-5.50); Red Cell Distribution Width 13.5 % (11.5-14.5); Segmented Neutrophils % 90.1 %
[2018-01-10 05:32] LABS: BUN/Creatinine Ratio 10 (6-26); Blood Urea Nitrogen 9 mg/dL (8-23); Calcium 8.1 mg/dL (8.6-10.3); Carbon Dioxide 22 mEq/L (23-29); Chloride 107 mEq/L (98-107); Glucose 91 mg/dL (70-105); Osmolality,Calculated 278 (280-300); Potassium 3.4 mEq/L (3.5-5.1); Sodium 135 mEq/L (136-145); eGFR For African Americans > 60 (> 60); eGFR For Non-African Americans > 60 (> 60)
[2018-01-10] MEDS: Pantoprazole 40 MG VIAL IVP SCH (05:52)
[2018-01-10] MEDS: traMADol 50 MG TABLET PO PRN ×2 (05:55→16:24)
[2018-01-10] MEDS: Insulin LISPRO 300 UNITS/3 ML VIAL SQ SCH ×4 (09:20→23:26)
[2018-01-10] MEDS: ARIPiprazole 2 MG TABLET PO SCH (09:28)
[2018-01-10] MEDS: Gabapentin 300 MG CAPSULE PO SCH ×4 (09:28→20:01)
[2018-01-10] MEDS: Acetaminophen 325 MG TABLET PO PRN (09:28)
[2018-01-10] MEDS: Ascorbic Acid 500 MG TABLET PO SCH ×2 (09:28→20:01)
[2018-01-10] MEDS: Aspirin Enteric Coated 81 MG Tablet PO SCH (13:47)
[2018-01-10] MEDS: Lisinopril 20 MG TABLET PO SCH (16:22)
--- NOTE | 2018-01-10 18:26 | Electrocardiograph Report ---
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
--- NOTE | 2018-01-10 19:07 | Electrocardiograph Report ---
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
[2018-01-10] MEDS: traZODone 50 MG TABLET PO SCH (20:01)
--- NOTE | 2018-01-10 21:38 | Internal Med Progress Note ---
Date of Encounter: 01/10/18 Time of Encounter: 14:37 - Assessment and plan (1) Rectal bleeding Current Visit: Yes Status: Resolved Assessment and plan: Resolved. Hemoglobin stabilized. Patient has history of hemorrhoids and diverticulosis. CT abdomen redemonstrated diverticulosis without diverticulitis. GI consulted; appreciate input. S/P EGD which showed hemorrhoids, diverticulosis, and 1 polyp. Follow up on polyp pathology. Transition to PO PPI BID. Recheck CBC in AM. (2) Chest pain Current Visit: Yes Status: Acute Assessment and plan: Atypical chest pain possibly related to GI bleed. Troponin trended WNL at 12 hours. E[address] no acute [address]-T change. Since he has possible GI bleeding, will continue to hold aspirin. ECHO with EF 65%, normal LV size and function, mild LV diastolic dysfunction, and no valvular dysfunction. Given risk factors, will order stress test now that rectal bleeding is resolved. NPO after midnight. Qualifiers: Chest pain type: unspecified Qualified Code(s): R07.9 - Chest pain, unspecified (3) Acute kidney injury Current Visit: Yes Status: Resolved Assessment and plan: Resolved. Recheck BMP in AM. (4) Hypertension Current Visit: Yes Status: Chronic Assessment and plan: Continue home medications. Qualifiers: Hypertension type: essential hypertension Qualified Code(s): I10 - Essential (primary) hypertension (5) Anxiety Current Visit: Yes Status: Chronic Assessment and plan: Continue home medications. (6) Diabetic neuropathy Current Visit: Yes Status: Chronic Assessment and plan: Continue home medications. Qualifiers: Diabetes mellitus type: type 2 Diabetes mellitus complication detail: diabetic polyneuropathy Qualified Code(s): E11.42 - Type 2 diabetes mellitus with diabetic polyneuropathy (7) DVT prophylaxis Current Visit: Yes Status: Acute Assessment and plan: Anticoagulation deferred at this time due to recent rectal/GI bleed. Continue SCDs. - Time Spent With Patient Total time spent is greater than 50% in coordination of care (as documented) at patient's floor/unit and/or counseling patient: less than 15 minutes - Subjective Interval history: Patient had no acute events overnight. He is feeling "good" today. He denies chest pain, SOB, nausea, vomiting, fever, chills, palpitations, or abdominal pain. He has no complaints at this time. - Constitutional Vitals: Temp Pulse Resp BP Pulse Ox 97.7 F 87 18 156/99 94 01/10/18 19:05 01/10/18 19:05 01/10/18 19:05 01/10/18 19:05 01/10/18 19:05 General appearance: Present: cooperative, A&O X 3, pleasant, no acute distress, answers questions appropriately - Respiratory Respiratory exam: Present: CTAB. Absent: accessory muscle use, rales, rhonchi, wheezes Additional comments: Normal WOB - Cardiovascular Cardiovascular exam: Present: RRR, +S1, +S2. Absent: diastolic murmur, gallop, rubs, systolic murmur Additional comments: No BLE edema - GI/Abdominal GI/Abdominal exam: Present: normal bowel sounds, soft. Absent: distended, hepatomegaly, mass, splenomegaly, tenderness - Psychiatric Psychiatric exam: Present: normal affect, normal mood. Absent: agitated, anxious, depressed - Skin Skin exam: Present: dry, intact, warm. Absent: cyanosis, rash Internal Medicine: Result - Labs CBC & Chem 7: 01/10/18 04:28 01/10/18 04:28 Labs: Short CBC 01/10/18 Range/Units 04:28 WBC 7.8 (4.3-11.1) K/mcL Hgb 12.9 (12.9-16.9) g/dL Hct 37.6 (37.5-50.1) % Plt Count 187 (140-400) K/mcL Neutrophils # 7.0 (1.6-8.9) K/mcL BMP 01/10/18 04:28 Sodium 135 L Potassium 3.4 L Chloride 107 Carbon Dioxide 22 L BUN 9 Creatinine 0.88 Glucose 91 Calcium 8.1 L - ABG Interpretation ABG results: PT/INR, D-dimer PT 11.5 Seconds (9.4-12.1) 01/07/18 17:36 - VTE Reasons for not Prescribing Prophylaxis: Medical contraindication (Suspected rectal/GI bleed.) Documentation of Mechanical Device: Intermittent pneumatic compression device Consult Discharge Plan - Plan Referrals: Praneeth Ruiz MD [Primary Care Provider] - 01/17/18 9:30 am ([phone])
[2018-01-11 04:36] LABS: Basophils % 0.6 %; Eosinophils # 0.1 K/mcL (0.0-0.6); Eosinophils % 1.7 %; Hematocrit 40.5 % (37.5-50.1); Hemoglobin 14.3 g/dL (12.9-16.9); Immature Granulocytes % 0.5 % (0-4); Lymphocytes # 0.5 K/mcL (0.6-4.6); Lymphocytes % 8.3 %; Mean Corpuscular HGB Conc 35.3 g/dL (31.6-35.5); Mean Corpuscular Hemoglobin 30.2 pg (28.0-33.3); Mean Corpuscular Volume 85.6 fL (83.0-100.0); Mean Platelet Volume 10.2 fL (9.4-12.4); Monocytes # 0.4 K/mcL (0.0-1.3); Monocytes % 5.4 %; Neutrophils # 5.4 K/mcL (1.6-8.9); Platelet Count 210 K/mcL (140-400); Red Blood Count 4.73 M/mcL (4.19-5.50); Red Cell Distribution Width 13.3 % (11.5-14.5); Segmented Neutrophils % 83.5 %
[2018-01-11 04:52] LABS: BUN/Creatinine Ratio 9 (6-26); Blood Urea Nitrogen 8 mg/dL (8-23); Calcium 8.7 mg/dL (8.6-10.3); Carbon Dioxide 22 mEq/L (23-29); Chloride 104 mEq/L (98-107); Glucose 98 mg/dL (70-105); Osmolality,Calculated 276 (280-300); Potassium 3.4 mEq/L (3.5-5.1); Sodium 134 mEq/L (136-145); eGFR For African Americans > 60 (> 60); eGFR For Non-African Americans > 60 (> 60)
[2018-01-11] MEDS ORDERED: Regadenoson 0.4 MG/5 ML SYRINGE IVP ONE (06:03)
[2018-01-11] MEDS: Insulin LISPRO 300 UNITS/3 ML VIAL SQ SCH ×2 (09:02→12:19)
[2018-01-11] MEDS: ARIPiprazole 2 MG TABLET PO SCH (10:36)
[2018-01-11] MEDS: Gabapentin 300 MG CAPSULE PO SCH ×2 (10:36→12:21)
[2018-01-11] MEDS: Aspirin Enteric Coated 81 MG Tablet PO SCH (10:36)
[2018-01-11] MEDS: Lisinopril 20 MG TABLET PO SCH (10:37)
[2018-01-11] MEDS: Ascorbic Acid 500 MG TABLET PO SCH (10:37)
[2018-01-11 11:40] VITALS: BP 174/118
[2018-01-11] MEDS ORDERED: Lisinopril 20 MG TABLET PO ONE (11:54)
--- NOTE | 2018-01-11 14:26 | Discharge Summary ---
- NOTES TO OUTPATIENT PROVIDER Notes to Outpatient Provider: Follow up with PCP in 2-3 days after discharge. Recheck BMP (JASON) and CBC (rectal bleeding) at that time. Recheck BP at that time and adjust antihypertensives accordingly. Follow up on polyp pathology from hospital colonscopy. Orders not resulted at time of discharge: Pending orders 01/09/18 14:20 Surgical Pathology [PTH] Routine 01/10/18 11:49 NM connor perf SPECT multi [NM] Routine 01/12/18 04:00 BMP [Basic Metabolic Panel] AM 0400 Date of Encounter: 01/11/18 Time of Encounter: 14:24 - Discharge Diagnosis (1) Rectal bleeding Priority: Primary Status: Resolved (2) Chest pain Priority: Secondary Status: Acute Qualifiers: Chest pain type: unspecified Qualified Code(s): R07.9 - Chest pain, unspecified (3) Acute kidney injury Priority: Secondary Status: Resolved (4) Hypertension Priority: Secondary Status: Chronic Qualifiers: Hypertension type: essential hypertension Qualified Code(s): I10 - Essential (primary) hypertension (5) Anxiety Priority: Secondary Status: Chronic (6) Diabetic neuropathy Priority: Secondary Status: Chronic Qualifiers: Diabetes mellitus type: type 2 Diabetes mellitus complication detail: diabetic polyneuropathy Qualified Code(s): E11.42 - Type 2 diabetes mellitus with diabetic polyneuropathy (7) DVT prophylaxis Priority: Secondary Status: Acute Hospital course: Mr. Ro is a 67 year old white male admitted for rectal bleeding and ACS ruleout. He was admitted to general medical floor with telemetry. He was started on IV PPI. Serial blood work was obtained, and hemoglobin remained stable. Rectal bleeding resolved. GI was consulted. He was taken to endoscopy. Endoscopy revealed hemorrhoids, diverticulosis, and 1 polyp. Polyp pathology is pending. ECHO was obtained and showed LVEF 65%, normal LV size and function, mild LV diastolic dysfunction, and no valvular dysfunction. Once bleeding was stabilized, he was taken to stress test. Stress test showed no ischemia. He still has some mild chest pain today; further workup can be completed as outpatient. He had mild hypertension, which improved with initiation of home lisinopril and hydralazine PRN. He will follow up with PCP in 2-3 days after discharge. Repeat BMP and CBC can be obtained at that time. BP can be rechecked at that time, and antihypertensives can be adjusted accordingly. Patient has met maximum benefit of this hospitalization and will be discharged home in stable condition. Discharge discussed with: patient, nurse - Time Spent with Patient Total time spent providing and/or coordinating discharge services: Greater than 30 minutes - Discharge Medications Prescriptions: Lisinopril [Zestril] 40 mg PO DAILY 7 Days #14 tablet Omeprazole [PriLOSEC] 20 mg PO DAILY 7 Days #7 capsule. Home Medications: Albuterol Sulfate [Proventil Hfa] 2 puff IH QID PRN 05/13/15 [History] Polyethylene Glycol 3350 [MiraLAX] 17 gm PO DAILY PRN 05/13/15 [History] Tizanidine [Zanaflex] 4 mg PO TID PRN 05/13/15 [History] Ascorbate Calcium [Vitamin C] 500 mg PO BID 07/10/17 [History] Aspirin Enteric Coated [Aspirin EC] 81 mg PO DAILY 07/10/17 [History] Metformin HCl [Glucophage] 1,000 mg PO BID 07/10/17 [History] Potassium Chloride [Klor-Con 10] 10 meq PO BID 07/10/17 [History] Quetiapine Fumarate [Seroquel] 50 mg PO HS #60 tablet 07/16/17 [Rx] ARIPiprazole [Abilify] 2 mg PO DAILY 09/11/17 [History] Duloxetine HCl [Cymbalta] 60 mg PO BID 09/11/17 [History] Gabapentin [Neurontin] 300 mg PO QID 09/11/17 [History] traZODone [TraZODone] 50 mg PO HS 09/11/17 [History] Lisinopril [Zestril] 40 mg PO DAILY 7 Days #14 tablet 01/11/18 [Rx] Omeprazole [PriLOSEC] 20 mg PO DAILY 7 Days #7 capsule. 01/11/18 [Rx] Allergies/Adverse Reactions: 3 Allergy/AdvReac Type Severity Reaction Status Date / Time No Known Allergies Allergy Verified 01/07/18 19:10 Date of admission: 01/07/18 21:25 Primary care physician: Praneeth Ruiz MD Consults: 01/07/18 22:37 Consult to Gastroenterology [CONS] Routine Consulting Provider: Gastroenterology Nika Reason for Consult: GI bleeding Call Completed: No Discharging clinician: Oliver Santos Anticipated date of discharge: 01/11/18 - Constitutional Vitals: Temp Pulse Resp BP Pulse Ox 98.2 F 75 15 174/118 98 01/11/18 07:56 01/11/18 07:56 01/11/18 07:56 01/11/18 11:33 01/11/18 07:56 General appearance: Present: cooperative, A&O X 3, pleasant, no acute distress, answers questions appropriately - Respiratory Respiratory exam: Present: CTAB. Absent: accessory muscle use, rales, rhonchi, wheezes Additional comments: Normal WOB - Cardiovascular Cardiovascular exam: Present: RRR, +S1, +S2. Absent: diastolic murmur, gallop, rubs, systolic murmur Additional comments: No BLE edema - GI/Abdominal GI/Abdominal exam: Present: normal bowel sounds, soft. Absent: distended, hepatomegaly, mass, splenomegaly, tenderness - Psychiatric Psychiatric exam: Present: normal affect, normal mood. Absent: agitated, anxious, depressed - Skin Skin exam: Present: dry, intact, warm. Absent: cyanosis, rash - Patient Status Disposition: Home, Self-Care Condition: Good Functional capacity at discharge: independent ambulation Overall status at discharge: patient is back to baseline - Discharge Instructions Follow Up With: Praneeth Ruiz MD [Primary Care Provider] - 01/17/18 9:30 am ([phone]) Additional Instructions: Follow up with PCP in 2-3 days after discharge. Recheck BMP (JASON) and CBC ( rectal bleeding) at that time. Recheck BP at that time and adjust antihypertensives accordingly. Follow up on polyp pathology from hospital colonscopy. - Diet and Activity Activity: resume usual activities as tolerated Diet: low fat, low cholesterol, low salt diet, other (Cardiac Diet) - VTE Reasons for not Prescribing Prophylaxis: Medical contraindication (Rectal Bleeding) Documentation of Mechanical Device: Intermittent pneumatic compression device
[2018-01-12] MEDS ORDERED: Lisinopril 20 MG TABLET PO SCH (09:00)
== END 2018-01-11 14:59 | disposition home or self-care (01) | DRG 378 ==
LOC: EMEROO 16:12 → 2ANU 16:12
PROVIDERS: ADMIT Pediatrics; ATTEND Pediatrics
PROC: ENDOCBX (2018-01-09 14:00)
PROC: ENDOEBX (2018-01-09 14:00)

== ENCOUNTER 2019-01-11 11:13 | Inpatient (IN) ==
--- NOTE | 2019-01-11 11:24 | Emergency Department Note ---
Disposition Clinical Impression: Acute coronary syndrome Disposition: Admitted As Inpatient Condition: Good Time of Disposition: 12:42 Chest Pain HPI - General Stated Complaint: chest pain Time Seen by Provider: 01/11/19 11:19 Vital Signs Reviewed: Yes Nursing Notes Reviewed: Yes - History of Present Illness HPI Narrative: 68-year-old male presents from home for evaluation of chest pain. Onset 2 days ago. Describes a left parasternal chest heaviness. Radiates to his left shoulder. Present at rest and worsened with exertion. Associated with fatigue, diaphoresis and nausea. He does not remember his symptoms with [facility] 2 years ago; he is unable to compare symptoms today to symptoms at that time. PMH: Diabetes, diverticulosis, chronic back pain, and hypertension. Habits: Remote history of tobacco smoking. ROS: Positive: Chest heaviness at rest with associated diaphoresis, nausea, and radiation to left shoulder. Negative: Fever, vomiting, palpitations, trauma, abdominal pain, diarrhea, constipation - Related Data Home Medications Medication Instructions Recorded Confirmed Albuterol Sulfate [Proventil Hfa] 2 puff IH QID PRN 05/13/15 01/11/19 Polyethylene Glycol 3350 [MiraLAX] 17 gm PO DAILY PRN 05/13/15 01/11/19 Ascorbate Calcium [Vitamin C] 500 mg PO BID 07/10/17 01/11/19 Aspirin Enteric Coated [Aspirin EC] 81 mg PO DAILY 07/10/17 01/11/19 Metformin HCl [Glucophage] 1,000 mg PO BID 07/10/17 01/11/19 ARIPiprazole [Abilify] 2 mg PO DAILY 09/11/17 01/11/19 Duloxetine HCl [Cymbalta] 60 mg PO BID 09/11/17 01/11/19 Gabapentin [Neurontin] 300 mg PO TID 09/11/17 01/11/19 traZODone [TraZODone] 100 mg PO HS 09/11/17 01/11/19 Gabapentin [Neurontin] 400 mg PO TID 12/05/18 01/11/19 HydrOXYzine Pamoate [Vistaril] 50 mg PO DAILY 12/05/18 01/11/19 Simvastatin [Zocor] 20 mg PO HS 12/05/18 01/11/19 Tizanidine HCl 4 mg PO TID 12/05/18 01/11/19 Previous Rx's Medication Instructions Recorded Quetiapine Fumarate [Seroquel] 50 mg PO HS #60 tablet 07/16/17 Lisinopril [Zestril] 40 mg PO DAILY 7 Days #14 tablet 01/11/18 Omeprazole [PriLOSEC] 20 mg PO DAILY 7 Days #7 capsule. 01/11/18 Allergies Allergy/AdvReac Type Severity Reaction Status Date / Time No Known Allergies Allergy Verified 12/05/18 20:18 All systems ED: reviewed and negative except as stated. Review of Systems: As Per HPI Chest Pain PMH - Past Medical History Medical history: Reports: CHF, COPD, diabetes, GERD, GI bleed, hyperlipidemia, hypertension, myocardial infarction, other Surgical history: Reports: no surgical history Psychiatric history: Reports: anxiety - Social History Smoking Status: Current every day smoker Alcohol use: Reports: none Drug use: Reports: none Physical Exam Vital Signs Reviewed General: Patient is alert, oriented, and in no acute distress. He appears fatigued. Head: atraumatic, normocephalic Eye: normal appearance, PERRL, EOMI, no scleral icterus, no conjunctival injection ENT: mucous membranes moist, normal external ear exam Neck: normal inspection, trachea midline, full ROM Chest: normal inspection, symmetric chest rise Respiratory: Poor respiratory effort. Bilateral breath sounds are clear without wheezing, crackles, or rhonchi. Cardiovascular: Regular rate and rhythm. No clicks, rubs, gallops, or murmors. Normal heart sounds. Bilateral radial pulses 2/4 equal. No pedal edema. Abdomen: Bowel sounds present normoactive. Abdomen is soft, nondistended, and nontender. No guarding or rebound. No organomegaly noted. Musculoskeletal: Spontaneously moving all extremities. Skin: warm, dry, intact. Neuro: GCS 15. No focal neurologic deficits observed. Psych: Patient's affect is appropriate for situation. Course Course Narrative: Non-exercise stress test 01/11/2018; nearly exactly 1 year ago: Cardiology impression: Pharmacologic stress ECG is negative for ischemia at level of heart rate achieved. Chest discomfort reported prior to, during, and after the study. Gated EF = 73%. Small sized, mild intensity, fixed inferior perfusion defect. Wall motion is normal. These findings are most consistent with artifact. Perfusion imaging was negative for ischemia or infarct. Echocardiogram 01/08/2018; nearly exactly 1 year ago. Cardiology impression: EV/EV echocardiogram Impressions: LVEF 65%. Normal LV chamber size, wall thickness and function. Mild left ventricular diastolic dysfunction. Normal right ventricular structure and function. No evidence of pulmonary hypertension. No significant valvular dysfunction. Left Ventricular Wall Motion: Rest Echo Findings. All wall segments showed normal motion. EKG dated 01/11/2019 at 11:20 to read as sinus rhythm with rate of 60. OK 181, curettes 85, QTC 409. Normal axis. Minimal ST elevation isolated to V2 with no contiguous leads in no reciprocal changes. Changes V2 are new compared to previous EKG dated 01/09/2019. Clinical concern for possible ACS. Patient is a concerning history. EKG shows a concerning athletic a minimal ST elevation in lead V2 with no contiguous changes or reciprocal changes. Patient does have chest pain at this time. Chest pain workup. Nitroglycerin trial. Patient received 2 sublingual nitroglycerin. No improvement in pain. His blood pressure reduced from systolic to 11 to the 170s. He refused the third; nitroglycerin. Serum hematology is unremarkable. Serum chemistry is unremarkable. Initial troponin is within normal limits. Chest x-ray is unremarkable. Given the patient's concerning history and chest pain at rest, have recommended admission for continued cardiac evaluation. Patient is agreeable to this plan. I discussed the patient with the admitting hospitalist, Dr. Boggs. He request nitroglycerin drip at this time given the patient's persistent chest pain and hypertension with systolic 170s. I have ordered this. He is except the patient for continued evaluation of chest pain Vital Signs Temperature 98.1 F 01/11/19 11:17 Pulse Rate 63 01/11/19 11:17 Respiratory Rate 16 01/11/19 11:17 Blood Pressure 211/126 01/11/19 11:17 O2 Sat by Pulse Oximetry 99 01/11/19 11:17 Temperature 98.1 F 01/11/19 11:17 Pulse Rate 80 01/11/19 11:48 Respiratory Rate 20 01/11/19 11:48 Blood Pressure 177/130 01/11/19 11:48 O2 Sat by Pulse Oximetry 98 01/11/19 11:48 Oxygen Delivery Oxygen Delivery Room Air Chest Pain - Lab Data Result diagrams: 01/11/19 11:22 01/11/19 11:22 Lab Results 01/11/19 01/11/19 01/11/19 Range/Units 11:22 11:22 11:22 WBC 7.3 (4.3-11.1) K/mcL RBC 5.58 H (4.19-5.50) M/mcL Hgb 16.8 D (12.9-16.9) g/dL Hct 48.9 (37.5-50.1) % MCV 87.6 (83.0-100.0) fL MCH 30.1 (28.0-33.3) pg MCHC 34.4 (31.6-35.5) g/dL RDW 12.9 (11.5-14.5) % Plt Count 352 (140-400) K/mcL MPV 9.4 (9.4-12.4) fL Immature Gran % 0.3 (0-4) % Seg Neutrophils % 74.2 % Lymphocytes % 17.4 % Monocytes % 5.5 % Eosinophils % 1.5 % Basophils % 1.1 % Neutrophils # 5.4 (1.6-8.9) K/mcL Lymphocytes # 1.3 (0.6-4.6) K/mcL Monocytes # 0.4 (0.0-1.3) K/mcL Eosinophils # 0.1 (0.0-0.6) K/mcL Basophils # 0.1 (0.0-0.2) K/mcL PT 11.0 (9.4-12.1) Seconds INR 1.0 APTT 33.0 (26.0-36.0) Seconds Sodium 133 L (136-145) mEq/L Potassium 4.1 (3.5-5.1) mEq/L Chloride 100 (98-107) mEq/L Carbon Dioxide 25 (23-29) mEq/L BUN 12 (8-23) mg/dL Creatinine 1.21 (0.70-1.30) mg/dL Est GFR ( Amer) > 60 (> 60) Est GFR (Non-Af Amer) 60 (> 60) BUN/Creatinine Ratio 10 (6-26) Glucose 115 H (70-105) mg/dL Calculated Osmolality 277 L (280-300) Calcium 9.7 (8.6-10.3) mg/dL Troponin I < 0.03 (< 0.04) ng/mL Heart Score - Score History: Moderately Suspicious EKG: Non Specific repolarisation Disturbance Age: Greater than 65 Risk Factors: Equal/Greater than 3 risk factor or history of atherosclerotic disease Troponin: Less than normal limit HEART Score Total: 6
[2019-01-11] MEDS ORDERED: Aspirin 81 MG TAB.CHEW PO ONE (11:31)
[2019-01-11] MEDS ORDERED: Nitroglycerin 0.4 MG TAB.SUBL SL PRN (11:31)
--- NOTE | 2019-01-11 11:35 | Emergency Department Note ---
Disposition Clinical Impression: Acute coronary syndrome Disposition: Admitted As Inpatient General Adult HPI - General Chief complaint: ED Chest Pain Stated complaint: chest pain Time Seen by Provider: 01/11/19 11:19 Source: patient Limitations: no limitations Nursing Notes Reviewed: Yes Vital Signs Reviewed: Yes - History of Present Illness HPI Narrative: ED attending attestation note: I examined this patient and my medical decision-making was reviewed with the emergency medicine resident JESSI ROLLINS agree with the documented findings, disposition and treatment plan as described except to the extent set forth below. Briefly: 68-year-old male states he has had a heart attack 2 years ago but never got a stent states that he has been having pain even at rest worse with exertion for the past 2 days. Patient is fatigue and diaphoresis. The pain radiates to the left arm and shoulder. Associated with nausea. EKG shows a questionable ST elevation minimally in V2 but this or supple changes or contiguously changes compared to a prior EKG. Patient had a nitroglycerin trial since he is hypertensive at 211 and worried about ACS. Patient will get screening labs chest x-ray aspirin patient will be admitted. Providing 35 minutes critical care service for this patient. Pain Scale: 10 - Related Data Home Medications Medication Instructions Recorded Confirmed Albuterol Sulfate [Proventil Hfa] 2 puff IH QID PRN 05/13/15 12/05/18 Polyethylene Glycol 3350 [MiraLAX] 17 gm PO DAILY PRN 05/13/15 12/05/18 Ascorbate Calcium [Vitamin C] 500 mg PO BID 07/10/17 12/05/18 Aspirin Enteric Coated [Aspirin EC] 81 mg PO DAILY 07/10/17 12/05/18 Metformin HCl [Glucophage] 1,000 mg PO BID 07/10/17 12/05/18 ARIPiprazole [Abilify] 2 mg PO DAILY 09/11/17 12/05/18 Duloxetine HCl [Cymbalta] 60 mg PO BID 09/11/17 12/05/18 Gabapentin [Neurontin] 300 mg PO TID 09/11/17 12/05/18 traZODone [TraZODone] 100 mg PO HS 09/11/17 12/05/18 Gabapentin [Neurontin] 400 mg PO TID 12/05/18 12/05/18 HydrOXYzine Pamoate [Vistaril] 50 mg PO DAILY 12/05/18 12/05/18 Simvastatin [Zocor] 20 mg PO HS 12/05/18 12/05/18 Tizanidine HCl 4 mg PO TID 12/05/18 12/05/18 Previous Rx's Medication Instructions Recorded Quetiapine Fumarate [Seroquel] 50 mg PO HS #60 tablet 07/16/17 Lisinopril [Zestril] 40 mg PO DAILY 7 Days #14 tablet 01/11/18 Omeprazole [PriLOSEC] 20 mg PO DAILY 7 Days #7 capsule. 01/11/18 Allergies Allergy/AdvReac Type Severity Reaction Status Date / Time No Known Allergies Allergy Verified 12/05/18 20:18 Past Medical History - Past Medical History Medical history: Reports: CHF, COPD, diabetes, GERD, GI bleed, hyperlipidemia, hypertension, myocardial infarction, other Surgical history: Reports: no surgical history Psychiatric history: Reports: anxiety - Social History Smoking Status: Current every day smoker Smokeless Tobacco Status: No Alcohol use: Reports: none Drug use: Reports: none Physical Exam - General Limitations: no limitations General appearance: alert, in no apparent distress Course Vital Signs Temperature 98.1 F 01/11/19 11:17 Pulse Rate 63 01/11/19 11:17 Respiratory Rate 16 01/11/19 11:17 Blood Pressure 211/126 01/11/19 11:17 O2 Sat by Pulse Oximetry 99 01/11/19 11:17 Temperature 98.1 F 01/11/19 11:17 Pulse Rate 63 01/11/19 11:17 Respiratory Rate 16 01/11/19 11:17 Blood Pressure 211/126 01/11/19 11:17 O2 Sat by Pulse Oximetry 99 01/11/19 11:17 Oxygen Delivery Oxygen Delivery Room Air
[2019-01-11 11:46] LABS: Basophils # 0.1 K/mcL (0.0-0.2); Basophils % 1.1 %; Eosinophils # 0.1 K/mcL (0.0-0.6); Eosinophils % 1.5 %; Hematocrit 48.9 % (37.5-50.1); Immature Granulocytes % 0.3 % (0-4); Lymphocytes # 1.3 K/mcL (0.6-4.6); Lymphocytes % 17.4 %; Mean Corpuscular HGB Conc 34.4 g/dL (31.6-35.5); Mean Corpuscular Hemoglobin 30.1 pg (28.0-33.3); Mean Corpuscular Volume 87.6 fL (83.0-100.0); Mean Platelet Volume 9.4 fL (9.4-12.4); Monocytes # 0.4 K/mcL (0.0-1.3); Monocytes % 5.5 %; Neutrophils # 5.4 K/mcL (1.6-8.9); Platelet Count 352 K/mcL (140-400); Red Blood Count 5.58 M/mcL (4.19-5.50); Red Cell Distribution Width 12.9 % (11.5-14.5); Segmented Neutrophils % 74.2 %
[2019-01-11 11:47] LABS: Hemoglobin 16.8 g/dL (12.9-16.9)
[2019-01-11 12:06] LABS: BUN/Creatinine Ratio 10 (6-26); Blood Urea Nitrogen 12 mg/dL (8-23); Calcium 9.7 mg/dL (8.6-10.3); Carbon Dioxide 25 mEq/L (23-29); Chloride 100 mEq/L (98-107); Glucose 115 mg/dL (70-105); Osmolality,Calculated 277 (280-300); Potassium 4.1 mEq/L (3.5-5.1); Sodium 133 mEq/L (136-145); eGFR For Non-African Americans 60 (> 60)
[2019-01-11 12:07] LABS: Troponin I < 0.03 ng/mL (< 0.04)
[2019-01-11] MEDS ORDERED: *HR* HYDROmorphone (PF) 1 MG/ML SYRINGE IVP ONE (12:17)
[2019-01-11] MEDS ORDERED: Naloxone 0.4 MG/ML INJ IVP PRN (12:58)
[2019-01-11] MEDS: Nitroglycerin 25 MG/250 ML INFUS..BTL IVC SCH (13:02)
[2019-01-11] MEDS ORDERED: *HR* Heparin 5,000 UNIT/ML VIAL IVP ONE ×2 (13:20→14:31)
[2019-01-11] MEDS ORDERED: *HR* Heparin 5,000 UNIT/ML VIAL IVP PRN ×4 (13:20→14:31)
[2019-01-11] MEDS ORDERED: Isovue-370 500 ML BOTTLE IVP ONE (13:27)
[2019-01-11] MEDS ORDERED: *HR* FentaNYL (PF) 100 MCG/2 ML VIAL IVP SCH (13:30)
[2019-01-11] MEDS ORDERED: Heparin 25,000 UNIT/250 ML D5W 25,000 UNIT/250 ML IV.SOLN IVC SCH ×2 (13:30→14:45)
--- NOTE | 2019-01-11 13:44 | Internal Med History&Physical ---
Date of Encounter: 01/11/19 Time of Encounter: 11:00 Internal Medicine - H&P: HPI Chief complaint: Chest pain History of present illness: Mr. Ro is a 68 year old male with pmh of uncontrolled hypertension, tobacco abuse, dyslipidemia, reports a heart attack 2 years ago (but no record of this) presenting with complaints of chest pain and shortness of breath for several days. He describes the pain as a heaviness in the left side of his chest with some radiation to the left arm. Pain is 10/10 and described as feeling like something sitting on his chest. Admits to chills. Denies any nausea, vomiting, fevers or any other acute symptoms. He says he has been compliant with his home meds In the ER, BP was noted to be 211/ 126 and he was started on a nitroglycerin d rip. He is being admitted for further management Past Med Surg Social Fam HX - Past Medical History Medical history: CHF, COPD, diabetes, GERD, GI bleed, hyperlipidemia, hypertension, myocardial infarction, other Additional medical history: diverticulitis Psychiatric history: anxiety - Past Surgical History Surgical History: no surgical history - Social History Smoking Status: Current every day smoker Smokeless Tobacco Status: No Alcohol use: none Drug use: none - Family History Mother Living Status: Hx Family Cardiac Disorders: Yes (HTN) Hx Family Respiratory Disorders: No Hx Family Cancer: Yes (Lung) Hx Family GI Disorders: No Hx Family Endocrine Disorder: No Hx Family Neuromuscular Disorders: No Hx Family Neurologic Disorders: Yes (CVA) Hx Family HEENT Disorders: No Hx Family Autoimmune Disorders: No Internal Medicine - H&P: Meds Albuterol Sulfate [Proventil Hfa] 2 puff IH QID PRN 05/13/15 [History] Polyethylene Glycol 3350 [MiraLAX] 17 gm PO DAILY PRN 05/13/15 [History] Ascorbate Calcium [Vitamin C] 500 mg PO BID 07/10/17 [History] Aspirin Enteric Coated [Aspirin EC] 81 mg PO DAILY 07/10/17 [History] Metformin HCl [Glucophage] 1,000 mg PO BID 07/10/17 [History] Quetiapine Fumarate [Seroquel] 50 mg PO HS #60 tablet 07/16/17 [Rx] ARIPiprazole [Abilify] 2 mg PO DAILY 09/11/17 [History] Duloxetine HCl [Cymbalta] 60 mg PO BID 09/11/17 [History] Gabapentin [Neurontin] 300 mg PO TID 09/11/17 [History] traZODone [TraZODone] 100 mg PO HS 09/11/17 [History] Lisinopril [Zestril] 40 mg PO DAILY 7 Days #14 tablet 01/11/18 [Rx] Omeprazole [PriLOSEC] 20 mg PO DAILY 7 Days #7 capsule. 01/11/18 [Rx] Gabapentin [Neurontin] 400 mg PO TID 12/05/18 [History] HydrOXYzine Pamoate [Vistaril] 50 mg PO DAILY 12/05/18 [History] Simvastatin [Zocor] 20 mg PO HS 12/05/18 [History] Tizanidine HCl 4 mg PO TID 12/05/18 [History] Allergy/AdvReac Type Severity Reaction Status Date / Time No Known Allergies Allergy Verified 12/05/18 20:18 All Systems PM: A 10-system review of systems was performed and is negative for pertinent f indings except as documented above in the HPI. - Constitutional Constitutional: no chills, no fever(s), no night sweats - EENT Eyes: no change in vision, no discharge, no pain, no photophobia Ears: no ear discharge, no ear pain, no tinnitus Nose, mouth and throat: no dysphagia, no nasal discharge, no neck pain, no sore throat - Cardiovascular Cardiovascular ROS IM: chest pain, dyspnea on exertion, no diaphoresis, no dyspnea, no lightheadedness, no palpitations, no syncope - Respiratory Respiratory: dyspnea, no cough, no wheezing, no excessive phlegm production - Gastrointestinal Gastrointestinal: no abdominal pain, no diarrhea, no hematemesis, no hematochezia, no melena, no nausea, no vomiting - Musculoskeletal Musculoskeletal ROS IM: no numbness, no tingling - Integumentary Integumentary IM: no rash, no unusual bruising - Neurological Neurological ROS: no confusion, no convulsions, no focal weakness, no numbness, no tingling, no tremor(s) - Hematologic/Lymphatic Hematologic/Lymphatic: no easy bruising - Constitutional Vitals: Temp Pulse Resp BP Pulse Ox 98.1 F 67 16 167/118 100 01/11/19 11:17 01/11/19 13:03 01/11/19 13:03 01/11/19 13:03 01/11/19 13:03 Exam: NAD - Head Head exam: Present: atraumatic, normocephalic - Eye Eye exam: Present: PERRL, conjuntiva pink, sclera anicteric Pupils: Present: PERRL - Neck Neck exam general surgery: Present: supple, trachea midline. Absent: lymphadenopathy - Respiratory Respiratory exam: Present: CTAB. Absent: accessory muscle use, rales, rhonchi, wheezes - Cardiovascular Cardiovascular exam: Present: RRR, +S1, +S2. Absent: diastolic murmur, gallop, rubs, systolic murmur - GI/Abdominal GI/Abdominal exam: Present: normal bowel sounds, soft, no peritoneal signs. Absent: distended, tenderness - Extremities Exam Extremities exam: Present: warm, radial pulses palpable and symmetrical. Absent: calf tenderness, cyanotic, pedal edema - Neurological Exam Neurological exam: Present: CN II-XII intact, oriented X3, no focal deficits. Absent: pronater drift, facial droop, speech deficit - Skin Skin exam: Present: dry, intact Internal Med - H&P Results - Labs CBC & Chem 7: 01/11/19 11:22 01/11/19 11:22 Labs: Short CBC 01/11/19 Range/Units 11:22 WBC 7.3 (4.3-11.1) K/mcL Hgb 16.8 D (12.9-16.9) g/dL Hct 48.9 (37.5-50.1) % Plt Count 352 (140-400) K/mcL Neutrophils # 5.4 (1.6-8.9) K/mcL BMP 01/11/19 11:22 Sodium 133 L Potassium 4.1 Chloride 100 Carbon Dioxide 25 BUN 12 Creatinine 1.21 Glucose 115 H Calcium 9.7 Cardiac Enzymes 01/11/19 Range/Units 11:22 Troponin I < 0.03 (< 0.04) ng/mL - Impressions ITS Impressions Chest X-Ray 01/11/19 11:31 IMPRESSION: No acute cardiopulmonary findings. D/ / Vivi Decker MD / Vivi Decker MD Interpreting Provider: Vivi Decker MD - Assessment and Plan (1) Hypertensive emergency Current Visit: Yes Status: Acute Assessment and plan: Pt comes in with complaints of chest pain and shortness of breath of 4 days du ration BP elevated in the 200s on arrival with ongoing chest pain Troponins negative, no EKG changes suggestive of ACSTrend troponins, obtain 2D echo, obtain CTA chest to r/o dissection Started on nitroglycerin drip. Cardiology consulted and recs appreciated (2) Chest pain Current Visit: Yes Status: Acute Assessment and plan: See #1. Query unstable angina vs aortic dissection vs demand from hypertensive emergency On nitro drip. CT chest pending. Will start on heparin drip, if CT chest is negative for dissection Qualifiers: Chest pain type: unspecified Qualified Code(s): R07.9 - Chest pain, unspecified (3) Dyslipidemia Current Visit: Yes Status: Acute Assessment and plan: Continue simvastatin (4) DVT prophylaxis Current Visit: Yes Status: Acute Assessment and plan: heparin - Time Spent With Patient Total time spent is greater than 50% in coordination of care (as documented) at patient's floor/unit and/or counseling patient:
[2019-01-11 15:11] LABS: Hemoglobin 15.4 g/dL (12.9-16.9); Mean Corpuscular Hemoglobin 30.4 pg (28.0-33.3); Mean Platelet Volume 9.4 fL (9.4-12.4); Platelet Count 340 K/mcL (140-400); Red Blood Count 5.06 M/mcL (4.19-5.50)
[2019-01-11] MEDS: *HR* FentaNYL (PF) 100 MCG/2 ML VIAL IVP PRN ×2 (15:14→23:05)
[2019-01-11 15:23] LABS: Heparin anti-factor XA UFH 0.03 IU/mL (0.30-0.70); Prothrombin Time 11.1 Seconds (9.4-12.1)
[2019-01-11] MEDS ORDERED: Labetalol 200 MG in D5% in Water 250 ML IVC SCH (15:30)
[2019-01-11] MEDS: Gabapentin 300 MG CAPSULE PO SCH ×2 (16:00→21:16)
[2019-01-11] MEDS ORDERED: *HR* LORazepam 2 MG/ML VIAL IVP ONE ×2 (16:50→19:58)
[2019-01-11] MEDS ORDERED: *HR* FentaNYL (PF) 100 MCG/2 ML VIAL IVP ONE (16:50)
[2019-01-11] MEDS: Ondansetron 4 MG/2 ML VIAL IVP PRN (18:25)
[2019-01-11] MEDS ORDERED: *HR* HYDROcodone/Acet 7.5/325 mg TABLET PO ONE (20:02)
[2019-01-11] MEDS: Acetaminophen 325 MG TABLET PO PRN (20:16)
[2019-01-11] MEDS: Ascorbic Acid 500 MG TABLET PO SCH (21:16)
[2019-01-11] MEDS: traZODone 50 MG TABLET PO SCH (21:17)
[2019-01-11] MEDS ORDERED: *HR* Promethazine 25 MG/ML VIAL ONE (21:19)
[2019-01-11] MEDS: *HR* Promethazine 25 MG/ML VIAL IVP PRN (21:30)
--- NOTE | 2019-01-11 21:57 | Event Note ---
Date of Encounter: 01/11/19 Time of Encounter: 19:42 Alerted by patient's nurse CRYSTAL Win that patient had been admitted for hypertensive urgency and was currently on nitroglycerin GTT. Nitroglycerin GTT now running at 40 mcs and current BP 175/117. Nurs one-time dose of 0.5 mg IVP Ativan ordered as well as Tylenol for mild pain and hydrocodone 7.5 mg for moderate pain due to headache. Nurse instructed to give Tylenol first e reports patient is reporting pounding headache 10/10 with some mild chest pain. Nurse reported educating patient on headaches that nitroglycerin causes. Pt. requesting something for his nerves. Went to see pt. who was sitting on the side of the bed holding his head. Reported headache 10/10. Fentanyl is ordered Q6HR. 0.5 mg IVP Ativan ordered once as well as by mouth Tylenol for mild pain and by mouth hydrocodone 7.5 mg for moderate pain. Nurse instructed to give patient Tylenol first for headache. Alerted at 21:03 the patient was now vomiting. Zofran 4 mg ordered every 6 and not due until 00:30. IVP Phenergan 12.5 mg every 4 hours when necessary for nausea and vomiting ordered. Nurse instructed to continue monitoring patient very closely and alert me immediately of any adverse changes.
[2019-01-12] MEDS: Ondansetron 4 MG/2 ML VIAL IVP PRN (00:53)
[2019-01-12] MEDS: *HR* Promethazine 25 MG/ML VIAL IVP PRN (02:15)
[2019-01-12] MEDS: Nitroglycerin 25 MG/250 ML INFUS..BTL IVC SCH ×2 (02:15→12:24)
[2019-01-12 04:19] LABS: Basophils % 0.3 %; Hematocrit 42.6 % (37.5-50.1); Hemoglobin 14.8 g/dL (12.9-16.9); Immature Granulocytes % 0.2 % (0-4); Lymphocytes % 7.7 %; Mean Corpuscular HGB Conc 34.7 g/dL (31.6-35.5); Mean Corpuscular Hemoglobin 30.3 pg (28.0-33.3); Mean Corpuscular Volume 87.1 fL (83.0-100.0); Mean Platelet Volume 9.4 fL (9.4-12.4); Monocytes # 0.5 K/mcL (0.0-1.3); Monocytes % 4.1 %; Neutrophils # 11.4 K/mcL (1.6-8.9); Platelet Count 339 K/mcL (140-400); Red Blood Count 4.89 M/mcL (4.19-5.50); Red Cell Distribution Width 13.2 % (11.5-14.5); Segmented Neutrophils % 87.7 %
[2019-01-12 04:37] LABS: BUN/Creatinine Ratio 11 (6-26); Blood Urea Nitrogen 13 mg/dL (8-23); Carbon Dioxide 22 mEq/L (23-29); Chloride 99 mEq/L (98-107); Glucose 153 mg/dL (70-105); Magnesium 2.1 mg/dL (1.6-2.6); Osmolality,Calculated 273 (280-300); Phosphorous 3.4 mg/dL (2.7-4.5); Potassium 3.8 mEq/L (3.5-5.1); Sodium 130 mEq/L (136-145); eGFR For Non-African Americans > 60 (> 60)
[2019-01-12] MEDS: *HR* FentaNYL (PF) 100 MCG/2 ML VIAL IVP PRN (05:10)
[2019-01-12] MEDS ORDERED: Regadenoson 0.4 MG/5 ML SYRINGE IVP ONE (06:08)
--- NOTE | 2019-01-12 08:00 | Internal Med Progress Note ---
<NarvaezAbbe S - Last Filed: 01/12/19 11:19> Hospitalist Progress Note - Encounter Date of Encounter: 01/12/19 Time of Encounter: 09:50 - Subjective Interval History: Pt seen at bedside. Having a lot of chest pain and headache this morning. States his CP is not getting any better. - Exam Vitals: Temp Pulse Resp BP Pulse Ox 98.1 F 77 20 188/104 96 01/12/19 07:38 01/12/19 07:38 01/12/19 07:38 01/12/19 07:38 01/12/19 07:38 Exam: general - NAD, laying in bed, pleasant HEENT - MMM, NCAT cardio - rrr, s1s2, cta lungs - ctab, not in respiratory distress abd - ntnd, soft, no rebound or guarding neuro - no fnd, cn2-12 intact psych - anxious appearing skin - warm, dry, intact - Assessment and Plan (1) Hypertensive emergency Current Visit: Yes Status: Acute Assessment and Plan: Patient present with c/o CP and SOB x 4 [place] - increasing headache - on arrival BP was 200's systolic + active chest pain Troponin negative EKG showed no ischemic changes CTA chest ruled out PE, aortic dissection Stress test 12/2017 was negative for ischemia TTE 12/2017- EF 65%. No significant valve disease. No hx of stents Plan: - ECHO pending - cardiology consulted, appreciate recommendations cardiology to restart home lisinopril heparin drip d/c - nitroglycerin drip, nicardipine drip - FEN: cardiac diet - dispo: ECHO report pending, control of blood pressure, CP relieved (2) Headache Current Visit: No Status: Acute Assessment and Plan: Likely secondary to nitro drip vs HTN emergency. BP control as above. (3) Diabetes Current Visit: No Status: Chronic Assessment and Plan: Hold home metformin. LDSS. Accuchecks. (4) Chest pain Current Visit: Yes Status: Acute Assessment and Plan: Likely secondary to hypertensive emergency. See plan as above. (5) DVT prophylaxis Current Visit: Yes Status: Acute Assessment and Plan: sq heparin (6) Dyslipidemia Current Visit: No Status: Chronic Assessment and Plan: continue simvastatin. (7) Tobacco abuse Current Visit: Yes Status: Acute Assessment and Plan: chronic. counsled. DVT Prophylaxis: heparin sq - Time Spent with Patient Total time spent is greater than 50% in coordination of care (as documented) at patient's floor/unit and/or counseling patient: 25 - 35 minutes Internal Medicine: Result - Labs CBC & Chem 7: 01/12/19 04:06 01/12/19 04:06 Labs: Short CBC 01/11/19 01/11/19 01/12/19 Range/Units 11:22 14:48 04:06 WBC 7.3 7.7 13.0 H D (4.3-11.1) K/mcL Hgb 16.8 D 15.4 14.8 (12.9-16.9) g/dL Hct 48.9 44.0 42.6 (37.5-50.1) % Plt Count 352 340 339 (140-400) K/mcL Neutrophils # 5.4 11.4 H (1.6-8.9) K/mcL BMP 01/11/19 01/12/19 11:22 04:06 Sodium 133 L 130 L Potassium 4.1 3.8 Chloride 100 99 Carbon Dioxide 25 22 L BUN 12 13 Creatinine 1.21 1.16 Glucose 115 H 153 H Calcium 9.7 9.0 Cardiac Enzymes 01/11/19 01/11/19 01/11/19 Range/Units 11:22 14:48 21:14 Troponin I < 0.03 < 0.03 < 0.03 (< 0.04) ng/mL - ABG Interpretation ABG results: PT/INR, D-dimer PT 11.1 Seconds (9.4-12.1) 01/11/19 14:48 - Impressions Impressions Chest X-Ray 01/11/19 11:31 IMPRESSION: No acute cardiopulmonary findings. D/ / Vivi Decker MD / Vivi Decker MD Interpreting Provider: Vivi Decker MD Chest CTA 01/11/19 13:27 IMPRESSION: No evidence of pulmonary embolism. Near complete resolution of the previously noted airspace disease in the left lower lobe. D/ / Roberto Briceño MD / Roberto Briceño MD Interpreting Provider: Roberto Briceño MD Consult Discharge Plan - Plan Referrals: Praeneth Ruiz MD [Primary Care Provider] - <Cristian Gordon - Last Filed: 01/12/19 12:31> Hospitalist Progress Note - Encounter Date of Encounter: 01/12/19 - Exam Vitals: Temp Pulse Resp BP Pulse Ox 98.2 F 88 18 146/101 96 01/12/19 11:19 01/12/19 11:19 01/12/19 11:19 01/12/19 11:19 01/12/19 11:19 - Assessment and Plan (1) Chest pain Current Visit: Yes Status: Acute (2) DVT prophylaxis Current Visit: Yes Status: Acute (3) Hypertensive emergency Current Visit: Yes Status: Acute (4) Dyslipidemia Current Visit: No Status: Chronic - Time Spent with Patient Total time spent is greater than 50% in coordination of care (as documented) at patient's floor/unit and/or counseling patient: Internal Medicine: Result - Labs CBC & Chem 7: 01/12/19 04:06 01/12/19 04:06 Labs: Short CBC 01/11/19 01/12/19 Range/Units 14:48 04:06 WBC 7.7 13.0 H D (4.3-11.1) K/mcL Hgb 15.4 14.8 (12.9-16.9) g/dL Hct 44.0 42.6 (37.5-50.1) % Plt Count 340 339 (140-400) K/mcL Neutrophils # 11.4 H (1.6-8.9) K/mcL BMP 01/12/19 04:06 Sodium 130 L Potassium 3.8 Chloride 99 Carbon Dioxide 22 L BUN 13 Creatinine 1.16 Glucose 153 H Calcium 9.0 Cardiac Enzymes 01/11/19 01/11/19 Range/Units 14:48 21:14 Troponin I < 0.03 < 0.03 (< 0.04) ng/mL - ABG Interpretation ABG results: PT/INR, D-dimer PT 11.1 Seconds (9.4-12.1) 01/11/19 14:48 - Impressions Impressions Echocardiogram Limited Views 01/11/19 13:08 Impressions: LVEF 60-65%. Normal LV chamber size, wall thickness and function. Left Ventricular Wall Motion: Rest Echo Findings All wall segments showed normal motion. Findings: Study Quality * Technically adequate exam. ECG Findings * Normal sinus rhythm. Left Ventricle * LVEF 60-65%. * Normal LV chamber size, wall thickness and function. Right Ventricle * Normal right ventricular structure and function. Aorta * Normally sized aortic root. Pericardium * The pericardium appears normal. IVC * Normal IVC dimensions and inspiratory collapse. Chest CTA 01/11/19 13:27 IMPRESSION: No evidence of pulmonary embolism. Near complete resolution of the previously noted airspace disease in the left lower lobe. D/ / Roberto Briceoñ MD / Roberto Briceño MD Interpreting Provider: Roberto Briceño MD - Attending Attestation I examined this patient and my medical decision-making was reviewed with the Resident Physician. I agree with the documented findings, disposition and treatment plan as described except to the extent set forth below. <Abbe Narvaez - Last Filed: 01/12/19 11:19> (2) Headache Qualifiers: Headache type: unspecified Headache chronicity pattern: acute headache Intractability: not intractable Qualified Code(s): R51 - Headache (3) Diabetes Qualifiers: Diabetes mellitus type: type 2 Diabetes mellitus penitentiary insulin use: without long term care pharmacist use Diabetes mellitus complication status: with neurologic complications Diabetes mellitus complication detail: with polyneuropathy Qualified Code(s): E11.42 - Type 2 diabetes mellitus with diabetic polyneuropathy (4) Chest pain Qualifiers: Chest pain type: unspecified Qualified Code(s): R07.9 - Chest pain, unspecified <Cristian Gordon - Last Filed: 01/12/19 12:31> (1) Chest pain Qualifiers: Chest pain type: unspecified Qualified Code(s): R07.9 - Chest pain, unspecified
--- NOTE | 2019-01-12 08:56 | Cardiology Consult Note ---
<Alvaro Baker - Last Filed: 01/12/19 08:54> Date of Encounter: 01/12/19 Time of Encounter: 08:54 Assessment and Plan (1) Hypertensive emergency Current Visit: Yes Status: Acute Hypertensive emergency. Reports hospitalization for b/p in past. Currently on IV NTG gtt at 45 mcg/HR. He also received IV labetalol and PRN IV hydralizine. B/p 180/100. Restart home dose lisinopril. If b/p without improvement add norvasc. Avoid sudden drop in b/p. (2) Chest pain Current Visit: Yes Status: Acute Atypical chest pain in the setting of hypertensive urgency. Pain is constant and not releived with NTG. Pain also increases with deep breaths and exertion. Troponin negative x3. EKG shows NSR with no acute ST changes. CTA chest negative for PE or dissection. Stress test 12/2017 was negative for ischemia. TTE 12/2017- EF 65%. No significant valve disease. Reports h/o possible WI three years ago. Denies prior LHC or cardiac stents. Recommend better blood pressure control and re-evaluate symptoms. Check limited TTE. No indication for heparin gtt. Qualifiers: Chest pain type: unspecified Qualified Code(s): R07.9 - Chest pain, unspecified Discussion w patient/family: The assessment and plan as outlined above was discussed with the patient and/or family members who expressed understanding and agreement. All questions were answered. Thank you for involving us in the care of your patient. Please call with any questions. History of Present Illness Consult date: 01/12/19 Requesting physician: Coreen Kaur Consult reason: Chest pain Chief complaint: Chest pain for 2 days History of present illness: Mr. Ro is a 68 year old male with past medical history significant for HTN, DM, possible WI three yeras ago, and prior tobacco use who presents with c/o chest pain for the past two days. describes pain as a pressure radiating to his neck and Jaw. Pain increases with exertion. The pain is constant and not relieved with NTG GTT at 45 mcg/ HR. He was found to have elevated blood pressure (170/100) on admission and remains elevated despite NTG IV gtt. On my exam he continues to have left sided chest pressure that increases with deep breath. Also c/o soreness with palpation. C/o headache. Denies SOB or palpitations. Past Med Surg Social Fam HX - Past Medical History Medical history: CHF, COPD, diabetes, GERD, GI bleed, hyperlipidemia, hypertension, myocardial infarction, other Additional medical history: diverticulitis Psychiatric history: anxiety - Past Surgical History Surgical History: no surgical history - Social History Smoking Status: Current every day smoker Smokeless Tobacco Status: No Alcohol use: none Drug use: none - Family History Mother Living Status: Hx Family Cardiac Disorders: Yes (HTN) Hx Family Respiratory Disorders: No Hx Family Cancer: Yes (Lung) Hx Family GI Disorders: No Hx Family Endocrine Disorder: No Hx Family Neuromuscular Disorders: No Hx Family Neurologic Disorders: Yes (CVA) Hx Family HEENT Disorders: No Hx Family Autoimmune Disorders: No Medications and Allergies Albuterol Sulfate [Proventil Hfa] 2 puff IH QID PRN 05/13/15 [History] Polyethylene Glycol 3350 [MiraLAX] 17 gm PO DAILY PRN 05/13/15 [History] Ascorbate Calcium [Vitamin C] 500 mg PO BID 07/10/17 [History] Aspirin Enteric Coated [Aspirin EC] 81 mg PO DAILY 07/10/17 [History] Metformin HCl [Glucophage] 1,000 mg PO BID 07/10/17 [History] Quetiapine Fumarate [Seroquel] 50 mg PO HS #60 tablet 07/16/17 [Rx] ARIPiprazole [Abilify] 2 mg PO DAILY 09/11/17 [History] Duloxetine HCl [Cymbalta] 60 mg PO BID 09/11/17 [History] Gabapentin [Neurontin] 300 mg PO TID 09/11/17 [History] traZODone [TraZODone] 100 mg PO HS 09/11/17 [History] Lisinopril [Zestril] 40 mg PO DAILY 7 Days #14 tablet 01/11/18 [Rx] Omeprazole [PriLOSEC] 20 mg PO DAILY 7 Days #7 capsule. 01/11/18 [Rx] Gabapentin [Neurontin] 400 mg PO TID 12/05/18 [History] HydrOXYzine Pamoate [Vistaril] 50 mg PO DAILY 12/05/18 [History] Simvastatin [Zocor] 20 mg PO HS 12/05/18 [History] Tizanidine HCl 4 mg PO TID 12/05/18 [History] 3 Allergy/AdvReac Type Severity Reaction Status Date / Time No Known Allergies Allergy Verified 12/05/18 20:18 All Systems Review: The remainder of the systems were reviewed and are negative Physical Examination Vital Signs, Last 4 Hours Temp Pulse Resp BP Pulse Ox 01/12/19 08:19 173/113 97 01/12/19 08:15 97 01/12/19 07:38 98.1 F 77 20 188/104 96 01/12/19 06:45 81 189/124 01/12/19 06:30 76 183/115 01/12/19 06:00 75 156/114 01/12/19 05:30 69 175/110 General: Conversant, No Apparent Distress HEENT: Atraumatic, Normocephaly, Mucus Membranes Moist Neck: No JVD, Normal carotid pulses Cardiac: Reg Rate and Rhythm, Normal S1 and S2, No Murmur Lungs: Normal Breath Sounds, No Wheeze, Rales, Rhonchi Neuro: Alert and responsive, No focal deficits noted Abdomen: Soft, Non-Tender Skin: No rashes noted on visualized skin Musculoskeletal: No Chest Wall Tenderness Extremities: No Clubbing, No Cyanosis, No Edema, Normal Pulses Results 01/12/19 04:06 01/12/19 04:06 Lab Results 01/11/19 01/11/19 01/11/19 11:22 11:22 11:22 WBC 7.3 Hgb 16.8 D Hct 48.9 Plt Count 352 INR 1.0 APTT 33.0 Sodium 133 L Potassium 4.1 Chloride 100 Carbon Dioxide 25 BUN 12 Creatinine 1.21 Glucose 115 H Calcium 9.7 Magnesium Troponin I < 0.03 01/11/19 01/11/19 01/11/19 14:48 14:48 14:48 WBC 7.7 Hgb 15.4 Hct 44.0 Plt Count 340 INR 1.0 APTT Sodium Potassium Chloride Carbon Dioxide BUN Creatinine Glucose Calcium Magnesium Troponin I < 0.03 01/11/19 01/12/19 01/12/19 21:14 04:06 04:06 WBC 13.0 H D Hgb 14.8 Hct 42.6 Plt Count 339 INR APTT Sodium 130 L Potassium 3.8 Chloride 99 Carbon Dioxide 22 L BUN 13 Creatinine 1.16 Glucose 153 H Calcium 9.0 Magnesium 2.1 Troponin I < 0.03 - Imaging and Cardiology Stress Test: report reviewed Echo: report reviewed - EKG Interpretation EKG results cardiology: personally reviewed Consult Discharge Plan - Plan Referrals: Praneeth Ruiz MD [Primary Care Provider] - <ElderUrbano A - Last Filed: 01/12/19 13:44> Date of Encounter: 01/12/19 - Attending Attestation I have personally performed a face to face evaluation on this patient. I have reviewed and agree with the documented findings and care plan as documented by the SAMPLE GRADER. History and Exam by me shows: 68 year-old gentleman with history of diabetes, hypertension, cigarette smoker, admitted with hypertensive urgency, and atypical chest pain. He had a pharmacological stress test a year ago which was negative for ischemia. AAOX3 in NAD at the bedside Hemodynamically stable Cardiopulmonary exam revealed S1, S2, no murmur; clear lungs Rhythm reviewed - sinus rhythm Echo preserved EF, no significant valvular heart disease Impression/plan: Hypertensive urgencybetter controlled now. Recommend to wean off IV drips. Start labetalol 100 mg twice daily; continue lisinopril 40 mg daily. Continue aspirin 81 mg daily and moderate intensity statin. If chest pain persists after blood pressure control, consider ischemic workup. Urbano Erickson MD FAC Assessment and Plan Discussion w patient/family: The assessment and plan as outlined above was discussed with the patient and/or family members who expressed understanding and agreement. All questions were answered. Thank you for involving us in the care of your patient. Please call with any questions. History of Present Illness History of present illness: Mr. Ro is a 68 year old male All Systems Review: The remainder of the systems were reviewed and are negative Physical Examination Vital Signs, Last 4 Hours Temp Pulse Resp BP Pulse Ox 01/12/19 12:38 141/92 01/12/19 11:19 98.2 F 88 18 146/101 96 01/12/19 10:45 82 18 147/88 91 01/12/19 10:30 78 140/83 93 01/12/19 10:15 90 147/96 01/12/19 10:00 78 148/88 01/12/19 09:45 87 20 188/112 97 Results 01/12/19 04:06 01/12/19 04:06 Lab Results 01/11/19 01/11/19 01/11/19 14:48 14:48 14:48 WBC 7.7 Hgb 15.4 Hct 44.0 Plt Count 340 INR 1.0 Sodium Potassium Chloride Carbon Dioxide BUN Creatinine Glucose Calcium Magnesium Troponin I < 0.03 01/11/19 01/12/19 01/12/19 21:14 04:06 04:06 WBC 13.0 H D Hgb 14.8 Hct 42.6 Plt Count 339 INR Sodium 130 L Potassium 3.8 Chloride 99 Carbon Dioxide 22 L BUN 13 Creatinine 1.16 Glucose 153 H Calcium 9.0 Magnesium 2.1 Troponin I < 0.03
[2019-01-12] MEDS: niCARdipine 40 MG/200 ML MLS IVC SCH ×2 (09:37→21:33)
[2019-01-12] MEDS: Acetaminophen 325 MG TABLET PO PRN (09:40)
[2019-01-12] MEDS: Aspirin Enteric Coated 81 MG Tablet PO SCH (09:40)
[2019-01-12] MEDS: ARIPiprazole 2 MG TABLET PO SCH (09:40)
[2019-01-12] MEDS: Ascorbic Acid 500 MG TABLET PO SCH ×2 (09:40→21:32)
[2019-01-12] MEDS: Gabapentin 300 MG CAPSULE PO SCH ×3 (09:41→21:32)
[2019-01-12] MEDS: Lisinopril 20 MG TABLET PO SCH (09:44)
--- NOTE | 2019-01-12 09:54 | Electrocardiograph Report ---
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
--- NOTE | 2019-01-12 09:54 | Electrocardiograph Report ---
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
[2019-01-12] MEDS ORDERED: Dextrose Gel 15 GM/37.5 ML TUBE PO PRN ×2 (09:57)
[2019-01-12] MEDS ORDERED: *HR* Dextrose 50 % in Water (Syg) 50 ML SYRINGE IVP PRN (09:57)
[2019-01-12] MEDS ORDERED: D5% in Water 1,000 ML IVC PRN (09:57)
[2019-01-12] MEDS: Insulin LISPRO 300 UNITS/3 ML VIAL SQ SCH ×3 (12:43→21:33)
[2019-01-12 16:56] LABS: Amphetamine Screen,Urine Negative ng/mL (Cutoff=1000); Barbiturate Screen,Urine Negative ng/mL (Cutoff=200); Benzodiazepines Screen,Urine Negative ng/mL (Cutoff=200); Cannabinoid Screen,Urine Negative ng/mL (Cutoff = 50); Cocaine Screen,Urine Negative ng/mL (Cutoff= 300); Opiate Screen,Urine Positive ng/mL (Cutoff=300); Phencyclidine Screen,Urine Negative ng/mL (Cutoff=25)
[2019-01-12] MEDS: *HR* Heparin 5,000 UNIT/ML VIAL SQ SCH (17:26)
[2019-01-12] MEDS: traZODone 50 MG TABLET PO SCH (21:32)
[2019-01-13] MEDS: niCARdipine 40 MG/200 ML MLS IVC SCH (01:11)
[2019-01-13 06:07] LABS: Hematocrit 43.6 % (37.5-50.1); Hemoglobin 15.4 g/dL (12.9-16.9); Mean Corpuscular HGB Conc 35.3 g/dL (31.6-35.5); Mean Corpuscular Hemoglobin 30.8 pg (28.0-33.3); Mean Corpuscular Volume 87.2 fL (83.0-100.0); Mean Platelet Volume 9.2 fL (9.4-12.4); Platelet Count 297 K/mcL (140-400); Red Cell Distribution Width 13.3 % (11.5-14.5)
[2019-01-13] MEDS: *HR* Heparin 5,000 UNIT/ML VIAL SQ SCH ×2 (06:24→18:05)
[2019-01-13 06:27] LABS: BUN/Creatinine Ratio 14 (6-26); Blood Urea Nitrogen 15 mg/dL (8-23); Calcium 9.5 mg/dL (8.6-10.3); Carbon Dioxide 22 mEq/L (23-29); Chloride 99 mEq/L (98-107); Glucose 141 mg/dL (70-105); Osmolality,Calculated 279 (280-300); Potassium 3.6 mEq/L (3.5-5.1); Sodium 133 mEq/L (136-145); eGFR For Non-African Americans > 60 (> 60)
[2019-01-13] MEDS: Insulin LISPRO 300 UNITS/3 ML VIAL SQ SCH ×4 (08:28→21:35)
[2019-01-13] MEDS: Gabapentin 300 MG CAPSULE PO SCH ×3 (08:29→21:44)
[2019-01-13] MEDS: Lisinopril 20 MG TABLET PO SCH (08:29)
[2019-01-13] MEDS: Aspirin Enteric Coated 81 MG Tablet PO SCH (08:29)
[2019-01-13] MEDS: ARIPiprazole 2 MG TABLET PO SCH (08:30)
[2019-01-13] MEDS: Ascorbic Acid 500 MG TABLET PO SCH ×2 (08:30→21:44)
--- NOTE | 2019-01-13 08:31 | Internal Med Progress Note ---
<Abbe Narvaez S - Last Filed: 01/13/19 10:46> Hospitalist Progress Note - Encounter Date of Encounter: 01/13/19 Time of Encounter: 08:28 - Subjective Interval History: Pt seen at bedside. Headache improving. Still c/o dull substernal CP, without much improvement. - Exam Vitals: Temp Pulse Resp BP Pulse Ox 97.8 F 59 18 120/86 94 01/13/19 07:12 01/13/19 07:12 01/13/19 07:12 01/13/19 07:12 01/13/19 07:12 Exam: general - NAD, laying in bed, pleasant HEENT - MMM, NCAT cardio - rrr, s1s2, cta lungs - ctab, not in respiratory distress abd - ntnd, soft, no rebound or guarding neuro - no fnd, cn2-12 intact psych - anxious appearing skin - warm, dry, intact - Assessment and Plan (1) Hypertensive emergency Current Visit: Yes Status: Acute Assessment and Plan: Patient present with c/o CP and SOB x 4 [place] - increasing headache - on arrival BP was 200's systolic + active chest pain Troponin negative EKG showed no ischemic changes CTA chest ruled out PE, aortic dissection Stress test 12/2017 was negative for ischemia TTE 12/2017- EF 65%. No significant valve disease. No hx of stents ECHO LVEF 60-65% with normal LV chamber size, wall thickness and function. BP improving to 120's-130's systolic, HR in the 60-70's Pt still c/o chest pain that has had little improvement Plan: - cardiology consulted, appreciate recommendations cardiology to restart home lisinopril heparin drip d/c ?ischemic workup - continue nitro drip begin to wean down --> SBP no higher than 160's communication order to nursing staff in - nifidipine drip d/c 01/13 - FEN: cardiac diet - dispo: cardiology recommendations, CP relieved, to return home when stable for discharge (2) Headache Current Visit: Yes Status: Acute Assessment and Plan: Likely secondary to nitro drip vs HTN emergency. BP control as above. Improving. (3) Diabetes Current Visit: No Status: Chronic Assessment and Plan: Hold home metformin. LDSS. Accuchecks. (4) Chest pain Current Visit: Yes Status: Acute Assessment and Plan: Likely secondary to hypertensive emergency. See plan as above. (5) DVT prophylaxis Current Visit: Yes Status: Acute Assessment and Plan: sq heparin (6) Dyslipidemia Current Visit: No Status: Chronic Assessment and Plan: continue simvastatin. (7) Tobacco abuse Current Visit: Yes Status: Acute Assessment and Plan: chronic. counsled. encouraged cessation. DVT Prophylaxis: heparin sq - Time Spent with Patient Total time spent is greater than 50% in coordination of care (as documented) at patient's floor/unit and/or counseling patient: less than 15 minutes Plan of Care Discussed with: nurse Internal Medicine: Result - Labs CBC & Chem 7: 01/13/19 05:57 01/13/19 05:57 Labs: Short CBC 01/13/19 Range/Units 05:57 WBC 8.6 (4.3-11.1) K/mcL Hgb 15.4 (12.9-16.9) g/dL Hct 43.6 (37.5-50.1) % Plt Count 297 (140-400) K/mcL BMP 01/13/19 05:57 Sodium 133 L Potassium 3.6 Chloride 99 Carbon Dioxide 22 L BUN 15 Creatinine 1.06 Glucose 141 H Calcium 9.5 - ABG Interpretation ABG results: PT/INR, D-dimer PT 11.1 Seconds (9.4-12.1) 01/11/19 14:48 - Impressions Impressions Echocardiogram Limited Views 01/11/19 13:08 Impressions: LVEF 60-65%. Normal LV chamber size, wall thickness and function. Left Ventricular Wall Motion: Rest Echo Findings All wall segments showed normal motion. Findings: Study Quality * Technically adequate exam. ECG Findings * Normal sinus rhythm. Left Ventricle * LVEF 60-65%. * Normal LV chamber size, wall thickness and function. Right Ventricle * Normal right ventricular structure and function. Aorta * Normally sized aortic root. Pericardium * The pericardium appears normal. IVC * Normal IVC dimensions and inspiratory collapse. Consult Discharge Plan - Plan Referrals: Praneeth Ruiz MD [Primary Care Provider] - 01/27/19 10:30 am <Cristian Gordon - Last Filed: 01/13/19 12:37> Hospitalist Progress Note - Encounter Date of Encounter: 01/13/19 - Exam Vitals: Temp Pulse Resp BP Pulse Ox 97.6 F 55 18 107/81 96 01/13/19 10:58 01/13/19 10:58 01/13/19 10:58 01/13/19 10:58 01/13/19 10:58 - Assessment and Plan (1) Chest pain Current Visit: Yes Status: Acute (2) DVT prophylaxis Current Visit: Yes Status: Acute (3) Hypertensive emergency Current Visit: Yes Status: Acute (4) Dyslipidemia Current Visit: No Status: Chronic - Time Spent with Patient Total time spent is greater than 50% in coordination of care (as documented) at patient's floor/unit and/or counseling patient: Internal Medicine: Result - Labs CBC & Chem 7: 01/13/19 05:57 01/13/19 05:57 Labs: Short CBC 01/13/19 Range/Units 05:57 WBC 8.6 (4.3-11.1) K/mcL Hgb 15.4 (12.9-16.9) g/dL Hct 43.6 (37.5-50.1) % Plt Count 297 (140-400) K/mcL BMP 01/13/19 05:57 Sodium 133 L Potassium 3.6 Chloride 99 Carbon Dioxide 22 L BUN 15 Creatinine 1.06 Glucose 141 H Calcium 9.5 - ABG Interpretation ABG results: PT/INR, D-dimer PT 11.1 Seconds (9.4-12.1) 01/11/19 14:48 - Attending Attestation I examined this patient and my medical decision-making was reviewed with the Resident Physician. I agree with the documented findings, disposition and treatment plan as described except to the extent set forth below. <Abbe Narvaez S - Last Filed: 01/13/19 10:46> (2) Headache Qualifiers: Headache type: unspecified Headache chronicity pattern: acute headache Intractability: not intractable Qualified Code(s): R51 - Headache (3) Diabetes Qualifiers: Diabetes mellitus type: type 2 Diabetes mellitus nursing home insulin use: without nursing home use Diabetes mellitus complication status: with neurologic complications Diabetes mellitus complication detail: with polyneuropathy Qualified Code(s): E11.42 - Type 2 diabetes mellitus with diabetic polyneuropathy (4) Chest pain Qualifiers: Chest pain type: unspecified Qualified Code(s): R07.9 - Chest pain, unspecified <Cristian Gordon - Last Filed: 01/13/19 12:37> (1) Chest pain Qualifiers: Chest pain type: unspecified Qualified Code(s): R07.9 - Chest pain, unspecified
--- NOTE | 2019-01-13 11:12 | Cardiology Progress Note ---
Date of Encounter: 01/13/19 Time of Encounter: 08:30 Assessment and Plan (1) Hypertensive emergency Current Visit: Yes Status: Acute Hypertensive emergency. Reports hospitalization for b/p in past. Initially treated with IV NTG gtt at 45 mcg/HR and cardene gtt, IV hydralizine, and IV labatalol. Possible non-compliance. He is not following regularly with PCP. IV medications weaned off. Continue lisinopril and labetalol. (2) Chest pain Current Visit: Yes Status: Acute Atypical chest pain in the setting of hypertensive urgency. Pain is constant and not relieved with NTG IV at high dose. Pain also increases with deep breaths and exertion. Troponin negative x3. EKG shows NSR with no acute ST changes. CTA chest negative for PE or dissection. Stress test 12/2017 was negative for ischemia. TTE 12/2017- EF 65%. No significant valve disease. Reports h/o possible LA three years ago. Denies prior LHC or cardiac stents. TTE completed yesterday shows preserved EF. Unfortunately he continues to have chest pain. Consider alternative pain medication. I will discuss further ischemic evaluation recommendations with Dr. Friedman. Pt already had breakfast today. NPO after midnight. Qualifiers: Chest pain type: unspecified Qualified Code(s): R07.9 - Chest pain, unspecified Discussion w patient/family: The assessment and plan as outlined above was discussed with the patient and/or family members who expressed understanding and agreement. All questions were answered. Thank you for involving us in the care of your patient. Please call with any questions. Subjective Principal diagnosis: hypertensive urgency Interval history: Mr. Ro is sleeping on my encounter but wakes easily. Appears to be comfortable. C/o left sided chest pressure that is continuous. Denies releif despite NTG gtt at high dose or with b/p improvement. Chest mildly tender to palpation. Objective Vital Signs, Last 4 Hours Temp Pulse Resp BP Pulse Ox 01/13/19 10:58 97.6 F 55 18 107/81 96 01/13/19 07:12 97.8 F 59 18 120/86 94 General: Conversant, No Apparent Distress HEENT: Atraumatic, Normocephaly, Mucus Membranes Moist Neck: No JVD, Normal carotid pulses Cardiac: Reg Rate and Rhythm, Normal S1 and S2, No Murmur Lungs: Normal Breath Sounds, No Wheeze, Rales, Rhonchi Neuro: Alert and responsive, No focal deficits noted Abdomen: Soft, Non-Tender Skin: No rashes noted on visualized skin Musculoskeletal: Other (Chest wall mildly tender to palpation.) Extremities: No Clubbing, No Cyanosis, No Edema, Normal Pulses Results 01/13/19 05:57 01/13/19 05:57 Lab Results 01/13/19 01/13/19 05:57 05:57 WBC 8.6 Hgb 15.4 Hct 43.6 Plt Count 297 Sodium 133 L Potassium 3.6 Chloride 99 Carbon Dioxide 22 L BUN 15 Creatinine 1.06 Glucose 141 H Calcium 9.5 - Imaging and Cardiology Echo: report reviewed - EKG Interpretation EKG results cardiology: personally reviewed Consult Discharge Plan - Plan Referrals: Praneeth Ruiz MD [Primary Care Provider] - 01/27/19 10:30 am
[2019-01-13] MEDS: traZODone 50 MG TABLET PO SCH (21:44)
[2019-01-14 04:35] LABS: Calcium 9.3 mg/dL (8.6-10.3); Potassium 3.7 mEq/L (3.5-5.1)
[2019-01-14] MEDS: *HR* Heparin 5,000 UNIT/ML VIAL SQ SCH ×2 (06:04→17:59)
[2019-01-14] MEDS ORDERED: Regadenoson 0.4 MG/5 ML SYRINGE IVP ONE (06:55)
--- NOTE | 2019-01-14 07:56 | Internal Med Progress Note ---
<BriceAbbe S - Last Filed: 01/14/19 11:19> Hospitalist Progress Note - Encounter Date of Encounter: 01/14/19 Time of Encounter: 08:59 - Subjective Interval History: Pt seen at bedside. He went for stress test this AM. He denies worsening chest pain or SOB. He is comfortable. - Exam Vitals: Temp Pulse Resp BP Pulse Ox 97.5 F L 55 17 98/50 95 01/14/19 04:31 01/14/19 04:31 01/14/19 04:31 01/14/19 04:31 01/14/19 04:31 Exam: general - NAD, laying in bed, pleasant HEENT - MMM, NCAT cardio - rrr, s1s2, cta lungs - ctab, not in respiratory distress abd - ntnd, soft, no rebound or guarding neuro - no fnd, cn2-12 intact psych - anxious appearing skin - warm, dry, intact - Assessment and Plan (1) JASON (acute kidney injury) Current Visit: Yes Status: Acute Assessment and Plan: Pt with admission creatinine 1.21, today 1.65. Pt did have contrast exposure on admission for CTA, likely secondary to contrast. - also has c/o difficulty urinating and some burning with urination Plan: - UA pending - bladder scan pending - retroperitoneal US pending - continue to monitor renal fxn - avoid nephrotoxins - start 75cc/hr NS IVF - urine creatinine, eosinophils and sodium pending (2) Hypertensive emergency Current Visit: Yes Status: Resolved Assessment and Plan: Patient present with c/o CP and SOB x 4 hidalgo - increasing headache - on arrival BP was 200's systolic + active chest pain Troponin negative EKG showed no ischemic changes CTA chest ruled out PE, aortic dissection Stress test 12/2017 was negative for ischemia TTE 12/2017- EF 65%. No significant valve disease. No hx of stents ECHO LVEF 60-65% with normal LV chamber size, wall thickness and function. BP improving to 110-120's, HR in 50-60's Pt reports improvement of CP Plan: - cardiology consulted, appreciate recommendations cardiology to restart home lisinopril heparin drip d/c awaiting stress test results - nitro and nifedipine drip d/c 01/13 - FEN: cardiac diet - dispo: cardiology recommendations, stress test results pending, to return home when stable for discharge (3) Headache Current Visit: Yes Status: Resolved Assessment and Plan: Likely secondary to nitro drip vs HTN emergency. BP control as above. Resolved. (4) Diabetes Current Visit: No Status: Chronic Assessment and Plan: Hold home metformin. LDSS. Accuchecks. (5) Chest pain Current Visit: Yes Status: Resolved Assessment and Plan: Likely secondary to hypertensive emergency. See plan as above. Resolved. (6) DVT prophylaxis Current Visit: Yes Status: Acute Assessment and Plan: sq heparin (7) Dyslipidemia Current Visit: No Status: Chronic Assessment and Plan: con't simvastatin. (8) Tobacco abuse Current Visit: Yes Status: Acute Assessment and Plan: chronic. counsled. encouraged cessation. DVT Prophylaxis: heparin sq - Time Spent with Patient Total time spent is greater than 50% in coordination of care (as documented) at patient's floor/unit and/or counseling patient: less than 15 minutes Plan of Care Discussed with: patient Internal Medicine: Result - Labs CBC & Chem 7: 01/13/19 05:57 01/14/19 03:13 Labs: BMP 01/14/19 03:13 Sodium 134 L Potassium 3.7 Chloride 100 Carbon Dioxide 26 BUN 33 H Creatinine 1.65 H Glucose 134 H Calcium 9.3 - ABG Interpretation ABG results: PT/INR, D-dimer PT 11.1 Seconds (9.4-12.1) 01/11/19 14:48 Consult Discharge Plan - Plan Referrals: Praneeth Ruiz MD [Primary Care Provider] - 01/27/19 10:30 am <Isabelle Hoang - Last Filed: 01/14/19 11:33> Hospitalist Progress Note - Encounter Date of Encounter: 01/14/19 - Exam Vitals: Temp Pulse Resp BP Pulse Ox 98.1 F 57 18 114/77 99 01/14/19 08:48 01/14/19 08:48 01/14/19 08:48 01/14/19 08:48 01/14/19 08:48 - Assessment and Plan (1) Chest pain Current Visit: Yes Status: Resolved (2) DVT prophylaxis Current Visit: Yes Status: Acute (3) Hypertensive emergency Current Visit: Yes Status: Resolved (4) Dyslipidemia Current Visit: No Status: Chronic - Time Spent with Patient Total time spent is greater than 50% in coordination of care (as documented) at patient's floor/unit and/or counseling patient: Internal Medicine: Result - Labs CBC & Chem 7: 01/13/19 05:57 01/14/19 03:13 Labs: BMP 01/14/19 03:13 Sodium 134 L Potassium 3.7 Chloride 100 Carbon Dioxide 26 BUN 33 H Creatinine 1.65 H Glucose 134 H Calcium 9.3 - ABG Interpretation ABG results: PT/INR, D-dimer PT 11.1 Seconds (9.4-12.1) 01/11/19 14:48 - Attending Attestation I examined this patient and my medical decision-making was reviewed with the Resident Physician Dr Narvaez. I agree with the documented findings, disposition and treatment plan as described except to the extent set forth below. Mr Ro is admitted with chest pain and hypertensive emergency awake, mild chest pain, substernal, mild heaviness, no n/v/diaphoresis or sob. No headache, vision changes or dizziness. admits to urinary retention in past, sensation of not fully emptying bladder and dysuria recently. gen- alert, awake,appears stated age cv- reg rate and rhythm, normal s1,s2, no murmurs appreciated, no le edema lungs- ctabl, no wheezing, rhonchi or crackles abd- soft, non tender, non distended neuro- AAOx3 Chest Pain most likely 2/2 HTN emergency HTN emergency BP now controlled and off nitro + nicardapine gtts -stress test pending, appreciate cards input -cont labetalol, chnge acei to ccb -cont to monitor bp and will require outpt fu JASON- creat elevation to 1.6, suspect multifactorial with BP changes and contrast dye with CTA -check UA, bladder scan for retention, renal US, monitor output -dc acei, change to ccb further diagnoses and plan as noted by resident <Abbe Narvaez S - Last Filed: 01/14/19 11:19> (3) Headache Qualifiers: Headache type: unspecified Headache chronicity pattern: acute headache Intractability: not intractable Qualified Code(s): R51 - Headache (4) Diabetes Qualifiers: Diabetes mellitus type: type 2 Diabetes mellitus detention insulin use: without exterminator use Diabetes mellitus complication status: with neurologic complications Diabetes mellitus complication detail: with polyneuropathy Qualified Code(s): E11.42 - Type 2 diabetes mellitus with diabetic polyneuropathy (5) Chest pain Qualifiers: Chest pain type: unspecified Qualified Code(s): R07.9 - Chest pain, unspecified <Isabelle Hoang M - Last Filed: 01/14/19 11:33> (1) Chest pain Qualifiers: Chest pain type: unspecified Qualified Code(s): R07.9 - Chest pain, unspecified
[2019-01-14] MEDS: Insulin LISPRO 300 UNITS/3 ML VIAL SQ SCH ×4 (08:49→21:49)
[2019-01-14] MEDS: Gabapentin 300 MG CAPSULE PO SCH ×3 (08:50→21:52)
[2019-01-14] MEDS: Ascorbic Acid 500 MG TABLET PO SCH ×2 (08:50→21:52)
[2019-01-14] MEDS: ARIPiprazole 2 MG TABLET PO SCH (08:50)
[2019-01-14] MEDS: Lisinopril 20 MG TABLET PO SCH (08:50)
[2019-01-14] MEDS: Aspirin Enteric Coated 81 MG Tablet PO SCH (08:51)
[2019-01-14] MEDS: 0.9 % Sodium Chloride 1,000 ML IVC SCH (12:57)
--- NOTE | 2019-01-14 12:57 | Cardiology Progress Note ---
Date of Encounter: 01/14/19 Time of Encounter: 12:55 Assessment and Plan (1) Hypertensive emergency Current Visit: Yes Status: Resolved Per cardiology: -Hypertensive emergency. Reports hospitalization for b/p in past. -Initially treated with IV NTG gtt at 45 mcg/HR and cardene gtt, IV hydralizine, and IV labatalol. -Possible non-compliance. He is not following regularly with PCP. -IV medications weaned off. -ON BB and CCB. Was on milly inhibitor, now stopped due to JASON. -BP now controlled. -Continue to monitor. (2) Chest pain Current Visit: Yes Status: Resolved Per cardiology: -Atypical chest pain in the setting of hypertensive urgency. Pain is constant and not relieved with NTG IV at high dose. Patient had previously reported Pain also increases with deep breaths and exertion. -Troponin negative x3. EKG shows NSR with no acute ST changes. -CTA chest negative for PE or dissection. -Stress test 12/2017 was negative for ischemia. TTE 12/2017- EF 65%. No significant valve disease. -Reports h/o possible GA three years ago. Denies prior LHC or cardiac stents. -Stress test this admission with small sized, mild intensity, inferior perfusion defect possibly due to ischemia. -Of note, now with JASON. -Plan for LHC when able. RIsks versus benefits of LHC explained to patient who states understanding and agreeable to proceed. However, now with JASON, will defer LHC until renal function stable. Patient states understanding. Qualifiers: Chest pain type: unspecified Qualified Code(s): R07.9 - Chest pain, uns pecified Discussion w patient/family: The assessment and plan as outlined above was discussed with the patient who expressed understanding and agreement. All questions were answered. Thank you for involving us in the care of your patient. Please call with any questions. Discussed and reviewed with . Subjective Principal diagnosis: hypertensive urgency Interval history: Patient reports continued chest pain. Denies aggravating or alleviating factors. Currently resting comfortably in bed. Objective Vital Signs, Last 4 Hours Temp Pulse Resp BP Pulse Ox 01/14/19 11:23 98.1 F 64 20 98/66 96 General: Conversant, No Apparent Distress HEENT: Atraumatic, Normocephaly, Mucus Membranes Moist Neck: No JVD, Normal carotid pulses Cardiac: Reg Rate and Rhythm, Normal S1 and S2, No Murmur Lungs: Normal Breath Sounds, No Wheeze, Rales, Rhonchi Neuro: Alert and responsive, No focal deficits noted Abdomen: Soft, Non-Tender Skin: No rashes noted on visualized skin Musculoskeletal: No Chest Wall Tenderness Extremities: No Clubbing, No Cyanosis, No Edema, Normal Pulses Results 01/13/19 05:57 01/14/19 03:13 Lab Results Active Medications Acetaminophen (Tylenol) 650 mg PO Q6HR PRN PRN Reason: mild to moderate pain Stop: 07/13/19 20:03 Last Admin: 01/12/19 09:40 Dose: 650 mg Documented by: Amlodipine Besylate (Norvasc) 10 mg PO DAILY [facility]; Protocol Stop: 07/17/19 09:01 Aripiprazole (Abilify) 2 mg PO DAILY [facility] Stop: 07/14/19 09:01 Last Admin: 01/14/19 08:50 Dose: 2 mg Documented by: Ascorbic Acid (Vitamin C) 500 mg PO BID [facility] Stop: 07/13/19 21:01 Last Admin: 01/14/19 08:50 Dose: 500 mg Documented by: Aspirin (Aspirin Ec) 81 mg PO DAILY [facility] Stop: 07/14/19 09:01 Last Admin: 01/14/19 08:51 Dose: 81 mg Documented by: Dextrose/Water (Dextrose 50% (Syg)) 25 ml IVP AD PRN PRN Reason: Hypoglycemia Stop: 07/14/19 09:58 Duloxetine HCl (Cymbalta) 60 mg PO BID [facility] Stop: 07/13/19 21:01 Last Admin: 01/14/19 08:50 Dose: 60 mg Documented by: Fentanyl Citrate (Fentanyl (Pf)) 50 mcg IVP Q6HR PRN PRN Reason: Severe Pain Stop: 07/13/19 13:31 Last Admin: 01/12/19 05:10 Dose: 50 mcg Documented by: Gabapentin (Neurontin) 300 mg PO TID [facility] Stop: 07/13/19 15:01 Last Admin: 01/14/19 08:50 Dose: 300 mg Documented by: Glucagon (Glucagen) 1 mg IM ONCE PRN PRN Reason: Hypoglycemia Stop: 07/14/19 09:58 Glucose (Gluctose) 15 gm PO ONCE PRN PRN Reason: Hypoglycemia Stop: 07/14/19 09:58 Glucose (Gluctose) 30 gm PO ONCE PRN PRN Reason: Hypoglycemia Stop: 07/14/19 09:58 Heparin Sodium (Porcine) (Heparin) 5,000 unit SQ Q12HCO [facility] Stop: 07/14/19 18:01 Last Admin: 01/14/19 06:04 Dose: 5,000 unit Documented by: Hydralazine HCl (Hydralazine) 10 mg IVP Q6HR PRN PRN Reason: Hypertension Stop: 07/13/19 16:10 Last Admin: 01/12/19 17:33 Dose: 10 mg Documented by: Dextrose (Dextrose 5%) 1,000 mls @ 100 mls/hr IVC .Q10H PRN PRN Reason: HYPOGLYCEMIA Stop: 07/14/19 09:58 Sodium Chloride (0.9 % Sodium Chloride) 1,000 mls @ 75 mls/hr IVC .[id number] [facility] Stop: 07/16/19 10:46 Insulin Human Lispro (Humalog) 0 units SQ HS [facility]; Protocol Stop: 07/14/19 21:01 Last Admin: 01/13/19 21:35 Dose: Not Given Documented by: Insulin Human Lispro (Humalog) 0 units SQ TIDAC [facility]; Protocol Stop: 07/14/19 11:31 Last Admin: 01/14/19 11:27 Dose: Not Given Documented by: Labetalol HCl (Trandate) 200 mg PO BID [facility] Stop: 07/15/19 09:01 Last Admin: 01/14/19 08:51 Dose: 200 mg Documented by: Naloxone HCl (Narcan) 0.4 mg IVP Q2M PRN PRN Reason: SEE COMMENTS Stop: 07/13/19 12:59 Nitroglycerin (Nitroglycerin) 0.4 mg SL Q5MI PRN PRN Reason: Chest Pain Stop: 07/13/19 11:32 Last Admin: 01/11/19 11:42 Dose: 0.4 mg Documented by: Ondansetron HCl (Zofran) 4 mg IVP Q6HR PRN; Protocol PRN Reason: Nausea Stop: 07/13/19 18:12 Last Admin: 01/12/19 00:53 Dose: 4 mg Documented by: Promethazine HCl (Phenergan) 12.5 mg IVP Q4HR PRN PRN Reason: Nausea And Vomiting Stop: 07/13/19 21:15 Last Admin: 01/12/19 02:15 Dose: 12.5 mg Documented by: Quetiapine Fumarate (Seroquel) 50 mg PO [facility] Stop: 07/13/19 21:01 Last Admin: 01/13/19 21:45 Dose: 50 mg Documented by: Simvastatin (Zocor) 20 mg PO [facility]; Protocol Stop: 07/13/19 21:01 Last Admin: 01/13/19 21:44 Dose: 20 mg Documented by: Trazodone HCl (Trazodone) 100 mg PO [facility] Stop: 07/13/19 21:01 Last Admin: 01/13/19 21:44 Dose: 100 mg Documented by: Laboratory Tests 01/11/19 01/11/19 01/11/19 11:22 14:48 21:14 Creatinine Troponin I < 0.03 < 0.03 < 0.03 01/13/19 01/14/19 05:57 03:13 Creatinine 1.06 1.65 H Troponin I - Imaging and Cardiology Chest Xray: report reviewed Stress Test: report reviewed Echo: report reviewed - EKG Interpretation EKG results cardiology: other (Telemetry reviewed with average HR previous 12 hours noted to be 58, SB. PVCs, PACs noted.) Consult Discharge Plan - Plan Referrals: Praneeth Ruiz MD [Primary Care Provider] - 01/27/19 10:30 am
[2019-01-14] MEDS: tiZANidine 4 MG TABLET PO SCH ×2 (15:49→21:52)
[2019-01-14 19:33] LABS: Sodium, Urine 22.4 mEq/L
[2019-01-14 20:10] LABS: Bilirubin,Urine Negative (Negative); Blood,Urine Negative (Negative); Clarity,Urine Clear (Clear); Color,Urine Yellow (Yellow); Glucose,Urine (UA) Normal (Normal); Ketones,Urine Negative (Negative); Leukocyte Esterase,Urine Negative (Negative); Nitrite,Urine Negative (Negative); Protein,Urine Negative (Neg-Trace); Specific Gravity,Urine 1.025 (1.010-1.025); Urobilinogen,Urine Normal (Normal)
[2019-01-14] MEDS: traZODone 50 MG TABLET PO SCH (21:52)
[2019-01-15] MEDS: 0.9 % Sodium Chloride 1,000 ML IVC SCH ×2 (02:25→15:18)
[2019-01-15 04:56] LABS: Hematocrit 40.7 % (37.5-50.1); Mean Corpuscular HGB Conc 33.7 g/dL (31.6-35.5); Mean Corpuscular Hemoglobin 30.6 pg (28.0-33.3); Mean Corpuscular Volume 91.1 fL (83.0-100.0); Mean Platelet Volume 9.5 fL (9.4-12.4); Platelet Count 255 K/mcL (140-400); Red Blood Count 4.47 M/mcL (4.19-5.50); Red Cell Distribution Width 13.9 % (11.5-14.5)
[2019-01-15 04:59] LABS: Hemoglobin 13.7 g/dL (12.9-16.9)
[2019-01-15 05:11] LABS: BUN/Creatinine Ratio 22 (6-26); Blood Urea Nitrogen 28 mg/dL (8-23); Calcium 8.6 mg/dL (8.6-10.3); Carbon Dioxide 24 mEq/L (23-29); Chloride 106 mEq/L (98-107); Glucose 121 mg/dL (70-105); Osmolality,Calculated 293 (280-300); Potassium 3.5 mEq/L (3.5-5.1); Sodium 138 mEq/L (136-145); eGFR For Non-African Americans 56 (> 60)
[2019-01-15] MEDS: *HR* Heparin 5,000 UNIT/ML VIAL SQ SCH ×2 (05:47→17:03)
--- NOTE | 2019-01-15 07:12 | Internal Med Progress Note ---
<Isabelle Hoang - Last Filed: 01/15/19 10:02> Hospitalist Progress Note - Encounter Date of Encounter: 01/15/19 - Exam Vitals: Temp Pulse Resp BP Pulse Ox 97.8 F 54 17 108/71 99 01/15/19 07:54 01/15/19 07:54 01/15/19 07:54 01/15/19 07:54 01/15/19 07:54 - Assessment and Plan (1) Chest pain Current Visit: Yes Status: Resolved (2) DVT prophylaxis Current Visit: Yes Status: Acute (3) Hypertensive emergency Current Visit: Yes Status: Resolved (4) Dyslipidemia Current Visit: No Status: Chronic - Time Spent with Patient Total time spent is greater than 50% in coordination of care (as documented) at patient's floor/unit and/or counseling patient: Internal Medicine: Result - Labs CBC & Chem 7: 01/15/19 04:35 01/15/19 04:35 Labs: Short CBC 01/15/19 Range/Units 04:35 WBC 6.3 (4.3-11.1) K/mcL Hgb 13.7 D (12.9-16.9) g/dL Hct 40.7 (37.5-50.1) % Plt Count 255 (140-400) K/mcL BMP 01/15/19 04:35 Sodium 138 Potassium 3.5 Chloride 106 Carbon Dioxide 24 BUN 28 H Creatinine 1.27 Glucose 121 H Calcium 8.6 Urine 01/14/19 Range/Units 19:01 Urine Color Yellow (Yellow) Urine Clarity Clear (Clear) Urine pH 6.0 (5.0-8.0) pH Units Ur Specific Bloomer 1.025 (1.010-1.025) Urine Protein Negative (Neg-Trace) mg/dL Urine Glucose (UA) Normal (Normal) mg/dL - ABG Interpretation ABG results: PT/INR, D-dimer PT 11.1 Seconds (9.4-12.1) 01/11/19 14:48 - Impressions Impressions Retroperitoneum Ultrasound 01/14/19 15:00 IMPRESSION: Normal ultrasound appearance of the kidneys and bladder. Mildly enlarged prostate gland. D/ / 01/14/2019 16:57:16 Jacques Bai MD / lukas Interpreting Provider: Jacques Bai MD Consult Discharge Plan - Plan Referrals: Praneeth Ruiz MD [Primary Care Provider] - 01/27/19 10:30 am - Attending Attestation I examined this patient and my medical decision-making was reviewed with the Resident Physician Dr Narvaez. I agree with the documented findings, disposition and treatment plan as described except to the extent set forth below. Mr Ro is admitted with chest pain and hypertensive emergency awake, some mild cp overnight, mild this morning, no sob. no palpitations gen- alert, awake,appears stated age cv- reg rate and rhythm, normal s1,s2, no murmurs appreciated, no le edema lungs- ctabl, normal resp effort on room air neuro- AAOx3 Chest Pain, rule out ischemic HTN emergency, resolved -abnormal stress test, for [facility] today -cont labetalol, hold norvasc for BPs in 90s sbp -cont to monitor bp and will require outpt fu JASON-resolved with IVFs, suspect multifactorial with BP changes and contrast dye with CTA -UA neg, bladder scan unremarkable, renal US with prostate enlargemet otherwise unremarkable -hold acei/arb further diagnoses and plan as noted by resident <Abbe Narvaez S - Last Filed: 01/15/19 11:21> Hospitalist Progress Note - Encounter Date of Encounter: 01/15/19 Time of Encounter: 08:13 - Subjective Interval History: Pt seen at bedside. No acute complaint or concern. He denies active chest pain. Pt to go for [facility] today. - Exam Vitals: Temp Pulse Resp BP Pulse Ox 97.5 F L 63 20 98/59 97 01/15/19 03:52 01/15/19 03:52 01/15/19 03:52 01/15/19 03:52 01/15/19 03:52 Exam: general - NAD, laying in bed, pleasant HEENT - MMM, NCAT cardio - rrr, s1s2, cta lungs - ctab, not in respiratory distress abd - ntnd, soft, no rebound or guarding neuro - no fnd, cn2-12 intact psych - anxious appearing skin - warm, dry, intact - Assessment and Plan (1) JASON (acute kidney injury) Current Visit: Yes Status: Acute Assessment and Plan: Pt with admission creatinine 1.21, increased to 1.65 and returned to 1.27. Pt did have contrast exposure on admission for CTA, likely secondary to contrast vs lisinopril. - also has c/o difficulty urinating and some burning with urination UA negative Retroperitoneal US showed mild prostate enlargment Urine sodium 22.4, urine creatinine 202 Urine eosinophils 0 FENa 0.1%, likely pre-renal in etiology vs contrast induced nephropathy Plan: - d/c lisinopril - continue to monitor renal fxn - avoid nephrotoxins - start 75cc/hr NS IVF - urine creatinine, eosinophils and sodium pending (2) Hypertensive emergency Current Visit: Yes Status: Resolved Assessment and Plan: Patient present with c/o CP and SOB x 4 [place] - increasing headache - on arrival BP was 200's systolic + active chest pain Troponin negative EKG showed no ischemic changes CTA chest ruled out PE, aortic dissection Stress test 12/2017 was negative for ischemia TTE 12/2017- EF 65%. No significant valve disease. No hx of stents ECHO LVEF 60-65% with normal LV chamber size, wall thickness and function. BP improving to 110-120's, HR in 50-60's Pt reports improvement of CP Plan: - cardiology consulted, appreciate recommendations cardiology to restart home lisinopril heparin drip d/c stress test from 01/14/19 showed inferior ischemi [facility] today - continue labetolol per cardiology, norvasc held today due to SBP in 90s - d/c lisinopril due to JASON as above - nitro and nifedipine drip d/c 01/13 - FEN: NPO - dispo: cardiology recommendations, [facility] today, SNF placement at discharge (3) Headache Current Visit: Yes Status: Resolved Assessment and Plan: Likely secondary to nitro drip vs HTN emergency. BP control as above. Resolved. (4) Diabetes Current Visit: No Status: Chronic Assessment and Plan: Hold home metformin. LDSS. Accuchecks. (5) Chest pain Current Visit: Yes Status: Resolved Assessment and Plan: Likely secondary to hypertensive emergency. See plan as above. Resolved. (6) DVT prophylaxis Current Visit: Yes Status: Acute Assessment and Plan: sq heparin (7) Dyslipidemia Current Visit: No Status: Chronic Assessment and Plan: con't simvastatin. (8) Tobacco abuse Current Visit: Yes Status: Acute Assessment and Plan: chronic. counsled. encouraged cessation. DVT Prophylaxis: heparin sq - Time Spent with Patient Total time spent is greater than 50% in coordination of care (as documented) at patient's floor/unit and/or counseling patient: less than 15 minutes Internal Medicine: Result - Labs CBC & Chem 7: 01/15/19 04:35 01/15/19 04:35 Labs: Short CBC 01/15/19 Range/Units 04:35 WBC 6.3 (4.3-11.1) K/mcL Hgb 13.7 D (12.9-16.9) g/dL Hct 40.7 (37.5-50.1) % Plt Count 255 (140-400) K/mcL BMP 01/15/19 04:35 Sodium 138 Potassium 3.5 Chloride 106 Carbon Dioxide 24 BUN 28 H Creatinine 1.27 Glucose 121 H Calcium 8.6 Urine 01/14/19 Range/Units 19:01 Urine Color Yellow (Yellow) Urine Clarity Clear (Clear) Urine pH 6.0 (5.0-8.0) pH Units Ur Specific Bloomer 1.025 (1.010-1.025) Urine Protein Negative (Neg-Trace) mg/dL Urine Glucose (UA) Normal (Normal) mg/dL - ABG Interpretation ABG results: PT/INR, D-dimer PT 11.1 Seconds (9.4-12.1) 01/11/19 14:48 - Impressions Impressions Retroperitoneum Ultrasound 01/14/19 15:00 IMPRESSION: Normal ultrasound appearance of the kidneys and bladder. Mildly enlarged prostate gland. D/ / 01/14/2019 16:57:16 Jacques Bai MD / lukas Interpreting Provider: Jacques Bai MD <Isabelle Hoang M - Last Filed: 01/15/19 10:02> (1) Chest pain Qualifiers: Chest pain type: unspecified Qualified Code(s): R07.9 - Chest pain, unspecified <Abbe Narvaez S - Last Filed: 01/15/19 11:21> (3) Headache Qualifiers: Headache type: unspecified Headache chronicity pattern: acute headache Intractability: not intractable Qualified Code(s): R51 - Headache (4) Diabetes Qualifiers: Diabetes mellitus type: type 2 Diabetes mellitus manager long term care insulin use: without manager long term care use Diabetes mellitus complication status: with neurologic complications Diabetes mellitus complication detail: with polyneuropathy Qualified Code(s): E11.42 - Type 2 diabetes mellitus with diabetic polyneuropathy (5) Chest pain Qualifiers: Chest pain type: unspecified Qualified Code(s): R07.9 - Chest pain, unspecified
[2019-01-15] MEDS ORDERED: amLODIPine 5 MG TABLET PO SCH (09:00)
[2019-01-15] MEDS: Insulin LISPRO 300 UNITS/3 ML VIAL SQ SCH ×4 (09:20→21:27)
[2019-01-15] MEDS: Ascorbic Acid 500 MG TABLET PO SCH ×2 (09:31→21:26)
[2019-01-15] MEDS: Gabapentin 300 MG CAPSULE PO SCH ×3 (09:31→21:26)
[2019-01-15] MEDS: tiZANidine 4 MG TABLET PO SCH ×3 (09:31→21:26)
[2019-01-15] MEDS: ARIPiprazole 2 MG TABLET PO SCH (09:31)
[2019-01-15] MEDS: Aspirin Enteric Coated 81 MG Tablet PO SCH (09:31)
--- NOTE | 2019-01-15 09:59 | Event Note ---
Date of Encounter: 01/15/19 Time of Encounter: 09:58 - Cardiology Event Note Plan for LHC for chest pain, abornal stress test. Renal function has improved today. Risks versus benefits of LHC explained to patient, who states understanding and agreeable to proceed. Further recs pending LHC.
[2019-01-15] MEDS ORDERED: 0.9 % Sodium Chloride 1,000 ML ONE (11:47)
[2019-01-15] MEDS ORDERED: Heparin 1,000 UNITS/500 mL 500 ML ONE (11:47)
[2019-01-15] MEDS ORDERED: ISOVUE-370 200 ML INFUS..BTL ONE (11:47)
[2019-01-15] MEDS ORDERED: *HR* Heparin 10,000 UNIT/10 ML VIAL ONE ×2 (11:47→12:43)
[2019-01-15] MEDS ORDERED: Nitroglycerin 1,000 MCG/10 ML VIAL IV ONE (11:47)
[2019-01-15] MEDS ORDERED: Verapamil 5 MG/2 ML VIAL ONE ×2 (12:30→12:43)
[2019-01-15] MEDS ORDERED: *HR* Midazolam HCl 2 MG/2 ML VIAL ONE (12:30)
--- NOTE | 2019-01-15 13:04 | Event Note ---
Date of Encounter: 01/15/19 Time of Encounter: 13:04 - Cardiology Event Note Cath completed LVEF 55% LCA: plaque in lad and right coronaries recommend non cardiac work up and bp control
--- NOTE | 2019-01-15 13:13 | Invasive Diagnostic Lab Proc ---
Name: Cain Ro Date of Study: 01/15/2019 Date: 1950 Ht: 70.1in Medical Record#: [id number] Age: 68 Wt: 181.66lb Gender: Male BSA: 2.01 Order #: [id number] BMI: 26.01 Physicians Procedure Physician: Frantz Meyers MD Referring MD: Referring MD: Staff Name Position Time In [facility] RN Monitor 12:29 PM Robby Cortez RN Factory Focus Technician 12:29 PM Jorge Green RN Nurse 12:29 PM Gilbert Marmolejo RT (R) Scrub 12:30 PM Indications Indication Abnormal Test - Stress Procedures Performed Procedure L HRT ARTERY/VENTRICLE ANGIO Pre-Procedure Checklist Informed consent is complete signed and on chart. H&P is on chart. ID band is on and ID verified with patient. Patient NPO for procedure The procedure was described for the patient and questions were answered. Blood Pressure: 108/71 ECG is on chart. Rhythm: NSR Plan of Care Patient will tolerate the procedure without complications. Adequate level of comfort will be maintained. Hemodynamics will remain stable Patient will recover from procedure without complications. Respiratory function will be maintained. Cardiac rhythm will remain stable. Patient temperature will be maintained. Patient and/or family have verbalized understanding of the procedure. Patient Education Chief Complaint/Reason for Test: Cardiac Cath Developmental Category: Geriatric (65+ years) Developmentally Appropriate for Age: Yes Learning Barriers: None Education Needs: Procedure Education Method: Verbal Information Taught: Cardiac Cath Educational Evaluation: Able to repeat information Intravenous Access Time IV Size Location DC'd Fluid/Drip Rate Units RN 20g 1 09/19" Patent On Arrival Lt Antecubital 0.9NaCl Allergies No Known Allergies Vital Signs Time BP (mmHg) HR (bpm) O2 Sat. RR (bpm) LOC 12:30 PM / % 5 = Fully awake and oriented or at pre-proc level 12:30 PM / % 4 = Oriented but drowsy 12:34 PM 164 / 75 58 99 % 17 12:38 PM 151 / 74 56 98 % 10 12:43 PM 166 / 84 62 93 % 21 12:49 PM 140 / 53 42 96 % 5 12:54 PM 176 / 81 63 90 % 16 Procedural Medications Time Medication Dose Units Method Given By 12:37 PM Versed 2 mg Intravenous Diego, Robby RN 12:39 PM Lidocaine 2% 1 ml Subcutaneous Frantz Meyers MD 12:42 PM Heparin 4000 units Nitroglycerin 200 mcg Verapamil 2.5 mg Intraarterial Frantz Meyers MD 12:31 PM Oxygen 2 L/min nasal cannula Robby Cortez RN ASA Classification: CLASS II- Mild systemic disease (i.e. well-controlled diabetes, hypertension, asthma, cigarette smoking) Triston Score Preprocedure Postprocedure Activity 2- Moves 4 extremities sustained head lift Activity 2- Moves 4 extremities sustained head lift Circulation 2- SBP +/= 20 points of pre-anesthetic level Circulation 2- SBP +/= 20 points of pre-anesthetic level Consciousness 2- Awake and alert oriented x 3 Consciousness 2- Awake and alert oriented x 3 O2 Saturation 2- Able to maintain O2 satruation of 92% on room air O2 Saturation 2- Able to maintain O2 satruation of 92% on room air Respiratory 2- Able to deep breathe and cough well Respiratory 2- Able to deep breathe and cough well Total Score 10 Total Score 10 Contrast Agent: Isovue Diagnostic Contrast: 50 ml Total Contrast: 50 ml Fluoro Dose: 25 mGy Procedure Log Time Note Enter By 12:05 PM Pt arrived to quality assurance/r&d lab technician 2 at 12:05 [facility] 12:26 PM CathStat 12:29 PM [facility] RN Position: Monitor [facility]: 12:29 [facility] 12:29 PM Robby Cortez RN Position: Factory Focus Technician Time in: 12:29 [facility] 12:30 PM Jorge Green RN Position: Nurse Time in: :29 [facility] 12:30 PM Gilbert Marmolejo RT (R) Position: Scrub Time in: 12:30 [facility] 12:30 PM Patient charges- Angio tray pack, Navilyst 3mm J, Pulse Oximetry and ACIST tubing and transducer [facility] 12:30 PM IV Supplies used: J loop Angio Cath. [facility] 12:30 PM Case Delayed No [facility]oummers 12:30 PM Physician arrived 12:[facility] 12[facility] PM Meet and greet completed [facility] 12:30 PM Sign in performed according to hospital policy. Informed consent was obtained. [facility] 12:30 PM Procedure start 12:30 tsoummers 12:30 PM [ Start or Stop Vital ] 12:30 PM ASA Class CLASS II- Mild systemic disease (i.e. well-controlled diabetes, hypertension, asthma, cigarette smoking) [facility] 12:30 PM Time: 12:30 Patient comfortable and pain free: Yes [facility] 12:30 PM Time: 12:30LOC: 5 = Fully awake and oriented or at pre-proc level [facility] 12:31 PM Time: 12:31 Oxygen on at 2 L/min per nasal cannula by Robby Cortez RN [facility] 12:33 PM Vitals capture started with the following parameters, Patient=Adult, Interval=5 min, Initial Ilupnfqv=969 mmHg, Deflation Rate=5 mmHg, Cuff placed on Right Arm 12:34 PM HR=58 bpm, XKJV=252/75 mmhg, SpO2=99.0 %, Resp=17 B/min, EtCO2=21 mmHg 12:34 PM Recorded ECG: HR=56 Condition=Condition 1 12:37 PM Time: 12:37 Versed 2 mg Intravenous Given by Robby Cortez RN [facility] 12:38 PM Clinical Presentation: Unstable angina [facility] 12:38 PM Time out was performed according to hospital policy. Conscious sedation and anesthesia was achieved (see medication log with in this report above) tsoumm 12:38 PM HR=56 bpm, PJFK=304/74 mmhg, SpO2=98.0 %, Resp=10 B/min, EtCO2=22 mmHg, Comment=NSR 12:39 PM Pressure channel 2 zeroed. 12:39 PM Time: 12:39 1 ml Lidocaine 2% to right radial Subcutaneous Given by Frantz Meyers MD [facility] 12:42 PM Access obtained by percutaneous puncture. 6Fr 10cm Terumo Glidesheath sheath placed in right Radial artery. [id number] [facility] 12:42 PM Time: 12:42 Patient given 4,000 units Heparin, 200 mcg Nitroglycerin, and 2.5 mg Verapamil Intraarterial by Frantz Meyers MD. This is given to reduce risk of vessel spasm and thrombosis. [facility] 12:43 PM HR=62 bpm, BUYG=253/84 mmhg, SpO2=93.0 %, Resp=21 B/min 12:44 PM 0.035 260cm Navilyst 3mmJ wire [id number] [facility] 12:45 PM 5Fr FL3.5 catheter inserted over the wire [id number] [facility] 12:45 PM Time: 12:30 Patient comfortable and pain free: Yes [facility] 12:45 PM wire removed [facility] 12:46 PM LCA angiography performed in multiple views. [facility] 12:46 PM Recorded Pressure: Ao, HR=65, Condition=Condition 1 (Aorta) Ao 100/67/80 12:47 PM Catheter removed [facility] 12:47 PM 5Fr FR 4 catheter inserted over the wire [facility] 12:49 PM HR=42 bpm, JDCN=371/53 mmhg, SpO2=96.0 %, Resp=5 B/min, EtCO2=22 mmHg 12:51 PM Coronary Dominance: right [facility] 12:51 PM RCA angiography performed in multiple views. [facility] 12:53 PM Catheter removed [facility] 12:53 PM 5Fr Pigtail catheter inserted over the wire [facility] 12:53 PM Catheter crossed the aortic valve and was selectively placed in the left ventricle. Pressures recorded on pullback for left heart catheterization. [facility] 12:53 PM Bolus angiogram of left Ventricle complete: hand injection [facility] 12:54 PM HR=63 bpm, YHHF=930/81 mmhg, SpO2=90.0 %, Resp=16 B/min, EtCO2=28 mmHg 12:54 PM Recorded Pressure: LV, HR=54, Condition=Condition 1 (Left Ventricle) LV 127/5/13 12:55 PM Recorded Pressure: LV, Ao, HR=62, Condition=Condition 1 (Left Ventricle) LV 124/8/13, (Aorta) Ao 116/41/82 12:55 PM Catheter removed [facility] 12:55 PM Procedure completed at 12:55 01/15/2019 [facility] 12:55 PM Did you address GLADYS flow and Dominance? Yes [facility] 12:56 PM Sign out completed: Radiation Dose 268.5 mGy, 24.6 Gy/cm2 Fluoro Time: 5.9 Isovue 370 - 200ml contrast 50 ml given by Frantz Meyers MD. Complications: None. The patient was discharged out of the geophysical laboratory supervisor in stable condition. Sedation minutes 18. Cardiac Rehab Consult needed: No. Confirmed administered medications: Yes tsoummers 12:56 PM Isovue 370 - 200ml,1 Bottle(s) used. tsoummers 12:56 PM Arterial sheath pulled, Vasc Band closure device used and was Successful S/N. tsoummers 12:56 PM Vitals capture stopped. 12:56 PM Estimated Blood Loss: minimal tsoummers 12:56 PM Post ECG Sinus Bradycardia tsoummers 12:56 PM Post Blood Pressure 176/81 tsoummers 12:56 PM 12:56 Post Pulses Rt Radial 1+ tsoummers 12:56 PM Information taught Cardiac Cath and Vasc Band tsoummers 12:56 PM 10 ml air in Vasc Band. tsoummers 12:56 PM Education needs Procedure, Plan of Care, and Responsibilities of Patient in Care tsoummers 12:56 PM Learning barriers :None tsoummers 12:57 PM Education Methods Verbal tsoummers 12:57 PM Education evaluation Able to repeat information tsoummers 12:57 PM Site status No bleeding/hematoma - Rt Wrist as reported by Gilbert Marmolejo RT (R) at 12:57 tsoummers 12:57 PM Plavix, Effient or Brilinta given No tsoummers 12:57 PM Family placed in consult room. tsoummers 01:00 PM Lesion found in Proximal RCA. Pre Stenosis: 10 Pre GLADYS Flow: tsoummers 01:00 PM Lesion found in Mid RCA. Pre Stenosis: 10 Pre GLADYS Flow: tsoummers 01:00 PM Lesion found in Proximal LAD. Pre Stenosis: 10 Pre GLADYS Flow: tsoummers 01:00 PM Lesion found in Mid LAD. Pre Stenosis: 10 Pre GLADYS Flow: tsoummers 01:02 PM Report given to Carolina ROJAS Pt taken to 2A Room #63. 13:01 tsoummers 01:02 PM Patient out of room: 13:02 tsoummers Complications Complication None Hemodynamics Pressures Site Systolic/A Wave Diastolic/V Wave Mean AO 100 67 80 LV 127 5 13 LV 124 8 13 AO 116 41 82 Post Procedure Information Blood Pressure: 176/81 mmHg Rhythm: Sinus Bradycardia Post procedural instructions were given Closure Device Time Device Success/Fail 01/15/2019 12:56:00 PM Mechanical Compression Successful Site Checks Time Location Status Staff Sheath In? Note 12:57 PM Rt Wrist No bleeding/hematoma Gilbert Marmolejo RT (R) Pulses Time Site Pre-Procedure Post-Procedure Note Bilateral DP & PT 2+ Bilateral radial 2+ 12:56:00 PM Rt Radial 1+ Updated by [facility] RN on 01/15/2019 1:05:07 PM electronically signed on 01/15/2019 1:05:36 PM with status of Final
--- NOTE | 2019-01-15 13:35 | Event Note ---
Date of Encounter: 01/15/19 Time of Encounter: 13:34 - Cardiology Event Note LHC with minimal, non-obstructive CAD. Recommend work up for non-cardiac causes of chest pain. Cardiology will sign off. Re-consult if needed.
[2019-01-15] MEDS: traZODone 50 MG TABLET PO SCH (21:26)
[2019-01-16 02:23] LABS: Hematocrit 39.2 % (37.5-50.1); Hemoglobin 12.7 g/dL (12.9-16.9); Mean Corpuscular HGB Conc 32.4 g/dL (31.6-35.5); Mean Corpuscular Volume 92.7 fL (83.0-100.0); Mean Platelet Volume 9.7 fL (9.4-12.4); Platelet Count 267 K/mcL (140-400); Red Blood Count 4.23 M/mcL (4.19-5.50); Red Cell Distribution Width 14.1 % (11.5-14.5)
[2019-01-16 02:40] LABS: BUN/Creatinine Ratio 18 (6-26); Blood Urea Nitrogen 22 mg/dL (8-23); Calcium 8.1 mg/dL (8.6-10.3); Carbon Dioxide 24 mEq/L (23-29); Chloride 110 mEq/L (98-107); Glucose 110 mg/dL (70-105); Osmolality,Calculated 290 (280-300); Potassium 3.6 mEq/L (3.5-5.1); Sodium 138 mEq/L (136-145); eGFR For Non-African Americans 58 (> 60)
[2019-01-16] MEDS: 0.9 % Sodium Chloride 1,000 ML IVC SCH (04:00)
[2019-01-16] MEDS: *HR* Heparin 5,000 UNIT/ML VIAL SQ SCH (05:14)
[2019-01-16] MEDS: Insulin LISPRO 300 UNITS/3 ML VIAL SQ SCH (07:10)
--- NOTE | 2019-01-16 07:54 | Physician Discharge Referral ---
<Abbe Narvaez S - Last Filed: 01/16/19 09:26> ExtendedCare Referral Info Transfer To: [facility] Provider in Charge after Transfer: PCP Institutional Level of Care: Skilled - Diagnosis (1) Hypertensive emergency Priority: Primary Status: Resolved (2) JASON (acute kidney injury) Priority: Secondary Status: Resolved (3) Headache Priority: Secondary Status: Resolved (4) Diabetes Priority: Secondary Status: Chronic (5) Chest pain Priority: Secondary Status: Resolved (6) DVT prophylaxis Priority: Secondary Status: Acute (7) Dyslipidemia Priority: Secondary Status: Chronic (8) Tobacco abuse Priority: Secondary Status: Acute Prognosis: Good Aware of Diagnosis: Patient Aware of Prognosis: Patient - Transfer Medications Prescriptions: Labetalol [Trandate] 200 mg PO BID 30 Days #120 tablet Home Medications: Albuterol Sulfate [Proventil Hfa] 2 puff IH QID PRN 05/13/15 [History] Polyethylene Glycol 3350 [MiraLAX] 17 gm PO DAILY PRN 05/13/15 [History] Ascorbate Calcium [Vitamin C] 500 mg PO BID 07/10/17 [History] Aspirin Enteric Coated [Aspirin EC] 81 mg PO DAILY 07/10/17 [History] Quetiapine Fumarate [Seroquel] 50 mg PO HS #60 tablet 07/16/17 [Rx] ARIPiprazole [Abilify] 2 mg PO DAILY 09/11/17 [History] Duloxetine HCl [Cymbalta] 60 mg PO BID 09/11/17 [History] Gabapentin [Neurontin] 300 mg PO TID 09/11/17 [History] traZODone [TraZODone] 100 mg PO HS 09/11/17 [History] Omeprazole [PriLOSEC] 20 mg PO DAILY 7 Days #7 capsule. 01/11/18 [Rx] Gabapentin [Neurontin] 400 mg PO TID 12/05/18 [History] HydrOXYzine Pamoate [Vistaril] 50 mg PO DAILY 12/05/18 [History] Simvastatin [Zocor] 20 mg PO HS 12/05/18 [History] Tizanidine HCl 4 mg PO TID 12/05/18 [History] Labetalol [Trandate] 200 mg PO BID 30 Days #120 tablet 01/16/19 [Rx] Metformin HCl [Glucophage] 1,000 mg PO BID #0 01/16/19 [Rx] Allergies/Adverse Reactions: Allergy/AdvReac Type Severity Reaction Status Date / Time No Known Allergies Allergy Verified 12/05/18 20:18 - Respiratory Orders None Smoking Cessation: Smoking cessation has been advised. For more information, call the [employer] Line at 4-600-CIRQNOW. - Advance Directives Code Status: Full Code - Mobility Orders Ambulate - Rehabiliation Orders Rehab Potential: Good Rehab Orders: ROM Exercises, Evaluation for Physical Therapy, Evaluation for Occupational Therapy - Diet Orders Cardiac CERTIFICATION: I certify that the transfer of the above named patient to an Extended Care Facility is necessary for the continuing treatment of the diagnosis listed. The above information is true and accurate reflection of patient's current condition. Confidential - Redisclosure prohibited without a patient's written consent. <Isabelle Hoang - Last Filed: 01/16/19 09:44> - Diagnosis (1) Chest pain Status: Resolved (2) DVT prophylaxis Status: Acute (3) Hypertensive emergency Status: Resolved (4) Dyslipidemia Status: Chronic - Respiratory Orders None Smoking Cessation: Smoking cessation has been advised. For more information, call the [employer] Line at 6-895-SPSANOW. - Lab Orders Lab Orders: Other (include drug levels w/frequency) (BMP in 3 days from discharge to assess kidney function) - Ancillary Orders May use pressure relief devices daily prn - Treatments Skin tear care topically daily PRN per policy List/Other: May resume home metformin on 01/19/19 (status post left heart cath) Requires PCP follow up for work up of potential GI cause of chest pain, and outpt EGD is recommended. - Diet Orders No Concentrated Sweets, Cardiac CERTIFICATION: I certify that the transfer of the above named patient to an Extended Care Facility is necessary for the continuing treatment of the diagnosis listed. The above information is true and accurate reflection of patient's current condition. Confidential - Redisclosure prohibited without a patient's written consent.
--- NOTE | 2019-01-16 07:54 | Discharge Summary ---
<Isabelle Hoang - Last Filed: 01/16/19 09:36> - NOTES TO OUTPATIENT PROVIDER Notes to Outpatient Provider: Recommend outpt gi work up including EGD to assess for cause of substernal non cardiac chest pain. Hold metformin until 01/19/19 post [facility] Orders not resulted at time of discharge: Pending orders 01/14/19 00:01 NM connor perf SPECT multi [NM] Routine Date of Encounter: 01/16/19 - Discharge Diagnosis (1) Chest pain Status: Resolved Qualifiers: Chest pain type: unspecified Qualified Code(s): R07.9 - Chest pain, unspecified (2) DVT prophylaxis Status: Acute (3) Hypertensive emergency Status: Resolved (4) Dyslipidemia Status: Chronic Hospital course: Mr. Ro is a 68 year old male - Time Spent with Patient Total time spent providing and/or coordinating discharge services: Time spent: Greater than 30 minutes (35 min) - Discharge Medications Prescriptions: New Labetalol [Trandate] 200 mg PO BID 30 Days #120 tablet Continued Albuterol Sulfate [Proventil Hfa] 2 puff IH QID PRN PRN Reason: Shortness Of Breath Polyethylene Glycol 3350 [MiraLAX] 17 gm PO DAILY PRN PRN Reason: Constipation Aspirin Enteric Coated [Aspirin EC] 81 mg PO DAILY Ascorbate Calcium [Vitamin C] 500 mg PO BID Quetiapine Fumarate [Seroquel] 50 mg PO HS #60 tablet ARIPiprazole [Abilify] 2 mg PO DAILY Duloxetine HCl [Cymbalta] 60 mg PO BID Gabapentin [Neurontin] 300 mg PO TID traZODone [TraZODone] 100 mg PO HS Omeprazole [PriLOSEC] 20 mg PO DAILY 7 Days #7 capsule.dr Gabapentin [Neurontin] 400 mg PO TID HydrOXYzine Pamoate [Vistaril] 50 mg PO DAILY Simvastatin [Zocor] 20 mg PO HS Tizanidine HCl 4 mg PO TID Metformin HCl [Glucophage] 1,000 mg PO BID #0 Discontinued Lisinopril [Zestril] 40 mg PO DAILY 7 Days #14 tablet Home Medications: Albuterol Sulfate [Proventil Hfa] 2 puff IH QID PRN 05/13/15 [History] Polyethylene Glycol 3350 [MiraLAX] 17 gm PO DAILY PRN 05/13/15 [History] Ascorbate Calcium [Vitamin C] 500 mg PO BID 07/10/17 [History] Aspirin Enteric Coated [Aspirin EC] 81 mg PO DAILY 07/10/17 [History] Quetiapine Fumarate [Seroquel] 50 mg PO HS #60 tablet 07/16/17 [Rx] ARIPiprazole [Abilify] 2 mg PO DAILY 09/11/17 [History] Duloxetine HCl [Cymbalta] 60 mg PO BID 09/11/17 [History] Gabapentin [Neurontin] 300 mg PO TID 09/11/17 [History] traZODone [TraZODone] 100 mg PO HS 09/11/17 [History] Omeprazole [PriLOSEC] 20 mg PO DAILY 7 Days #7 capsule. 01/11/18 [Rx] Gabapentin [Neurontin] 400 mg PO TID 12/05/18 [History] HydrOXYzine Pamoate [Vistaril] 50 mg PO DAILY 12/05/18 [History] Simvastatin [Zocor] 20 mg PO HS 12/05/18 [History] Tizanidine HCl 4 mg PO TID 12/05/18 [History] Labetalol [Trandate] 200 mg PO BID 30 Days #120 tablet 01/16/19 [Rx] Metformin HCl [Glucophage] 1,000 mg PO BID #0 01/16/19 [Rx] Allergies/Adverse Reactions: Allergy/AdvReac Type Severity Reaction Status Date / Time No Known Allergies Allergy Verified 12/05/18 20:18 Date of admission: 01/11/19 17:14 Primary care physician: Praneeth Ruiz MD Consults: 01/11/19 13:23 Consult to Cardiology [CONS] Routine Comment: Consulting Provider: [facility] [place] Reason for Consult: ongoing chest pain Call Completed: Yes 01/13/19 09:22 Consult to Occupational Therapy [CONS] Routine Comment: Evaluate, develop and implement POC Reason for Consult: ptot eval Does patient have active BEDREST order?: No Is patient medically & hemodynamically stable?: Yes Patient assessed for mobility or mobilized this visit?: No Consult to Physical Therapy [CONS] Routine Comment: Evaluate, develop and implement POC Reason for Consult: ptot eval Does patient have active BEDREST order?: No Is patient medically & hemodynamically stable?: Yes Patient assessed for mobility or mobilized this visit?: No 01/14/19 09:50 Consult to Accounting Generalist [CONS] Routine Reason for SW Consult: needs ecf - Constitutional Vitals: Temp Pulse Resp BP Pulse Ox 97.6 F 60 18 153/92 98 01/16/19 07:00 01/16/19 07:00 01/16/19 07:00 01/16/19 07:00 01/16/19 07:00 - Patient Status Disposition: Transfer SNF Condition: Good - Ambulatory Orders Ambulatory Orders: Basic Metabolic Panel [CHEM] Time Frame: 3 Days, Facility: [facility], Location: Lab - Discharge Instructions Follow Up With: Praneeth Ruiz MD [Primary Care Provider] - 01/27/19 10:30 am Additional Instructions: Metformin may be resumed 01/19/19 (held status post left heart cath) - Attending Attestation I examined this patient and my medical decision-making was reviewed with the Resident Physician Dr Narvaez. I agree with the documented findings, disposition and treatment plan as described except to the extent set forth below. Mr Ro is admitted with chest pain and hypertensive emergency. BP remains stable. LHC negative for stenosis and rec is for outpt GI work up. DC in stable condition to [facility] awake, no cp, pressure. denies sob, abd pain, n/v. eating and drinking without difficulty. discussed dc plan and answered all questions. happy to dc to [facility] today gen- alert, awake,appears stated age cv- reg rate and rhythm, normal s1,s2, no murmurs appreciated lungs- ctabl, normal resp effort on room air abd- soft, non tender, non distended, + bs, no guarding neuro- AAOx3 Chest Pain, ruled out ischemic HTN emergency, resolved -abnormal stress test, LHC 01/15 without obstructive lesions, no intervention required- cards rec for gi work up and will defer to PCP outpt, rec outpt egd -cont labetalol, hold his home acei on dc due to jason and low bps with multi med regimen, fu with pcp for further bp management JASON-resolved with IVFs, suspect multifactorial with BP changes, acei and contrast dye with CTA -UA neg, bladder scan unremarkable, renal US with prostate enlargement otherwise unremarkable -hold acei on dc and re eval bmp outpt, defer to pcp if requires re started DM- hold jeet emetformin post LHC, dc instructions given for when to resume further diagnoses and plan as noted by resident time spent on dc 35 min <Abbe Narvaez S - Last Filed: 01/16/19 10:53> - NOTES TO OUTPATIENT PROVIDER Notes to Outpatient Provider: Follow up with PCP in 1 week. Will be discharged on BID labetolol. BMP in 3 days, decide whether or not to re-start zestril, rx was held due to JASON while in the hospital. Zestril induced JASON vs contrast induced. Creatinine returned back to baseline on day of discharge. Needs outpt workup of non-cardiac causes of chest pain, pt had negative LHC although did have (+) stress test for ischemia inferiorly. Recommend outpt gi work up including EGD to assess for cause of substernal non cardiac chest pain. Hold metformin until 01/19/19 post [facility] Orders not resulted at time of discharge: Pending orders 01/14/19 00:01 NM connor perf SPECT multi [NM] Routine 01/15/19 09:48 CL Cardiac Catheterization [CL] Routine Date of Encounter: 01/16/19 Time of Encounter: 09:20 - Discharge Diagnosis (1) Hypertensive emergency Priority: Primary Status: Resolved (2) JASON (acute kidney injury) Priority: Secondary Status: Resolved (3) Headache Priority: Secondary Status: Resolved Qualifiers: Headache type: unspecified Headache chronicity pattern: acute headache Intractability: not intractable Qualified Code(s): R51 - Headache (4) Diabetes Priority: Secondary Status: Chronic Qualifiers: Diabetes mellitus type: type 2 Diabetes mellitus [employer] insulin use: without snf use Diabetes mellitus complication status: with neurologic complications Diabetes mellitus complication detail: with polyneuropathy Qualified Code(s): E11.42 - Type 2 diabetes mellitus with diabetic polyneuropathy (5) Chest pain Priority: Secondary Status: Resolved Qualifiers: Chest pain type: unspecified Qualified Code(s): R07.9 - Chest pain, unspecified (6) DVT prophylaxis Priority: Secondary Status: Acute (7) Dyslipidemia Priority: Secondary Status: Chronic (8) Tobacco abuse Priority: Secondary Status: Acute Hospital course: Mr. Ro is a 68 year old male with PMH of uncontrolled hypertension, tobacco abuse, dyslipidemia, and he reported a heart attack 2 years ago (but no record of this) presenting with complaints of chest pain and shortness of breath for several days. He describes the pain as a heaviness in the left side of his chest with some radiation to the left arm. Pain is 10/10 and described as feeling like something sitting on his chest. Denies any nausea, vomiting, fevers or any other acute symptoms. There was question of if he was compliant with home medication. He reportedly takes zestril at home. In the ER, BP was noted to be 211/ 126 and he was started on a nitroglycerin drip. Troponin negative x 3 in the ER. EKG showed no ischemic changes CTA chest was obtained and ruled out PE and aortic dissection. He previously had a cardiac workup Stress test 12/2017 was negative for ischemia TTE 12/2017- EF 65%. No significant valve disease. Repeat ECHO here showed LVEF 60-65% with normal LV chamber size, wall thickness and function. Cardiology was consulted and they recommended re-starting his home lisinopril and discontinuing the heparin drip. His nitro and nicardipine drip were turned off. Cardiology did order a stress test which showed ischemia, impression as follows: Pharmacologic stress ECG is non-diagnostic for ischemia due to baseline ST-T wave changes and submaximal heart rate. Gated EF = 68%. Small sized, mild intensity, reversible inferior perfusion defect possibly due to ischemia. He got a C on 01.15.19. Report as below: Impressions: Minimal atherosclerotic coronary artery disease. The left ventricle is normal and has normal contractility EF 60% Cardiology signed off and recommended outpatient workup of non-cardiac chest pain. Recommendations were as follows: Optimal medical therapy of patient's disease. Non cardiac evaluation. Aggressive risk factor modification. While in the hospital, the pt did have an JASON and FENa calculated to be pre- renal vs contrast induced nephropathy. Creatinine was 1.16 on admission, increased to 1.65 and returned to baseline. We will hold home zestril on discharge and recommend pt get a follow up BMP in 3 days before PCP appointment. The patient is medically stable for d/c. He will be going to [facility]. He will be discharged with labetolol 200mg PO BID as per cardiology r ecommendations. Zestril will be held as described above. Norvasc was started while in the hospital, but will d/c on discharge. Recommend outpt gi work up including EGD to assess for cause of substernal non cardiac chest pain. Hold metformin until 01/19/19 post [facility]. Discharge discussed with: patient, nurse Time spent discussing smoking cessation with patient: 3 to 10 minutes - Time Spent with Patient Total time spent providing and/or coordinating discharge services: Time spent: Greater than 30 minutes Date of admission: 01/11/19 17:14 Primary care physician: Praneeth Ruiz MD Consults: 01/11/19 13:23 Consult to Cardiology [CONS] Routine Comment: Consulting Provider: Card[facility] [place] Reason for Consult: ongoing chest pain Call Completed: Yes 01/13/19 09:22 Consult to Occupational Therapy [CONS] Routine Comment: Evaluate, develop and implement POC Reason for Consult: ptot eval Does patient have active BEDREST order?: No Is patient medically & hemodynamically stable?: Yes Patient assessed for mobility or mobilized this visit?: No Consult to Physical Therapy [CONS] Routine Comment: Evaluate, develop and implement POC Reason for Consult: ptot eval Does patient have active BEDREST order?: No Is patient medically & hemodynamically stable?: Yes Patient assessed for mobility or mobilized this visit?: No 01/14/19 09:50 Consult to Accounting Generalist [CONS] Routine Reason for SW Consult: needs ecf Discharging clinician: Abbe Narvaez Anticipated date of discharge: 01/16/19 - Constitutional Vitals: Temp Pulse Resp BP Pulse Ox 97.6 F 60 18 153/92 98 01/16/19 07:00 01/16/19 07:00 01/16/19 07:00 01/16/19 07:00 01/16/19 07:00 Exam: general - NAD, laying in bed, pleasant HEENT - MMM, NCAT cardio - rrr, s1s2, cta lungs - ctab, not in respiratory distress abd - ntnd, soft, no rebound or guarding neuro - no fnd, cn2-12 intact psych - normal affect , normal mood skin - warm, dry, intact - Patient Status Functional capacity at discharge: independent ambulation Overall status at discharge: patient is progressing back to baseline - Diet and Activity Activity: as per physical therapy, increase activity as tolerated Diet: low fat, low cholesterol, low salt diet, other (cardiac)
[2019-01-16] MEDS: Gabapentin 300 MG CAPSULE PO SCH (08:44)
[2019-01-16] MEDS: Ascorbic Acid 500 MG TABLET PO SCH (08:44)
[2019-01-16] MEDS: Aspirin Enteric Coated 81 MG Tablet PO SCH (08:44)
[2019-01-16] MEDS: ARIPiprazole 2 MG TABLET PO SCH (08:44)
[2019-01-16] MEDS: tiZANidine 4 MG TABLET PO SCH (08:44)
[2019-01-16 10:11] VITALS: BP 151/80
== END 2019-01-16 11:50 | DRG 287 ==
LOC: EMEROOARM 11:13 → 3BNU 11:13 → 2NENU 13:23 → SUATTDRO 17:14 → 2NNU 19:03 → 2ANU 01-13 20:34
PROVIDERS: ADMIT Student in an Organized Health Care Education/Training Program; ATTEND Internal Medicine

== ENCOUNTER 2019-06-12 11:10 | Inpatient (IN) ==
[2019-06-12] MEDS ORDERED: 0.9 % Sodium Chloride 1,000 ML ONE (11:25)
[2019-06-12] MEDS: 0.9 % Sodium Chloride 1,000 ML IVC SCH ×3 (11:49→18:28)
[2019-06-12 12:03] LABS: Basophils # 0.1 K/mcL (0.0-0.2); Basophils % 1.1 %; Eosinophils # 0.1 K/mcL (0.0-0.6); Eosinophils % 1.9 %; Hematocrit 41.4 % (37.5-50.1); Immature Granulocytes % 0.2 % (0-4); Lymphocytes # 1.6 K/mcL (0.6-4.6); Lymphocytes % 24.1 %; Mean Corpuscular HGB Conc 33.8 g/dL (31.6-35.5); Mean Corpuscular Hemoglobin 30.8 pg (28.0-33.3); Mean Platelet Volume 9.4 fL (9.4-12.4); Monocytes # 0.4 K/mcL (0.0-1.3); Monocytes % 6.3 %; Neutrophils # 4.3 K/mcL (1.6-8.9); Platelet Count 238 K/mcL (140-400); Red Blood Count 4.55 M/mcL (4.19-5.50); Red Cell Distribution Width 13.2 % (11.5-14.5); Segmented Neutrophils % 66.4 %; White Blood Count 6.5 K/mcL (4.3-11.1)
[2019-06-12 12:58] LABS: BUN/Creatinine Ratio 15 (6-26); Blood Urea Nitrogen 20 mg/dL (8-23); Calcium 8.8 mg/dL (8.6-10.3); Carbon Dioxide 24 mEq/L (23-29); Chloride 108 mEq/L (98-107); Glucose 153 mg/dL (70-105); Magnesium 1.8 mg/dL (1.6-2.6); Osmolality,Calculated 286 (280-300); Phosphorous 2.5 mg/dL (2.7-4.5); Sodium 135 mEq/L (136-145); eGFR For African Americans > 60 (> 60); eGFR For Non-African Americans 55 (> 60)
[2019-06-12 15:15] LABS: Bilirubin,Urine Negative (Negative); Blood,Urine Negative (Negative); Clarity,Urine Clear (Clear); Color,Urine Yellow (Yellow); Glucose,Urine (UA) Normal (Normal); Ketones,Urine Negative (Negative); Leukocyte Esterase,Urine Negative (Negative); Nitrite,Urine Negative (Negative); Protein,Urine Negative (Neg-Trace); Specific Gravity,Urine 1.018 (1.010-1.025); Urobilinogen,Urine Normal (Normal)
[2019-06-12] MEDS ORDERED: tiZANidine 4 MG TABLET PO PRN (16:49)
[2019-06-12] MEDS ORDERED: *HR* Dextrose 50 % in Water (Syg) 50 ML SYRINGE IVP PRN (16:56)
[2019-06-12] MEDS ORDERED: D5% in Water 1,000 ML IVC PRN (16:56)
[2019-06-12] MEDS ORDERED: Dextrose Gel 15 GM/37.5 ML TUBE PO PRN ×2 (16:56)
[2019-06-12] MEDS ORDERED: Ondansetron 4 MG/2 ML VIAL IVP PRN (17:02)
[2019-06-12] MEDS ORDERED: Naloxone 0.4 MG/ML INJ IVP PRN (17:02)
[2019-06-12 18:27] LABS: Folate 6.8 ng/mL (3.0-16.0)
[2019-06-12] MEDS: *HR* Heparin 5,000 UNIT/ML VIAL SQ SCH (18:38)
[2019-06-12] MEDS: Insulin LISPRO 300 UNITS/3 ML VIAL SQ SCH (18:38)
[2019-06-12] MEDS ORDERED: traZODone 50 MG TABLET PO SCH (21:00)
[2019-06-12] MEDS ORDERED: hydrOXYzine pamoate 25 MG CAPSULE PO SCH (21:00)
[2019-06-12] MEDS: Gabapentin 300 MG CAPSULE PO SCH (21:52)
[2019-06-13 04:00] LABS: Basophils # 0.1 K/mcL (0.0-0.2); Eosinophils # 0.1 K/mcL (0.0-0.6); Hematocrit 41.2 % (37.5-50.1); Hemoglobin 13.9 g/dL (12.9-16.9); Immature Granulocytes % 0.3 % (0-4); Immature Platelets 1.7 % (1.1-6.1); Lymphocytes # 1.6 K/mcL (0.6-4.6); Lymphocytes % 23.1 %; Mean Corpuscular HGB Conc 33.7 g/dL (31.6-35.5); Mean Corpuscular Hemoglobin 30.5 pg (28.0-33.3); Mean Corpuscular Volume 90.4 fL (83.0-100.0); Mean Platelet Volume 9.4 fL (9.4-12.4); Monocytes # 0.4 K/mcL (0.0-1.3); Monocytes % 5.9 %; Neutrophils # 4.6 K/mcL (1.6-8.9); Platelet Count 217 K/mcL (140-400); Red Blood Count 4.56 M/mcL (4.19-5.50); Segmented Neutrophils % 67.7 %; White Blood Count 6.8 K/mcL (4.3-11.1)
[2019-06-13 04:28] LABS: BUN/Creatinine Ratio 14 (6-26); Blood Urea Nitrogen 18 mg/dL (8-23); Calcium 8.4 mg/dL (8.6-10.3); Carbon Dioxide 22 mEq/L (23-29); Chloride 108 mEq/L (98-107); Glucose 110 mg/dL (70-105); Magnesium 1.7 mg/dL (1.6-2.6); Osmolality,Calculated 285 (280-300); Phosphorous 2.8 mg/dL (2.7-4.5); Potassium 4.1 mEq/L (3.5-5.1); Sodium 136 mEq/L (136-145); eGFR For African Americans > 60 (> 60); eGFR For Non-African Americans 55 (> 60)
[2019-06-13] MEDS: Insulin LISPRO 300 UNITS/3 ML VIAL SQ SCH ×4 (04:48→18:50)
[2019-06-13] MEDS: *HR* Heparin 5,000 UNIT/ML VIAL SQ SCH ×2 (06:59→18:52)
[2019-06-13] MEDS: Gabapentin 300 MG CAPSULE PO SCH ×3 (10:57→20:40)
[2019-06-13] MEDS ORDERED: Acetaminophen 325 MG TABLET PO PRN (11:01)
[2019-06-13] MEDS: amLODIPine 5 MG TABLET PO SCH (19:31)
[2019-06-14 01:58] LABS: BUN/Creatinine Ratio 17 (6-26); Blood Urea Nitrogen 20 mg/dL (8-23); Calcium 8.9 mg/dL (8.6-10.3); Carbon Dioxide 23 mEq/L (23-29); Chloride 105 mEq/L (98-107); Glucose 93 mg/dL (70-105); Osmolality,Calculated 286 (280-300); Potassium 3.8 mEq/L (3.5-5.1); Sodium 137 mEq/L (136-145); eGFR For African Americans > 60 (> 60); eGFR For Non-African Americans > 60 (> 60)
[2019-06-14] MEDS: *HR* Heparin 5,000 UNIT/ML VIAL SQ SCH ×2 (05:13→17:07)
[2019-06-14] MEDS: Insulin LISPRO 300 UNITS/3 ML VIAL SQ SCH ×4 (07:49→20:54)
[2019-06-14] MEDS: 0.9 % Sodium Chloride 1,000 ML IVC SCH (09:15)
[2019-06-14] MEDS: Gabapentin 300 MG CAPSULE PO SCH ×3 (09:27→20:55)
[2019-06-14] MEDS ORDERED: Cyanocobalamin (B-12) 1,000 MCG/ML VIAL IM ONE (14:51)
[2019-06-14] MEDS: amLODIPine 5 MG TABLET PO SCH (17:08)
[2019-06-15] MEDS: Insulin LISPRO 300 UNITS/3 ML VIAL SQ SCH ×5 (04:07→20:42)
[2019-06-15] MEDS: *HR* Heparin 5,000 UNIT/ML VIAL SQ SCH ×2 (05:04→17:12)
[2019-06-15] MEDS: Gabapentin 300 MG CAPSULE PO SCH ×3 (09:02→20:37)
[2019-06-15] MEDS: Cyanocobalamin (B-12) 1,000 MCG TABLET PO SCH (09:02)
[2019-06-15] MEDS: amLODIPine 5 MG TABLET PO SCH (17:12)
[2019-06-16] MEDS: *HR* Heparin 5,000 UNIT/ML VIAL SQ SCH (05:42)
[2019-06-16 07:08] VITALS: BP 138/78
[2019-06-16] MEDS: Insulin LISPRO 300 UNITS/3 ML VIAL SQ SCH (09:57)
[2019-06-16] MEDS: Cyanocobalamin (B-12) 1,000 MCG TABLET PO SCH (10:00)
[2019-06-16] MEDS: Gabapentin 300 MG CAPSULE PO SCH (10:00)
== END 2019-06-16 10:30 | DRG 312 ==
LOC: EMEROOARM 11:10 → 3BNU 11:10 → SUATTDRO 16:24 → 3BNU 17:01
PROVIDERS: ADMIT Pharmacist; ATTEND Family Medicine

== ENCOUNTER 2021-02-17 14:35 | Inpatient (IN) ==
[2021-02-17 15:23] LABS: Basophils # 0.1 K/mcL (0.0-0.2); Basophils % 0.7 %; Bilirubin,Urine Negative (Negative); Blood,Urine Negative (Negative); Clarity,Urine Clear (Clear); Color,Urine Light-Yellow (Yellow); Eosinophils # 0.1 K/mcL (0.0-0.6); Eosinophils % 0.7 %; Glucose,Urine (UA) >=1000 mg/dL (Normal); Hemoglobin 15.8 g/dL (12.9-16.9); Hyaline Casts,Urine Few per lpf (None Seen); Immature Granulocytes % 0.1 % (0-4); Ketones,Urine Negative (Negative); Leukocyte Esterase,Urine Negative (Negative); Lymphocytes # 1.7 K/mcL (0.6-4.6); Lymphocytes % 20.5 %; Mean Corpuscular HGB Conc 34.3 g/dL (31.6-35.5); Mean Corpuscular Volume 87.5 fL (83.0-100.0); Mean Platelet Volume 9.7 fL (9.4-12.4); Monocytes # 0.6 K/mcL (0.0-1.3); Monocytes % 7.4 %; Neutrophils # 5.9 K/mcL (1.6-8.9); Nitrite,Urine Negative (Negative); Platelet Count 287 K/mcL (140-400); Protein,Urine Negative (Neg-Trace); RBC,Urine 0-3 per hpf (0-3); Red Blood Count 5.26 M/mcL (4.19-5.50); Red Cell Distribution Width 13.6 % (11.5-14.5); Segmented Neutrophils % 70.6 %; Specific Gravity,Urine 1.016 (1.010-1.025); Squamous Epithelial Cell,Urine Few per hpf (None-Few); Urobilinogen,Urine Normal (Normal); WBC,Urine 0-3 per hpf (0-3); White Blood Count 8.4 K/mcL (4.3-11.1)
[2021-02-17 16:02] LABS: Alanine Aminotransferase 23 Units/L (7-52); Albumin 4.3 g/dL (3.5-5.7); Albumin/Globulin Ratio 1.4 (1.1-2.2); Alkaline Phosphatase 87 Units/L (34-104); Aspartate Amino Transferase 14 Units/L (13-39); BUN/Creatinine Ratio 12 (6-26); Bilirubin,Total 0.4 mg/dL (0.3-1.0); Blood Urea Nitrogen 16 mg/dL (8-23); Calcium 9.7 mg/dL (8.6-10.3); Carbon Dioxide 18 mEq/L (23-29); Chloride 104 mEq/L (98-107); Glucose 98 mg/dL (70-105); Osmolality,Calculated 279 (280-300); Potassium 3.4 mEq/L (3.5-5.1); Sodium 134 mEq/L (136-145); Total Protein 7.3 g/dL (6.4-8.9); Troponin I < 0.03 ng/mL (< 0.04); eGFR For African Americans > 60 (> 60); eGFR For Non-African Americans 53 (> 60)
[2021-02-17] MEDS ORDERED: cloNIDine HCL 0.1 MG TABLET PO ONE (16:40)
[2021-02-17] MEDS ORDERED: Acetaminophen 325 MG TABLET PO PRN (17:21)
[2021-02-17] MEDS ORDERED: Naloxone 0.4 MG/ML INJ IVP PRN (17:21)
[2021-02-17] MEDS ORDERED: Ondansetron 4 MG/2 ML VIAL IVP PRN (17:21)
[2021-02-17 17:48] LABS: Phosphorous 1.3 mg/dL (2.7-4.5)
[2021-02-17 18:01] LABS: Thyroid Stimulating Hormone 2.088 mcIU/mL (0.340-5.600)
[2021-02-17] MEDS ORDERED: Potassium Phosphate 44 MEQ in 0.9 % Sodium Chloride 250 ML IVPB ONE (18:37)
[2021-02-17] MEDS ORDERED: Dextrose Gel 15 GM/37.5 ML TUBE PO PRN ×2 (18:55)
[2021-02-17] MEDS ORDERED: *HR* Dextrose 50 % in Water (Vial) 50 ML VIAL IVP PRN (18:55)
[2021-02-17] MEDS ORDERED: D5% in Water 1,000 ML IVC PRN (18:55)
[2021-02-17] MEDS: Insulin LISPRO 300 UNITS/3 ML VIAL SUBQ SCH (21:27)
[2021-02-18 03:41] LABS: Basophils # 0.1 K/mcL (0.0-0.2); Basophils % 0.9 %; Eosinophils # 0.1 K/mcL (0.0-0.6); Eosinophils % 1.5 %; Hematocrit 49.2 % (37.5-50.1); Hemoglobin 16.9 g/dL (12.9-16.9); Immature Granulocytes % 0.2 % (0-4); Lymphocytes # 1.6 K/mcL (0.6-4.6); Lymphocytes % 18.9 %; Mean Corpuscular HGB Conc 34.3 g/dL (31.6-35.5); Mean Corpuscular Hemoglobin 30.5 pg (28.0-33.3); Mean Corpuscular Volume 88.8 fL (83.0-100.0); Mean Platelet Volume 9.8 fL (9.4-12.4); Monocytes # 0.7 K/mcL (0.0-1.3); Monocytes % 7.9 %; Platelet Count 298 K/mcL (140-400); Red Blood Count 5.54 M/mcL (4.19-5.50); Red Cell Distribution Width 13.9 % (11.5-14.5); Segmented Neutrophils % 70.6 %; White Blood Count 8.5 K/mcL (4.3-11.1)
[2021-02-18 04:04] LABS: BUN/Creatinine Ratio 16 (6-26); Blood Urea Nitrogen 19 mg/dL (8-23); Calcium 9.9 mg/dL (8.6-10.3); Carbon Dioxide 22 mEq/L (23-29); Chloride 102 mEq/L (98-107); Glucose 89 mg/dL (70-105); Magnesium 1.9 mg/dL (1.6-2.6); Osmolality,Calculated 282 (280-300); Potassium 3.5 mEq/L (3.5-5.1); Sodium 135 mEq/L (136-145); eGFR For African Americans > 60 (> 60); eGFR For Non-African Americans > 60 (> 60)
[2021-02-18] MEDS ORDERED: hydrALAZINE 10 MG TABLET PO ONE (04:35)
[2021-02-18 04:37] LABS: Estimated Average Glucose 123 mg/dl; Hemoglobin A1C 5.9 %
[2021-02-18] MEDS: Insulin LISPRO 300 UNITS/3 ML VIAL SUBQ SCH ×4 (07:32→21:16)
[2021-02-18] MEDS ORDERED: cloNIDine HCL 0.1 MG TABLET PO PRN (08:54)
[2021-02-18] MEDS: cloNIDine HCL 0.1 MG TABLET PO SCH ×2 (09:36→21:15)
[2021-02-18] MEDS: Gabapentin 400 MG CAPSULE PO SCH ×3 (09:37→21:16)
[2021-02-18] MEDS: Acetaminophen 325 MG TABLET PO SCH ×2 (09:38→16:20)
[2021-02-18] MEDS: Nicotine 14 MG PATCH.TD24 TD SCH (09:38)
[2021-02-18] MEDS: tiZANidine 4 MG TABLET PO PRN (12:04)
[2021-02-18] MEDS: amLODIPine 5 MG TABLET PO SCH (16:23)
[2021-02-18] MEDS: traZODone 50 MG TABLET PO SCH (21:16)
[2021-02-18] MEDS: hydrOXYzine pamoate 25 MG CAPSULE PO SCH (21:17)
[2021-02-19] MEDS: Acetaminophen 325 MG TABLET PO SCH ×3 (01:18→17:07)
[2021-02-19 03:27] LABS: Basophils # 0.1 K/mcL (0.0-0.2); Basophils % 0.9 %; Eosinophils # 0.1 K/mcL (0.0-0.6); Eosinophils % 1.8 %; Hematocrit 45.8 % (37.5-50.1); Hemoglobin 15.5 g/dL (12.9-16.9); Immature Granulocytes % 0.4 % (0-4); Lymphocytes # 1.6 K/mcL (0.6-4.6); Lymphocytes % 23.4 %; Mean Corpuscular HGB Conc 33.8 g/dL (31.6-35.5); Mean Corpuscular Hemoglobin 30.3 pg (28.0-33.3); Mean Corpuscular Volume 89.5 fL (83.0-100.0); Mean Platelet Volume 10.3 fL (9.4-12.4); Monocytes # 0.6 K/mcL (0.0-1.3); Monocytes % 8.4 %; Neutrophils # 4.4 K/mcL (1.6-8.9); Platelet Count 249 K/mcL (140-400); Red Blood Count 5.12 M/mcL (4.19-5.50); Red Cell Distribution Width 14.2 % (11.5-14.5); Segmented Neutrophils % 65.1 %; White Blood Count 6.8 K/mcL (4.3-11.1)
[2021-02-19 03:48] LABS: BUN/Creatinine Ratio 22 (6-26); Blood Urea Nitrogen 24 mg/dL (8-23); Calcium 9.3 mg/dL (8.6-10.3); Carbon Dioxide 20 mEq/L (23-29); Chloride 106 mEq/L (98-107); Glucose 106 mg/dL (70-105); Magnesium 2.1 mg/dL (1.6-2.6); Osmolality,Calculated 282 (280-300); Potassium 3.9 mEq/L (3.5-5.1); Sodium 134 mEq/L (136-145); eGFR For African Americans > 60 (> 60); eGFR For Non-African Americans > 60 (> 60)
[2021-02-19] MEDS: Insulin LISPRO 300 UNITS/3 ML VIAL SUBQ SCH ×4 (07:24→22:47)
[2021-02-19] MEDS: Gabapentin 400 MG CAPSULE PO SCH ×3 (08:50→20:44)
[2021-02-19] MEDS: cloNIDine HCL 0.1 MG TABLET PO SCH ×2 (08:51→20:45)
[2021-02-19] MEDS: Nicotine 14 MG PATCH.TD24 TD SCH (08:51)
[2021-02-19] MEDS: tiZANidine 4 MG TABLET PO PRN (08:51)
[2021-02-19] MEDS ORDERED: polyethylene glycoL 3350 17 GM POWD.PACK PO PRN (08:57)
[2021-02-19] MEDS: Sennosides/Docusate Sodium TABLET PO SCH ×2 (12:15→20:45)
[2021-02-19] MEDS: amLODIPine 5 MG TABLET PO SCH (17:06)
[2021-02-19] MEDS: hydrOXYzine pamoate 25 MG CAPSULE PO SCH (20:45)
[2021-02-19] MEDS: traZODone 50 MG TABLET PO SCH (20:45)
[2021-02-20] MEDS: Acetaminophen 325 MG TABLET PO SCH ×3 (00:42→17:10)
[2021-02-20] MEDS: Insulin LISPRO 300 UNITS/3 ML VIAL SUBQ SCH ×4 (08:26→22:02)
[2021-02-20] MEDS: Sennosides/Docusate Sodium TABLET PO SCH ×2 (09:06→19:46)
[2021-02-20] MEDS: Nicotine 14 MG PATCH.TD24 TD SCH (09:07)
[2021-02-20] MEDS: Gabapentin 400 MG CAPSULE PO SCH ×3 (09:07→19:47)
[2021-02-20] MEDS: cloNIDine HCL 0.1 MG TABLET PO SCH ×2 (09:07→19:46)
[2021-02-20] MEDS: amLODIPine 5 MG TABLET PO SCH (17:10)
[2021-02-20] MEDS: hydrOXYzine pamoate 25 MG CAPSULE PO SCH (19:46)
[2021-02-20] MEDS: traZODone 50 MG TABLET PO SCH (19:46)
[2021-02-21] MEDS: Acetaminophen 325 MG TABLET PO SCH ×3 (00:28→16:17)
[2021-02-21 02:08] LABS: Basophils # 0.1 K/mcL (0.0-0.2); Basophils % 1.2 %; Eosinophils # 0.2 K/mcL (0.0-0.6); Eosinophils % 2.4 %; Hematocrit 43.3 % (37.5-50.1); Hemoglobin 14.5 g/dL (12.9-16.9); Immature Granulocytes % 0.1 % (0-4); Lymphocytes # 1.8 K/mcL (0.6-4.6); Lymphocytes % 27.6 %; Mean Corpuscular HGB Conc 33.5 g/dL (31.6-35.5); Mean Corpuscular Hemoglobin 30.3 pg (28.0-33.3); Mean Corpuscular Volume 90.6 fL (83.0-100.0); Monocytes # 0.5 K/mcL (0.0-1.3); Monocytes % 7.6 %; Neutrophils # 4.1 K/mcL (1.6-8.9); Platelet Count 226 K/mcL (140-400); Red Blood Count 4.78 M/mcL (4.19-5.50); Segmented Neutrophils % 61.1 %; White Blood Count 6.7 K/mcL (4.3-11.1)
[2021-02-21 02:28] LABS: BUN/Creatinine Ratio 24 (6-26); Blood Urea Nitrogen 31 mg/dL (8-23); Carbon Dioxide 21 mEq/L (23-29); Chloride 109 mEq/L (98-107); Glucose 113 mg/dL (70-105); Osmolality,Calculated 293 (280-300); Potassium 3.8 mEq/L (3.5-5.1); Sodium 138 mEq/L (136-145); eGFR For African Americans > 60 (> 60); eGFR For Non-African Americans 55 (> 60)
[2021-02-21] MEDS: Insulin LISPRO 300 UNITS/3 ML VIAL SUBQ SCH ×4 (07:39→20:56)
[2021-02-21] MEDS: cloNIDine HCL 0.1 MG TABLET PO SCH ×2 (08:49→20:26)
[2021-02-21] MEDS: Sennosides/Docusate Sodium TABLET PO SCH (08:49)
[2021-02-21] MEDS: Gabapentin 400 MG CAPSULE PO SCH ×3 (08:50→20:27)
[2021-02-21] MEDS: Nicotine 14 MG PATCH.TD24 TD SCH (08:50)
[2021-02-21] MEDS: amLODIPine 5 MG TABLET PO SCH (16:17)
[2021-02-21 19:23] LABS: Adenovirus Not Detected (Not Detect); Bordetella Pertussis Not Detected (Not Detect); Chlamydophila pneumoniae Not Detected (Not Detect); Coronavirus 229E Not Detected (Not Detect); Coronavirus HKU1 Not Detected (Not Detect); Coronavirus NL63 Not Detected (Not Detect); Coronavirus OC43 Not Detected (Not Detect); Human Metapneumovirus Not Detected (Not Detect); Human Rhinovirus/Enterovirus Not Detected (Not Detect); Influenza A Subtype 2009 H1 Not Detected (Not Detect); Influenza B Not Detected (Not Detect); Mycoplasma pneumoniae Not Detected (Not Detect); Parainfluenza Virus 1 Not Detected (Not Detect); Parainfluenza Virus 2 Not Detected (Not Detect); Parainfluenza Virus 3 Not Detected (Not Detect); Parainfluenza Virus 4 Not Detected (Not Detect); Respiratory Syncytial Virus Not Detected (Not Detect); SARS-CoV-2 Not Detected (Not Detect)
[2021-02-21] MEDS: traZODone 50 MG TABLET PO SCH (20:26)
[2021-02-21] MEDS: hydrOXYzine pamoate 25 MG CAPSULE PO SCH (20:27)
[2021-02-22] MEDS: Acetaminophen 325 MG TABLET PO SCH ×2 (00:30→07:58)
[2021-02-22 02:15] LABS: Basophils # 0.1 K/mcL (0.0-0.2); Basophils % 1.2 %; Eosinophils # 0.1 K/mcL (0.0-0.6); Eosinophils % 2.1 %; Hematocrit 43.7 % (37.5-50.1); Hemoglobin 14.2 g/dL (12.9-16.9); Immature Granulocytes % 0.2 % (0-4); Lymphocytes # 1.7 K/mcL (0.6-4.6); Lymphocytes % 26.4 %; Mean Corpuscular HGB Conc 32.5 g/dL (31.6-35.5); Mean Corpuscular Hemoglobin 29.6 pg (28.0-33.3); Mean Platelet Volume 9.7 fL (9.4-12.4); Monocytes # 0.4 K/mcL (0.0-1.3); Monocytes % 6.4 %; Neutrophils # 4.2 K/mcL (1.6-8.9); Platelet Count 231 K/mcL (140-400); Red Cell Distribution Width 13.9 % (11.5-14.5); Segmented Neutrophils % 63.7 %; White Blood Count 6.6 K/mcL (4.3-11.1)
[2021-02-22 02:32] LABS: BUN/Creatinine Ratio 26 (6-26); Blood Urea Nitrogen 28 mg/dL (8-23); Calcium 9.1 mg/dL (8.6-10.3); Carbon Dioxide 22 mEq/L (23-29); Chloride 109 mEq/L (98-107); Glucose 114 mg/dL (70-105); Magnesium 1.9 mg/dL (1.6-2.6); Osmolality,Calculated 290 (280-300); Potassium 3.9 mEq/L (3.5-5.1); Sodium 137 mEq/L (136-145); eGFR For African Americans > 60 (> 60); eGFR For Non-African Americans > 60 (> 60)
[2021-02-22] MEDS: Insulin LISPRO 300 UNITS/3 ML VIAL SUBQ SCH ×2 (07:39→12:21)
[2021-02-22] MEDS: cloNIDine HCL 0.1 MG TABLET PO SCH (07:53)
[2021-02-22] MEDS: Gabapentin 400 MG CAPSULE PO SCH (07:53)
[2021-02-22] MEDS: Nicotine 14 MG PATCH.TD24 TD SCH (07:57)
[2021-02-22 11:04] VITALS: BP 117/80
== END 2021-02-22 15:29 | DRG 641 ==
LOC: EMEROOARM 14:35 → 2ANU 14:35 → SUATTDRO 17:10 → 2ANU 18:16
PROVIDERS: ADMIT Pharmacist; ATTEND Pharmacist